=== PATIENT | female | born 1950 ===

== ENCOUNTER 2016-08-18 19:29 | Observation (INO) | payer OTHER, MEDICAID ==
[2016-08-18 19:30] VITALS: BMI 33.7
[2016-08-18 20:18] LABS: MEAN CELL VOLUME 122.1 fL (80.0-105.0); MEAN CORPUSCULAR HEMOGLOBIN 41.1 pg (25.0-35.0); MEAN CORPUSCULAR HGB CONC 33.7 g/dl (31.0-37.0); MEAN PLATELET VOLUME 9.4 fl (7.0-11.0); RED CELL DISTRIBUTION WIDTH 19.7 % (11.5-14.5)
--- NOTE | 2016-08-18 20:20 | ED PDOC ---
Arrival/HPI - General Historian: Patient - History of Present Illness Time/Duration: < month Symptom Onset: Gradual Symptom Course: Worsening Severity Level: 4 Activities at Onset: Rest Context: Home <Carmela Story - Last Filed: 08/18/16 22:12> <Reuben Yost - Last Filed: 08/18/16 22:33> - General Chief Complaint: Weakness/Neurological Deficit Time Seen by Provider: 08/18/16 19:36 - History of Present Illness Narrative History of Present Illness (Text): 08/18/16 20:15 This is a 66Y F with PMH HTN, HLD, CVA, chronic hematuria and vertigo who is here for weakness for the past 3 weeks. She reports since Mother's Day she had a blood vessel cauterized and has not been feeling well. She has been feeling weak and 2 weeks ago she had L shoulder/chest pain. She saw her dry starch operator who she reports "may repeat a stress test" if her pain continues. Her stress test was in January 2016 and she reports was normal. The patient also says that yesterday her tongue felt numb and then her whole body started to feel numb. She was resting at home at the time. She denies facial droop or slurred speech. Her numbness improved on its own. Today she began to have lightheadedness and felt SOB. She denies n/v/d, CP, numbness/tingling, fever, chills, vision changes, weight loss. Patient says she has been having chronic hematuria for many years. 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 (Carmela Story) Past Medical History - Provider Review Nursing Documentation Reviewed: Yes - Cardiac Hx Cardiac Disorders: Yes Hx Hypertension: Yes - Pulmonary Hx Respiratory Disorders: No - Neurological Hx Neurological Disorder: Yes Hx Migraine: Yes Hx Vertigo: Yes Other/Comment: Short term memory loss - HEENT Hx HEENT Disorder: No - Renal Hx Renal Disorder: No - Endocrine/Metabolic Hx Endocrine Disorders: No - Hematological/Oncological Hx Blood Disorders: Yes Hx Cancer: Yes (melanoma) - Integumentary Hx Dermatological Disorder: No - Gastrointestinal Hx Gastrointestinal Disorders: Yes Other/Comment: Colonic polyps - Genitourinary/Gynecological Hx Genitourinary Disorders: Yes Hx Hematuria: Yes - Psychiatric Hx Psychophysiologic Disorder: No Hx Substance Use: No - Surgical History Hx Orthopedic Surgery: Yes (L knee x2) Other/Comment: cyst removal from both breasts. right brest duct removal <Bishnu Storyystal - Last Filed: 08/18/16 22:12> Family/Social History - Physician Review Nursing Documentation Reviewed: Yes Family/Social History: Hypertension, CAD/VA Smoking Status: Never Smoked Hx Alcohol Use: No Hx Substance Use: No <AlexsanderousmaneCarmela - Last Filed: 08/18/16 22:12> Allergies/Home Meds <AlexsanderousmaneCarmela - Last Filed: 08/18/16 22:12> <Reuben Yost - Last Filed: 08/18/16 22:33> Allergies/Adverse Reactions: Allergies nut - unspecified Adverse Reaction (Verified 08/18/16 19:32) ANAPHYLAXIS shellfish derived Adverse Reaction (Verified 08/18/16 19:32) ANGIOEDEMA FRUIT Allergy (Uncoded 08/18/16 19:32) SHORTNESS OF BREATH Home Medications: Home Meds Medication Instructions Recorded Confirmed Clopidogrel [Plavix] 1 tab PO DAILY 08/18/16 08/18/16 Levocetirizine Dihydrochloride 1 tab PO DAILY 08/18/16 08/18/16 [Xyzal] Pantoprazole [Protonix EC Tab] 1 tab PO DAILY 08/18/16 08/18/16 Simvastatin [Zocor] 1 tab PO DAILY 08/18/16 08/18/16 Zolpidem [Ambien] 1 tab PO PRN PRN 08/18/16 08/18/16 Review of Systems - Physician Review All systems were reviewed & negative as marked: Yes - Review of Systems Constitutional: Fatigue. absent: Fevers, Night Sweats Eyes: Normal. absent: Vision Changes ENT: Normal. absent: Hearing Changes Respiratory: SOB. absent: Cough, Sputum Cardiovascular: Normal. absent: Chest Pain, Palpitations, Edema Gastrointestinal: Normal. absent: Abdominal Pain, Diarrhea, Nausea, Vomiting Genitourinary Female: Hematuria. absent: Dysuria, Frequency Musculoskeletal: Normal. absent: Arthralgias, Back Pain Skin: Normal. absent: Rash, Pruritis Neurological: Dizziness, Other (weakness) Endocrine: Normal. absent: Diaphoresis Hemo/Lymphatic: Normal. absent: Adenopathy Psychiatric: Normal. absent: Anxiety, Depression <AlexsanderBishnu romeoCarmela - Last Filed: 08/18/16 22:12> Physical Exam Vital Signs Reviewed: Yes Temperature: Afebrile Blood Pressure: Normal Pulse: Tachycardic Respiratory Rate: Normal Appearance: Positive for: Well-Appearing, Non-Toxic, Comfortable Pain Distress: None Mental Status: Positive for: Alert and Oriented X 3 Finger Stick Blood Glucose: 199 - Systems Exam Head: Present: Atraumatic, Normocephalic Pupils: Present: PERRL Extroacular Muscles: Present: EOMI Conjunctiva: Present: Normal Mouth: Present: Moist Mucous Membranes Neck: Present: Normal Range of Motion Respiratory/Chest: Present: Clear to Auscultation, Good Air Exchange. No: Respiratory Distress, Accessory Muscle Use Cardiovascular: Present: Regular Rate and Rhythm, Normal S1, S2. No: Murmurs Abdomen: Present: Normal Bowel Sounds. No: Tenderness, Distention, Peritoneal Signs Back: Present: Normal Inspection Upper Extremity: Present: Normal Inspection. No: Cyanosis, Edema Lower Extremity: Present: Normal Inspection. No: Edema Neurological: Present: GCS=15, CN II-XII Intact, Speech Normal, Motor Func Grossly Intact, Normal Sensory Function Skin: Present: Warm, Dry, Normal Color. No: Rashes Psychiatric: Present: Alert, Oriented x 3, Normal Insight, Normal Concentration <PorshaCarmela - Last Filed: 08/18/16 22:12> <Reuben Yost - Last Filed: 08/18/16 22:33> Vital Signs Temp Pulse Pulse Resp BP BP Pulse Ox 08/18/16 22:11 82 16 133/74 97 08/18/16 19:33 91 H 17 138/80 08/18/16 19:30 98.3 F 92 H 24 139/78 99 Medical Decision Making Re-evaluation Time: 21:59 Reassessment Condition: Unchanged - Lab Interpretations I have reviewed the lab results: Yes Interpretation: Abnormal lab values - RAD Interpretation Lead Material Handler: Radiologist - EKG Interpretation Interpreted by ED Physician: Yes Type: 12 lead EKG Comparison: No previous EKG avail. <Carmela Story - Last Filed: 08/18/16 22:12> <Reuben Yost - Last Filed: 08/18/16 22:33> ED Course and Treatment: 08/18/16 21:06 Impression: This is a 66Y F with PMH HTN, CVA, HLD, chronic hematuria and vertigo here for weakness x 3 weeks. DDX: CVA v. anemia Plan: -- CBC, CMP, U/A, D-dimer, Pt/PTT -- EKG, CXR -- CT head --Reassess Progress note: Patient noted to have abnormal CBC with leukocytosis, anemia and thrombocytopenia. D-dimer elevated. CBC repeated. CT angio ordered. CT head and CT angio noted to be negative for acute abnormality. Spoke with Dr. Will who is covering [facility] who will accept the patient into their service. Spoke with Dr. Bermudez, size marker who suggested that patient probably has leukemia and may be in acute blast crisis. She will need to be transfused 2U of Irradiated blood products only. Dr. Bermudez reports she will see the patient in the AM and may want to transfer patient to a larger facility who has a more extensive cancer center. Prior Visits: Notes and results from previous visits were reviewed. 08/18/16 21:47 Admit Patient: Re-evaluation. Patient feels the same. Discussed results and plan to admit with patient who expresses understanding. All questions answered and there is agreement with the plan. (Carmela Story) In agreement with resident note, which includes further HPI details. Patient was seen and evaluated with resident, came up with plan and treatment together. 08/18/16 22:28 Patient seen and examined with resident. Her lab results are noted and concerning for a possible new leukemia diagnosis with possible blast crisis. Case was discussed with Dr. Will, who said to admit to Dr. Damon' service. Resident discussed case with Dr. Bermudez, who recommended blood transfusion of irradiated PRBCs and she will assess the case in the am and advise. (Reuben Yost ) - Lab Interpretations Lab Results: 08/18/16 21:15 08/18/16 20:00 Lab Results 08/18/16 21:33: Blood Type Confirm A POSITIVE 08/18/16 21:20: Blood Type A POSITIVE, Antibody Screen Negative, Crossmatch See Detail, BBK History Checked No verified bt 08/18/16 21:15: WBC 100.8 H*, RBC 1.47 L, Hgb 6.0 L*, Hct 17.8 L*, MCV 121.1 H, MCH 40.8 H, MCHC 33.7, RDW 19.9 H, Plt Count 43 L*, MPV 8.9, [place] % (Auto) 0.4 L , Eos % (Auto) 0.0 L, [place] # 0.4, Eos # 0.0 08/18/16 20:52: Urine Color Yellow, Urine Appearance Clear, Urine pH 6.0, Ur Specific [place] 1.025, Urine Protein Negative, Urine Glucose (UA) Negative, Urine Ketones Negative, Urine Blood Large H, Urine Nitrate Negative, Urine Bilirubin Negative, Urine Urobilinogen 0.2, Ur Leukocyte Esterase Trace H, Urine RBC 10 - 15, Urine WBC 2 - 5, Ur Epithelial Cells 3 - 4, Urine Bacteria Rare, Hyaline Casts 0 - 2 08/18/16 20:00: Uric Acid 7.4 H 08/18/16 20:00: PT 10.7, INR 0.99, APTT 20.5 L, D-Dimer, Quantitative 1.63 H 08/18/16 20:00: Sodium 138, Potassium 4.0, Chloride 104, Carbon Dioxide 25, Anion Gap 13, BUN 32 H, Creatinine 1.0, Est GFR ( Amer) > 60, Est GFR ( Non-Af Amer) 56, Random Glucose 157 H, Calcium 9.0, Magnesium 2.1, Total Bilirubin 0.3, AST 39, ALT 33, Alkaline Phosphatase 47, Lactate Dehydrogenase 2832 H, Total Creatine Kinase 30 L, Troponin I < 0.01, Total Protein 7.0, Albumin 4.1, Globulin 2.9, Albumin/Globulin Ratio 1.4, Lipase 162 08/18/16 20:00: WBC 111.2 H*, RBC 1.63 L, Hgb 6.7 L*, Hct 19.9 L*, MCV 122.1 H, MCH 41.1 H, MCHC 33.7, RDW 19.7 H, Plt Count 52 L, MPV 9.4, Gran % Pending, Lymph % (Auto) Pending, [place] % (Auto) Pending, Eos % (Auto) Pending, Baso % ( Auto) Pending, Gran # Pending, Lymph # Pending, [place] # Pending, Eos # Pending, Baso # Pending - RAD Interpretation Narrative RAD Interpretations (Text): 08/18/16 21:58 EXAM:CT Angiography Chest With Intravenous Contrast EXAM DATE/TIME: 08/18/2016 8:35 PM COMPARISON: There are no prior studies for comparison. FINDINGS: Artifacts: Motion artifact degrades image quality. Heart, aorta and Pulmonary arteries: Heart size is normal. There is trace pericardial effusion.There is no aneurysm or dissection.There are vascular calcifications. There is perfusion of the 3 arch vessels.There are no pulmonary emboli. Lungs and pleural spaces: Trachea and main bronchi are patent. There is minimal apical scarring. There is dependent atelectasis greatest in the lower lobes. There is atelectasis /scarring in the middle lobe and lingula. There is fatty pleural thickening at the left base. There is no focal consolidation. There are no effusions. OLESYA FARMER | Preliminary Radiology Report STORAGE FACILITY HOUSEKEEPER (QA) DISCREPANCY? If there is a discrepancy between the preliminary and final interpretation, please notify [email or web address] via [email or web address]. If you do not have access to our QA portal, call our QA team at [phone] CONFIDENTIALITY STATEMENT This report is intended only for the use of the referring physician, and only in accordance with law, If you received this in error, call [phone] Page 2 of 2 Mediastinum: Esophagus is unremarkable. There no pathologically enlarged mediastinal or hilar nodes. Thyroid: Thyroid is unremarkable Bones/joints: There are no acute osseous abnormalities Soft tissues: unremarkable Upper abdomen: There are no acute abnormalities in the visualized portion of the abdomen. IMPRESSION: Slightly limited by patient motion, no aneurysm, dissection or pulmonary embolus ; no focal pneumonia CT Head Without Intravenous Contrast 08/18/2016 7:59 PM COMPARISON: There are no prior studies for comparison. FINDINGS: Brain: There is prominence of sulci, gyri and ventricles. There is no midline shift. There are no intraaxial or extra axial mass lesions or areas of hemorrhage. Wade-white differentiation is maintained. Ventricles: See above. Bony structures: Cranial vault is intact. Soft tissues: unremarkable Sinuses: There is no acute sinusitis. Ears and mastoids: Middle ears and mastoids unremarkable. Orbits: Orbital contents are unremarkable. IMPRESSION: No acute intracranial abnormality 08/18/16 22:00 CXR showed no active disease. Please see final report. (Carmela Story) Radiology Orders: 08/18/16 19:59 HEAD W/O CONTRAST [CT] Stat CHEST PORTABLE [RAD] Stat 08/18/16 20:35 ANGIO CHEST PE PROTOCOL [CT] Stat - EKG Interpretation EKG Interpretation (Text): 08/18/16 22:00 Hr: 94. NSR. Intervals normal. (Carmela Story) - Medication Orders Current Medication Orders: Discontinued Medications Iodixanol (Visipaque 320 Mg/Ml 100 Ml) Confirm Administered Dose 100 ml IV .STThe Whistle- EasySize ONE Stop: 08/18/16 20:41 - PA / GARBAGE COLLECTOR SUPERVISOR / Resident Statement / has reviewed & agrees with the documentation as recorded. BRUCE has examined the patient and agrees with the treatment plan. <Reuben Yost - Last Filed: 08/18/16 22:33> Disposition/Present on Arrival - Present on Arrival Any Indicators Present on Arrival: No History of DVT/PE: No History of Uncontrolled Diabetes: No Urinary Catheter: No History of Decub. Ulcer: No History Surgical Site Infection Following: None - Disposition Have Diagnosis and Disposition been Completed?: Yes Disposition Time: 22:10 Patient Plan: Admission <Carmela Story - Last Filed: 08/18/16 22:12> <Reuben Yost - Last Filed: 08/18/16 22:33> - Disposition Diagnosis: Elevated WBCs, Anemia Disposition: HOSPITALIZED Patient Problems: Current Active Problems Problem Status Onset Anemia Acute Elevated WBCs Acute Condition: FAIR Print Language: MOHAWK Referrals: Jasson Velazquez MD [Primary Care Provider] - Follow up with primary Chinyere Bermudez MD [Staff Provider] - Follow up with primary
[2016-08-18 20:26] LABS: ALB/GLOB RATIO 1.4 (1.1-1.8); ALKALINE PHOSPHATASE 47 U/L (38-133); ALT/SGPT 33 U/L (7-56); AST/SGOT 39 U/L (15-39); BILIRUBIN,TOTAL 0.3 mg/dL (0.2-1.3); BLOOD UREA NITROGEN 32 mg/dL (7-21); CARBON DIOXIDE 25 mmol/L (21-33); CHLORIDE 104 mmol/L (98-107); GFR AFRICAN-AMERICAN > 60; GLUCOSE,RANDOM 157 mg/dL (70-110); LIPASE 162 U/L (23-300); MAGNESIUM 2.1 mg/dL (1.7-2.2); SODIUM 138 mmol/L (132-148)
[2016-08-18 20:29] LABS: INR 0.99 (0.93-1.08); PARTIAL THROMBOPLASTIN TIME 20.5 Seconds (23.7-30.8); WHITE BLOOD COUNT 111.2 10^3/ul (4.5-11.0)
[2016-08-18 20:30] LABS: HEMATOCRIT 19.9 % (36.0-48.0); PLATELET COUNT 52 10^3/uL (120.0-450.0)
[2016-08-18 20:31] LABS: D DIMER 1.63 mg/L FEU (0-0.50)
[2016-08-18] MEDS ORDERED: Iodixanol 320 MG/ML 100 ML BOTTLE IV ONE (20:40)
[2016-08-18 20:44] LABS: TROPONIN I < 0.01 ng/mL
[2016-08-18 21:12] LABS: URINE BILIRUBIN NEGATIVE (NEGATIVE); URINE BLOOD LARGE (NEGATIVE); URINE GLUCOSE (UA) NEGATIVE (NEGATIVE); URINE KETONE NEGATIVE (NEGATIVE); URINE LEUKOCYTE ESTERASE TRACE Leu/uL (NEGATIVE); URINE PROTEIN NEGATIVE mg/dL (<30 mg/dL); URINE UROBILINOGEN 0.2 E.U./dL (<1 E.U./dL)
[2016-08-18 21:23] LABS: URINE APPEARANCE CLEAR (CLEAR); URINE COLOR YELLOW (YELLOW)
[2016-08-18 21:24] LABS: ADD MANUAL DIFF? NO
[2016-08-18 21:34] LABS: MEAN CELL VOLUME 121.1 fL (80.0-105.0); MEAN CORPUSCULAR HEMOGLOBIN 40.8 pg (25.0-35.0); MEAN CORPUSCULAR HGB CONC 33.7 g/dl (31.0-37.0); MEAN PLATELET VOLUME 8.9 fl (7.0-11.0); MONO # 0.4 (0.1-0.6); MONO % 0.4 % (1.0-6.0); RED CELL DISTRIBUTION WIDTH 19.9 % (11.5-14.5)
--- NOTE | 2016-08-18 21:39 | CT ---
EXAM: CT Head Without Intravenous Contrast CLINICAL HISTORY: 66 years old, female; Pain; Headache; Headache not specified; Additional info: R/O CVA TECHNIQUE: Axial computed tomography images of the head/brain without intravenous contrast. This CT exam was performed using one or more of the following dose reduction techniques: automated exposure control, adjustment of the mA and/or kV according to patient size, and/or use of iterative reconstruction technique. EXAM DATE/TIME: 08/18/2016 7:59 PM COMPARISON: There are no prior studies for comparison. FINDINGS: Brain: There is prominence of sulci, gyri and ventricles. There is no midline shift. There are no intra-axial or extra axial mass lesions or areas of hemorrhage. Wade-white differentiation is maintained. Ventricles: See above. Bony structures: Cranial vault is intact. Soft tissues: unremarkable Sinuses: There is no acute sinusitis. Ears and mastoids: Middle ears and mastoids unremarkable. Orbits: Orbital contents are unremarkable. IMPRESSION: No acute intracranial abnormality
[2016-08-18 21:42] LABS: WHITE BLOOD COUNT 100.8 10^3/ul (4.5-11.0)
[2016-08-18 21:43] LABS: HEMATOCRIT 17.8 % (36.0-48.0)
[2016-08-18 21:44] LABS: PLATELET COUNT 43 10^3/uL (120.0-450.0)
[2016-08-18 21:56] LABS: URINE BACTERIA RARE (NEG)
[2016-08-19] MEDS: Sodium Chloride 0.9% 1,000 ML IV SCH ×2 (00:33→20:53)
[2016-08-19 07:46] LABS: MEAN CELL VOLUME 115.3 fL (80.0-105.0); MEAN CORPUSCULAR HEMOGLOBIN 38.1 pg (25.0-35.0); MEAN PLATELET VOLUME 9.9 fl (7.0-11.0); PLATELET COUNT 42 10^3/uL (120.0-450.0); RED CELL DISTRIBUTION WIDTH 21.5 % (11.5-14.5)
[2016-08-19] MEDS: Pantoprazole 40 mg EC Tab PO SCH (07:47)
[2016-08-19 07:54] LABS: ADD MANUAL DIFF? NO; HEMATOCRIT 23.3 % (36.0-48.0)
[2016-08-19 08:01] LABS: ALB/GLOB RATIO 1.3 (1.1-1.8); ALKALINE PHOSPHATASE 38 U/L (38-133); ALT/SGPT 31 U/L (7-56); AST/SGOT 30 U/L (15-39); BILIRUBIN,TOTAL 0.4 mg/dL (0.2-1.3); BLOOD UREA NITROGEN 29 mg/dL (7-21); CALCIUM 8.5 mg/dL (8.4-10.5); CARBON DIOXIDE 26 mmol/L (21-33); CHLORIDE 106 mmol/L (98-107); GFR AFRICAN-AMERICAN > 60; GLUCOSE,RANDOM 105 mg/dL (70-110); POTASSIUM 4.4 mmol/L (3.6-5.0); SODIUM 138 mmol/L (132-148); TOTAL PROTEIN 6.9 g/dL (5.8-8.3)
[2016-08-19 08:17] LABS: ADD MANUAL DIFF? NO
--- NOTE | 2016-08-19 08:26 | RAD ---
HISTORY: SOB COMPARISON: No prior. FINDINGS: LUNGS: No active pulmonary disease. PLEURA: No significant pleural effusion identified, no pneumothorax apparent. CARDIOVASCULAR: Normal. OSSEOUS STRUCTURES: No significant abnormalities. VISUALIZED UPPER ABDOMEN: Normal. OTHER FINDINGS: None. IMPRESSION: No active disease.
--- NOTE | 2016-08-19 08:31 | CP.PCM.HP ---
History of Present Illness - History of Present Illness History of Present Illness: PGY-1 h&P 66 yo angie with PMH of HTN, HLD, CVA, vertigo and chronic hematuria presented to ED for weakness. Patient states that about 2-3 weeks ago she had a blood vessel cauterized and since then has not been feeling well. She states that has had migraine headaches and fatigue. Patient state that yesterday she felt numbness throughout her body her symptoms were progressively worsening so she decided to come to the ED. She had chest pain 2 weeks and saw her program planner. She was told her heart was doing well and her stress test in Jan was normal. She also reports teeth sensitivity, chills, constipation, increase of SOB with excretion, occasional palpitations, and sore throat. Patient states that she has hot flashes that occurs at night for many years. She denies wt loss, fever, abd pain, n/v. Patient reports history of vertigo that is intermittent. 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 Patient states that she had melanoma that was removed. She had 5 polpys on colonoscopy that were removed. PMH: HTN, HLD, CVA, vertigo, hematuria, melanoma s/p resection PSH: Left knee surgery, breast cyst removal bilateral, right breast duct removal social hx: former smoker (quit 2009) denies alcohol use, denies illicit drug use fam hx: cancer in multiple siblings allergy: nuts, shellfish, fruit, percocet- hallucinations Present on Admission - Present on Admission Any Indicators Present on Admission: No Review of Systems - Constitutional Constitutional: Chills, Fatigue, Night Sweats. absent: Fever, Weight Loss - EENT Eyes: absent: Blurred Vision, Change in Vision Nose/Mouth/Throat: Sore Throat. absent: Nasal Congestion - Cardiovascular Cardiovascular: Chest Pain, Dyspnea on Exertion, Palpitations. absent: Dyspnea - Respiratory Respiratory: Dyspnea on Exertion. absent: Cough, Hemoptysis - Gastrointestinal Gastrointestinal: Constipation, Nausea. absent: Abdominal Pain, Diarrhea, Vomiting - Genitourinary Genitourinary: Hematuria. absent: Dysuria, Urinary Frequency - Musculoskeletal Musculoskeletal: Numbness. absent: Atrophy, Muscle Weakness, Myalgias - Integumentary Integumentary: absent: Rash, Skin Ulcer, Swelling, Wounds - Neurological Neurological: Dizziness, Numbness, Headaches, Vertigo, Weakness. 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) - RENAL Hx Chronic Kidney Disease: No - ENDOCRINE/METABOLIC Hx Endocrine Disorders: No - HEMATOLOGICAL/ONCOLOGICAL Hx Blood Disorders: Yes Hx Cancer: Yes (melanoma of right breast) - INTEGUMENTARY Hx Dermatological Problems: No - MUSCULOSKELETAL/RHEUMATOLOGICAL Hx Musculoskeletal Disorders: Yes Hx Falls: Yes - GASTROINTESTINAL Hx Gastrointestinal Disorders: Yes Other/Comment: 5 colonic polyps - GENITOURINARY/GYNECOLOGICAL Hx Genitourinary Disorders: Yes Hx Hematuria: Yes (chronic) - PSYCHIATRIC Hx Psychophysiologic Disorder: No Hx Substance Use: No - SURGICAL HISTORY Hx Surgeries: Yes Hx Orthopedic Surgery: Yes (Left knee x2) Other/Comment: cyst removal from both breasts. right brest duct removal Meds Allergies/Adverse Reactions: Allergies Allergy/AdvReac Type Severity Reaction Status Date / Time nut - unspecified AdvReac ANAPHYLAXIS Verified 08/18/16 19:32 shellfish derived AdvReac ANGIOEDEMA Verified 08/18/16 19:32 FRUIT Allergy SHORTNESS Uncoded 08/18/16 19:32 OF BREATH Physical Exam - Constitutional Appears: Well, No Acute Distress - Head Exam Head Exam: ATRAUMATIC, NORMOCEPHALIC - Eye Exam Eye Exam: Normal appearance - ENT Exam ENT Exam: Mucous Membranes Moist - Respiratory Exam Respiratory Exam: Clear to Auscultation Bilateral, NORMAL BREATHING PATTERN. absent: Rales, Rhonchi, Wheezes, Respiratory Distress - Cardiovascular Exam Cardiovascular Exam: REGULAR RHYTHM, +S1, +S2. absent: Tachycardia, Diastolic murmur, Systolic Murmur - GI/Abdominal Exam GI & Abdominal Exam: Normal Bowel Sounds, Soft. absent: Distended, Firm, Guarding, Tenderness - Extremities Exam Extremities exam: Positive for: normal inspection. Negative for: pedal edema - Neurological Exam Neurological exam: Alert, Oriented x3 - Skin Skin Exam: Dry, Intact, Pallor, Pallor, Warm Results - Vital Signs Recent Vital Signs: Last Vital Signs Temp 98.2 F 08/19/16 06:28 Pulse 74 08/19/16 06:28 Resp 24 08/19/16 06:28 BP 115/61 08/19/16 06:28 Pulse Ox 99 08/19/16 05:37 - Labs Result Diagrams: 08/19/16 05:00 08/19/16 05:00 Labs: Laboratory Results - last 24 hr 08/19/16 08/19/16 05:00 05:00 WBC 93.0 H* RBC 2.02 L Hgb 7.7 L D Hct 23.3 L MCV 115.3 H MCH 38.1 H MCHC 33.0 RDW 21.5 H Plt Count 42 L* MPV 9.9 Sodium 138 Potassium 4.4 Chloride 106 Carbon Dioxide 26 Anion Gap 10 BUN 29 H Creatinine 0.9 Est GFR ( Amer) > 60 Est GFR (Non-Af Amer) > 60 Random Glucose 105 Calcium 8.5 Total Bilirubin 0.4 AST 30 ALT 31 Alkaline Phosphatase 38 Total Protein 6.9 Albumin 3.9 Globulin 3.0 Albumin/Globulin Ratio 1.3 Assessment & Plan - Assessment and Plan (Free Text) Assessment: 66 yo female with PMH of HTN, HLD, CVA, vertigo and chronic hematuria presented to ED for weakness and numbness, found to have WBC of 100, anemia of 6.7, and thrombocytopenia. Plan: 1. elevated WBC - 111 on admission - heme/onc consulted - cont to monitor 2. anemia - transfused 1 unit irradited pRBC - IVF - iron studies, TSH, folate and B12 - continue to monitor 3. weakness/numbess - head CT- negative 4. sob on exertion - d-dimer elevated - CTA negative 3. hematuria - consult urology - urine culture ppx GI- protonix DVT- SCDs
[2016-08-19 08:47] LABS: IRON 197 ug/dL (45-180)
[2016-08-19] MEDS ORDERED: Non Formulary Medication (Simvastatin [Zocor] 1 TAB) PO SCH (10:00)
--- NOTE | 2016-08-19 10:48 | CT ---
PROCEDURE: CT Chest with contrast (Pulmonary Angiogram) HISTORY: sob - r/o PE COMPARISON: None available. TECHNIQUE: Axial computed tomography images were obtained of the chest in the pulmonary arterial phase of enhancement. Coronal and sagittal reformatted images were created and reviewed. Study is limited by motion artifact. Intravenous contrast dose: 100 cc Visipaque 320 Radiation dose: Total exam DLP = 490.66 mGy-cm. This CT exam was performed using one or more of the following dose reduction techniques: Automated exposure control, adjustment of the mA and/or kV according to patient size, and/or use of iterative reconstruction technique. FINDINGS: PULMONARY ARTERIES: Visualized portions of the pulmonary trunk, right and left main, lobar and segmental and proximal subsegmental branches of the pulmonary arteries are patent. No definitive filling defects seen to suggest acute central pulmonary embolus. The pulmonary trunk measures 2.74 cm in transverse dimension. AORTA: Ascending thoracic aorta exhibits normal caliber measuring approximately 2.26 cm. Descending thoracic aorta measures approximately 2.1 cm. LUNGS: Discrete localized area of atelectasis/scarring in the left lingular and to a lesser degree middle lobe regions extending to the pleural surfaces. . The. Minor on atelectasis seen in the left posterior lung field. . . Small approximately 3.7 mm elliptical shaped calcified granuloma right middle lobe. PLEURAL SPACES: Unremarkable. No effusion or pneuomothorax. HEART: The heart size is upper limits of normal/borderline enlarged. No significant pericardial effusion. . LYMPH NODES: Few small nonspecific mediastinal lymph nodes are present. BONES, CHEST WALL: .There are no acute compression fractures of the thoracic spine. Mild multilevel degenerative spondylosis with mild dextroscoliosis. OTHER FINDINGS: Small hiatal hernia with slight wall thickening of the distal esophagus which could be due to protrusion of gastric mucosa. Possibility of esophagitis not excluded. Clinical correlation recommended. Followup GI consultation could be performed further evaluation is required. . Suspect small splenule anterior and lateral to the upper/mid aspect of the splenic parenchyma. IMPRESSION: Limited motion degraded study. No evidence of pulmonary embolus. . Discrete localized area of atelectasis/scarring in the left lingular and to a lesser degree middle lobe regions extending to the pleural surfaces. . The. Minor atelectasis seen in the left posterior lung field. Small approximately 3.7 mm calcified granuloma right middle lobe
[2016-08-19 13:23] LABS: FOLATE 9.4 ng/mL
[2016-08-19 18:31] LABS: HEMATOCRIT 26.7 % (36.0-48.0); MEAN CELL VOLUME 109.9 fL (80.0-105.0); MEAN CORPUSCULAR HEMOGLOBIN 38.7 pg (25.0-35.0); MEAN CORPUSCULAR HGB CONC 35.2 g/dl (31.0-37.0); MEAN PLATELET VOLUME 9.1 fl (7.0-11.0); RED CELL DISTRIBUTION WIDTH 23.8 % (11.5-14.5)
[2016-08-19 18:34] LABS: WHITE BLOOD COUNT 90.2 10^3/ul (4.5-11.0)
--- NOTE | 2016-08-19 18:50 | CON ---
DATE: 08/19/2016 REASON FOR CONSULTATION: Elevated WBC, thrombocytopenia as well as anemia. HISTORY OF PRESENT ILLNESS: The patient is a 66-year-old female with past medical history significan t for hypertension, hyperlipidemia, CVA, vertigo and chronic hematuria who presented to the Emergency Room with complaints of weakness ongoing for about 3 weeks, but progressively worsening. She states she was seen at her PMD's office at the beginning of July and did have some blood work that done at t hat time, but has not been called back about any abnormality. She has been seeing the same primary f or several years and there has been no prior history of anemia or leukocytosis. She also was seen by agate setter about 2 weeks ago as she had some persistent chest pain, had a complete workup at that point which did not reveal any abnormalities either. She also had a stress test in January, which w as nonrevealing. She reports multiple complaints including fatigue, chills, night sweats which have been ongoing for several years. She does have some loss of appetite, but has not really lost any alin ght. No fevers. No abdominal pain, no nausea, no vomiting, no diarrhea, no constipation. Has not n oted any bleeding from her rectum. 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 PAST MEDICAL HISTORY: As above, hypertension, hyperlipidemia, CVA, vertigo, status post resection of melanoma. PAST SURGICAL HISTORY: Significant for left knee surgery, breast cyst removal bilaterally. ALLERGIES: No known drug allergies. SHE DOES HAVE ALLERGIES TO NUTS AND SHELLFISH. MEDICATIONS: As per the MAR. SOCIAL HISTORY: Positive for smoking, but she quit about 5-7 years ago. Denies any alcohol use. De nies any illicit drug use. FAMILY HISTORY: Positive for cancer with known history of brain tumor in the family, but there is no family history of leukemia. REVIEW OF SYSTEMS: As per the HPI. PHYSICAL EXAMINATION: VITAL SIGNS: Reveal a temperature of 98.2, pulse of 69, respiratory rate of 18, and a blood pressure 133/73. GENERAL: The patient is an elderly pleasant female, lying in bed, in no acute distress. HEAD AND NECK: Normocephalic, atraumatic. EYES: Pupils equal, round, reactive to light and accommodation. Extraocular muscles are intact. Th ere is pallor marked. No icterus is noted. NECK: Supple with no adenopathy, no JVD, no thyromegaly. LUNGS: Clear to auscultation bilaterally with no rales or rhonchi. CARDIOVASCULAR: S1, S2 is heard. ABDOMEN: Positive bowel sounds, soft, nontender, nondistended, no organomegaly is palpated. EXTREMITIES: There is no edema, clubbing, or cyanosis. LABORATORY DATA: Reveal a white count of 93; on admission it was 111.2. Hemoglobin 6.7 on admission , platelet count of 52,000 on admission. MCV is 122.1, otherwise within normal limits. Coag studies reveal a normal PT, PTT, INR. Chemistries are within normal limits. BUN and creatinine are 29 and 0.9. Iron studies are consistent with anemia of chronic disease. B12 level was over 1000. Folate l evel was 9.4. TSH is within normal limits. LFTs are within normal limits. She also had a CT of the chest done on admission, which shows some left lingular atelectasis, but no other significant findin gs. ASSESSMENT AND PLAN: Elderly female with marked leukocytosis. Peripheral smear is reviewed. There are a few blasts, but multiple myelocytes and metamyelocytes. Also, basophils any eosinophilia are n oted. 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 Will have to review the patient's old CBCs from her primary physici an to determine if this is an acute onset of leukocytosis or has there been ongoing leukocytosis. Wi ll need to also do a bone marrow evaluation on this patient to determine if patient is in chronic pha se as well or in acute blast crisis. Discussed with patient at length regarding the above findings a nd possible bone marrow examination. If the flow cytometry returns that patient is in acute phase aren cade need to be transferred to [place]. She is aware of the above plan. Thank you for the consult and we will follow. Chinyere Bermudez MD cc: [id number] TT: 08/19/2016 18:49:51 Confirmation # [id number] Dictation # [id number] mn
--- NOTE | 2016-08-19 19:13 | CON ---
DATE: 08/19/2016 CHIEF COMPLAINT: Hematuria. HISTORY OF PRESENT ILLNESS: This is a 66-year-old female who was seen in [facility] in h er room. The patient has multiple medical issues. She has a history of chronic hematuria which she reports is from crystals in her urine. She was found to have some chronic weakness as well, presente d to the Emergency Room with dark colored urine. She reports having some type of cauterization, alth ough she is not sure of what recently. She was found to have a very elevated WBC count and was admit kenzie. The patient currently reports she is voiding well. She denies any dysuria. She does have mild urinary frequency. She denies urgency. The urine has now grossly cleared. A consultation was r equested regarding the hematuria. PAST MEDICAL HISTORY: Significant for hypertension, blood disorder, CVA, vertigo, hematuria, migrain es, and melanoma. PAST SURGICAL HISTORY: Colonoscopy, knee surgery, melanoma removal, breast biopsy. MEDICATIONS: Include Ambien, Claritin, Protonix, Zocor, and IV fluids. ALLERGIES: NUTS AND SHELLFISH. FAMILY HISTORY: Noncontributory. SOCIAL HISTORY: Denies current smoking, although she did smoke in the past. Denies EtOH use. REVIEW OF SYSTEMS: A 12-point review of systems was obtained. Positive for hematuria. Positive for weakness. Positive for headache. Positive for shortness of breath and palpitations. Positive for numbness and tingling in her lower extremities. Positive for difficulty ambulating. Other systems a re negative. PHYSICAL EXAMINATION: GENERAL: The patient is awake, alert, answering questions. She is in no acute distress. She is afe brile. VITAL SIGNS: Temp of 98.2, pulse of 69, BP 133/73, respirations 18. NECK: Supple. There is no adenopathy noted. CHEST: Reveals normal inspiratory effort. CARDIAC: Showed positive S1, S2. There is no peripheral edema noted. ABDOMEN: Obese, soft, nontender, nondistended. There is no hepatosplenomegaly noted. There is no c ostovertebral angle tenderness noted. EXTREMITIES: There is no cyanosis or edema. LABORATORY DATA: WBC count has come down to 93,000 from 111 on admission, platelet count of 42,000, hemoglobin up to 7.7 after transfusion. GFR is greater than 60. Urinalysis showed 10-15 RBCs, 2-5 W BCs. Nitrites were negative. No current microbiology specimens are available. RADIOLOGIC EXAMINATION: The patient had a CT of the chest and a head CT and chest x-ray. There are no findings regarding kidneys on the chest CT noted. IMPRESSION AND PLAN: This is a 66-year-old male with an apparent blood disorder, markedly elevated W BC count. Urologically, the patient has a long history of hematuria and she reports being told this is from passing crystals. Given her blood disorder she likely is passing uric acid crystals are a pr oduct of cell turnover. An oncology consultation has been ordered and we will await further evaluati on and plan from oncology. The patient did not appear to have an acute urologic issue. The hematuri a does, however, need to be evaluated at some point. I would recommend a noncontrast CT scan of the abdomen and pelvis as well to evaluate the kidneys and assess for any stones. The patient will also need a cystoscopy at some point to rule out any intravesical pathology. She is currently voiding wel l with no complaints and this can be done as an outpatient. She has a much more acute issue of the m arkedly elevated WBC count, anemia and thrombocytopenia, which needs to be addressed. Thank you for allowing me to participate in the care of this patient. We will follow her with you. Pablo May MD cc: [id number] TT: 08/19/2016 19:11:54 Confirmation # [id number] Dictation # [id number] mn
[2016-08-19 20:08] VITALS: RESP 20
--- NOTE | 2016-08-19 22:49 | CARD ---
APPROVED REPORT EKG Measurement Heart [id number] <Conclusion> Normal sinus rhythm Normal ECG
[2016-08-20 06:09] VITALS: O2SAT 100
[2016-08-20 07:27] LABS: ALB/GLOB RATIO 1.3 (1.1-1.8); ALKALINE PHOSPHATASE 37 U/L (38-133); ALT/SGPT 34 U/L (7-56); AST/SGOT 30 U/L (15-39); BILIRUBIN,TOTAL 0.5 mg/dL (0.2-1.3); BLOOD UREA NITROGEN 22 mg/dL (7-21); CALCIUM 8.3 mg/dL (8.4-10.5); CARBON DIOXIDE 28 mmol/L (21-33); CHLORIDE 110 mmol/L (98-107); GFR AFRICAN-AMERICAN > 60; GLUCOSE,RANDOM 116 mg/dL (70-110); POTASSIUM 4.4 mmol/L (3.6-5.0); SODIUM 142 mmol/L (132-148); TOTAL PROTEIN 6.8 g/dL (5.8-8.3)
[2016-08-20 07:37] LABS: HEMATOCRIT 28.3 % (36.0-48.0)
[2016-08-20 07:38] LABS: MEAN CORPUSCULAR HGB CONC 33.9 g/dl (31.0-37.0); MEAN PLATELET VOLUME 9.9 fl (7.0-11.0); PLATELET COUNT 37 10^3/uL (120.0-450.0); RED CELL DISTRIBUTION WIDTH 24.8 % (11.5-14.5)
[2016-08-20 08:27] LABS: WHITE BLOOD COUNT 82.7 10^3/ul (4.5-11.0)
[2016-08-20 08:28] LABS: ADD MANUAL DIFF? NO
[2016-08-20] MEDS: Pantoprazole 40 mg EC Tab PO SCH (09:41)
[2016-08-20 11:27] LABS: RETIC% 2.81 % (0.5-1.5)
[2016-08-20 12:48] VITALS: BP 148/82; PULSE 68; TEMP 98.3
--- NOTE | 2016-08-20 14:29 | CP.PCM.DIS ---
<RahJackie - Last Filed: 08/22/16 10:36> Provider - Provider Date of Admission: 08/18/16 22:13 Attending physician: Armando Damon MD Primary care physician: Jasson Velazquez MD Consults: Heme/onc- Dr Bermudez Urology- Dr May. Time Spent in preparation of Discharge (in minutes): 45 Diagnosis - Discharge Diagnosis (1) Leukemoid reaction Status: Acute (2) Thrombocythemia Status: Acute (3) Anemia Status: Acute (4) HTN (hypertension) Status: Chronic (5) HLD (hyperlipidemia) Status: Chronic (6) CVA (cerebral vascular accident) Status: Chronic (7) Vertigo Status: Chronic Hospital Course - Lab Results Lab Results: Micro Results 08/19/16 10:25 Blood-Venous Blood Culture - Preliminary NO GROWTH AFTER 24 HOURS 08/19/16 10:25 Blood-Venous Blood Culture - Preliminary NO GROWTH AFTER 24 HOURS 08/19/16 03:20 Urine,Clean Catch Urine Culture - Final No Growth (<1,000 CFU/ML) Most Recent Lab Values WBC 82.7 10^3/ul (4.5-11.0) H* 08/20/16 05:00 RBC 2.46 10^6/uL (3.5-6.1) L 08/20/16 05:00 Hgb 9.6 gm/dL (12.0-16.0) L 08/20/16 05:00 Hct 28.3 % (36.0-48.0) L 08/20/16 05:00 MCV 115.0 fL (80.0-105.0) H 08/20/16 05:00 MCH 39.0 pg (25.0-35.0) H 08/20/16 05:00 MCHC 33.9 g/dl (31.0-37.0) 08/20/16 05:00 RDW 24.8 % (11.5-14.5) H 08/20/16 05:00 Plt Count 37 10^3/uL (120.0-450.0) L* 08/20/16 05:00 Manual Plt Count 40 K/mm3 (120-450) L* 08/20/16 07:00 MPV 9.9 fl (7.0-11.0) 08/20/16 05:00 Gran % TEST NOT PERFORMED 08/18/16 20:00 Lymph % (Auto) TEST NOT PERFORMED 08/18/16 20:00 Kane % (Auto) 0.4 % (1.0-6.0) L 08/18/16 21:15 Eos % (Auto) 0.0 % (1.5-5.0) L 08/18/16 21:15 Baso % (Auto) TEST NOT PERFORMED 08/18/16 20:00 Gran # TEST NOT PERFORMED 08/18/16 20:00 Lymph # TEST NOT PERFORMED 08/18/16 20:00 Kane # 0.4 (0.1-0.6) 08/18/16 21:15 Eos # 0.0 (0.0-0.7) 08/18/16 21:15 Baso # TEST NOT PERFORMED 08/18/16 20:00 ESR 60 mm/hr (0.0-20.0) H 08/18/16 20:00 Retic Count 2.81 % (0.5-1.5) H 08/20/16 07:00 PT 10.7 Seconds (9.9-11.8) 08/18/16 20:00 INR 0.99 (0.93-1.08) 08/18/16 20:00 APTT 20.5 Seconds (23.7-30.8) L 08/18/16 20:00 D-Dimer, Quantitative 1.63 mg/L FEU (0-0.50) H 08/18/16 20:00 Sodium 142 mmol/L (132-148) 08/20/16 06:30 Potassium 4.4 mmol/L (3.6-5.0) 08/20/16 06:30 Chloride 110 mmol/L (98-107) H 08/20/16 06:30 Carbon Dioxide 28 mmol/L (21-33) 08/20/16 06:30 Anion Gap 8 (10-20) L 08/20/16 06:30 BUN 22 mg/dL (7-21) H 08/20/16 06:30 Creatinine 0.8 mg/dL (0.5-1.4) 08/20/16 06:30 Est GFR ( Amer) > 60 08/20/16 06:30 Est GFR (Non-Af Amer) > 60 08/20/16 06:30 POC Glucose (mg/dL) 199 mg/dL (65-110) H 08/18/16 20:05 Random Glucose 116 mg/dL (70-110) H 08/20/16 06:30 Uric Acid 7.4 mg/dL (2.5-6.2) H 08/18/16 20:00 Calcium 8.3 mg/dL (8.4-10.5) L 08/20/16 06:30 Magnesium 2.1 mg/dL (1.7-2.2) 08/18/16 20:00 Iron 197 ug/dL (45-180) H 08/19/16 07:30 TIBC 321 ug/dL (265-497) 08/19/16 07:30 % Saturation 61 % (20-55) H 08/19/16 07:30 Total Bilirubin 0.5 mg/dL (0.2-1.3) 08/20/16 06:30 AST 30 U/L (15-39) 08/20/16 06:30 ALT 34 U/L (7-56) 08/20/16 06:30 Alkaline Phosphatase 37 U/L (38-133) L 08/20/16 06:30 Lactate Dehydrogenase 2832 U/L (333-699) H 08/18/16 20:00 Total Creatine Kinase 30 U/L (35-230) L 08/18/16 20:00 Troponin I < 0.01 ng/mL 08/18/16 20:00 Total Protein 6.8 g/dL (5.8-8.3) 08/20/16 06:30 Albumin 3.8 g/dL (3.0-4.8) 08/20/16 06:30 Globulin 3.0 gm/dL 08/20/16 06:30 Albumin/Globulin Ratio 1.3 (1.1-1.8) 08/20/16 06:30 Lipase 162 U/L (23-300) 08/18/16 20:00 Vitamin B12 > 1000 pg/mL (239-931) H 08/19/16 07:30 Folate 9.4 ng/mL 08/19/16 07:30 TSH 3rd Generation 1.36 mIU/mL (0.46-4.68) 08/19/16 07:30 Urine Color Yellow (YELLOW) 08/18/16 20:52 Urine Appearance Clear (CLEAR) 08/18/16 20:52 Urine pH 6.0 (4.7-8.0) 08/18/16 20:52 Ur Specific Pierce 1.025 (1.005-1.035) 08/18/16 20:52 Urine Protein Negative mg/dL (<30 mg/dL) 08/18/16 20:52 Urine Glucose (UA) Negative mg/dL (NEGATIVE) 08/18/16 20:52 Urine Ketones Negative mg/dL (NEGATIVE) 08/18/16 20:52 Urine Blood Large (NEGATIVE) H 08/18/16 20:52 Urine Nitrate Negative (NEGATIVE) 08/18/16 20:52 Urine Bilirubin Negative (NEGATIVE) 08/18/16 20:52 Urine Urobilinogen 0.2 E.U./dL (<1 E.U./dL) 08/18/16 20:52 Ur Leukocyte Esterase Trace Mar/uL (NEGATIVE) H 08/18/16 20:52 Urine RBC 10 - 15 /hpf (0-2) 08/18/16 20:52 Urine WBC 2 - 5 /hpf (0-6) 08/18/16 20:52 Ur Epithelial Cells 3 - 4 /hpf (0-5) 08/18/16 20:52 Urine Bacteria Rare (NEG) 08/18/16 20:52 Hyaline Casts 0 - 2 /hpf 08/18/16 20:52 Blood Type A POSITIVE 08/18/16 21:20 Blood Type Confirm A POSITIVE 08/18/16 21:33 Antibody Screen Negative 08/18/16 21:20 Crossmatch See Detail 08/18/16 21:20 BBK History Checked No verified bt 08/18/16 21:20 - Hospital Course Hospital Course: Patient is a 66 yo female with PMH of HTN, HLD, CVA, vertigo and chronic hematuria whom presented to the ED with generalized weakness, dizziness, and night sweats for the past 3 weeks and was found to have WBC of 111,000, acute anemia with hgb of 6.7, and thrombocytopenia with plt count of 52,000. CMP was normal except elevated glucose. D-dimer was mildly elevated, patient had CTA which r/o PE. CTA revealed 3.7 mm calcified granuloma of right middle lobe, and atelectasis. Patient also had CT head which revealed no acute ischemic changes. Heme/onc was consulted, recommended flow cytometry be sent. Patient was transfused 2 units of type and crossed leuk reduced-irrad prbc as recommended by heme/onc, improving the hgb to 9.6. Patient's platelet continued to trend down to 37, with manual platelet count being 40. Patient's plavix was held. Patient's leukocytosis was also trending down. On hospital day 2, the flow cytometry result revealed no evidence of B or T cell lymphoma, with 0.2% myeloblasts. Dr Bermudez (heme/onc) called and recommended patient doesn't have acute leukemia, and to discharge the patient home. Patient to follow up with Dr Bermudez tomorrow for further work up. In addition, urology was consulted to evaluate the hematuria, however recommended no further work up at this time. - Date & Time of H&P Date of H&P: 08/19/16 Time of H&P: 08:28 Discharge Exam - Head Exam Head Exam: ATRAUMATIC, NORMAL INSPECTION, NORMOCEPHALIC - Eye Exam Eye Exam: Normal appearance. absent: Scleral icterus (pale) - ENT Exam ENT Exam: Mucous Membranes Dry - Neck Exam Neck exam: Normal Inspection - Respiratory Exam Respiratory Exam: Clear to PA & Lateral, NORMAL BREATHING PATTERN, UNREMARKABLE. absent: Prolonged Expiratory Phase, Rales, Rhonchi, Wheezes, Respiratory Distress, Stridor - Cardiovascular Exam Cardiovascular Exam: REGULAR RHYTHM, RRR, +S1, +S2. absent: Systolic Murmur - GI/Abdominal Exam GI & Abdominal Exam: Normal Bowel Sounds, Soft, Unremarkable. absent: Distended , Firm, Guarding, Mass, Organomegaly, Rebound, Rigid, Tenderness - Extremities Exam Extremities exam: normal inspection - Back Exam Back exam: NORMAL INSPECTION - Neurological Exam Neurological exam: Alert, Oriented x3 - Psychiatric Exam Psychiatric exam: Normal Affect, Normal Mood - Skin Skin Exam: Dry, Intact, Normal Color, Warm Discharge Plan - Follow Up Plan Condition: FAIR Disposition: HOME/ ROUTINE Patient education suggested?: Yes Instructions: Chronic Myeloid Leukemia (DC), Anemia (DC), Thrombocytopenia (DC) Additional Instructions: Please follow up with Dr Bermudez tomorrow Hold off plavix untill you see her. Referrals: Jasson Velazquez MD [Primary Care Provider] - Chinyere Bermudez MD [Staff Provider] - <Armando Damon - Last Filed: 09/16/16 08:24> Provider - Provider Date of Admission: 08/18/16 22:13 Attending physician: Armando Damon MD Primary care physician: Jasson Velazquez MD Hospital Course - Lab Results Lab Results: Micro Results 08/19/16 10:25 Blood-Venous Blood Culture - Final NO GROWTH AFTER 5 DAYS 08/19/16 10:25 Blood-Venous Gram Stain - Final TEST NOT PERFORMED 08/19/16 10:25 Blood-Venous Blood Culture - Final NO GROWTH AFTER 5 DAYS 08/19/16 10:25 Blood-Venous Gram Stain - Final 08/19/16 03:20 Urine,Clean Catch Urine Culture - Final No Growth (<1,000 CFU/ML) Most Recent Lab Values WBC 82.7 10^3/ul (4.5-11.0) H* 08/20/16 05:00 RBC 2.46 10^6/uL (3.5-6.1) L 08/20/16 05:00 Hgb 9.6 gm/dL (12.0-16.0) L 08/20/16 05:00 Hct 28.3 % (36.0-48.0) L 08/20/16 05:00 MCV 115.0 fL (80.0-105.0) H 08/20/16 05:00 MCH 39.0 pg (25.0-35.0) H 08/20/16 05:00 MCHC 33.9 g/dl (31.0-37.0) 08/20/16 05:00 RDW 24.8 % (11.5-14.5) H 08/20/16 05:00 Plt Count 37 10^3/uL (120.0-450.0) L* 08/20/16 05:00 Manual Plt Count 40 K/mm3 (120-450) L* 08/20/16 07:00 MPV 9.9 fl (7.0-11.0) 08/20/16 05:00 Gran % TEST NOT PERFORMED 08/18/16 20:00 Lymph % (Auto) TEST NOT PERFORMED 08/18/16 20:00 Kane % (Auto) 0.4 % (1.0-6.0) L 08/18/16 21:15 Eos % (Auto) 0.0 % (1.5-5.0) L 08/18/16 21:15 Baso % (Auto) TEST NOT PERFORMED 08/18/16 20:00 Gran # TEST NOT PERFORMED 08/18/16 20:00 Lymph # TEST NOT PERFORMED 08/18/16 20:00 Kane # 0.4 (0.1-0.6) 08/18/16 21:15 Eos # 0.0 (0.0-0.7) 08/18/16 21:15 Baso # TEST NOT PERFORMED 08/18/16 20:00 ESR 60 mm/hr (0.0-20.0) H 08/18/16 20:00 Retic Count 2.81 % (0.5-1.5) H 08/20/16 07:00 PT 10.7 Seconds (9.9-11.8) 08/18/16 20:00 INR 0.99 (0.93-1.08) 08/18/16 20:00 APTT 20.5 Seconds (23.7-30.8) L 08/18/16 20:00 D-Dimer, Quantitative 1.63 mg/L FEU (0-0.50) H 08/18/16 20:00 Sodium 142 mmol/L (132-148) 08/20/16 06:30 Potassium 4.4 mmol/L (3.6-5.0) 08/20/16 06:30 Chloride 110 mmol/L (98-107) H 08/20/16 06:30 Carbon Dioxide 28 mmol/L (21-33) 08/20/16 06:30 Anion Gap 8 (10-20) L 08/20/16 06:30 BUN 22 mg/dL (7-21) H 08/20/16 06:30 Creatinine 0.8 mg/dL (0.5-1.4) 08/20/16 06:30 Est GFR ( Amer) > 60 08/20/16 06:30 Est GFR (Non-Af Amer) > 60 08/20/16 06:30 POC Glucose (mg/dL) 199 mg/dL (65-110) H 08/18/16 20:05 Random Glucose 116 mg/dL (70-110) H 08/20/16 06:30 Uric Acid 7.4 mg/dL (2.5-6.2) H 08/18/16 20:00 Calcium 8.3 mg/dL (8.4-10.5) L 08/20/16 06:30 Magnesium 2.1 mg/dL (1.7-2.2) 08/18/16 20:00 Iron 197 ug/dL (45-180) H 08/19/16 07:30 TIBC 321 ug/dL (265-497) 08/19/16 07:30 % Saturation 61 % (20-55) H 08/19/16 07:30 Total Bilirubin 0.5 mg/dL (0.2-1.3) 08/20/16 06:30 AST 30 U/L (15-39) 08/20/16 06:30 ALT 34 U/L (7-56) 08/20/16 06:30 Alkaline Phosphatase 37 U/L (38-133) L 08/20/16 06:30 Lactate Dehydrogenase 2832 U/L (333-699) H 08/18/16 20:00 Total Creatine Kinase 30 U/L (35-230) L 08/18/16 20:00 Troponin I < 0.01 ng/mL 08/18/16 20:00 Total Protein 6.8 g/dL (5.8-8.3) 08/20/16 06:30 Albumin 3.8 g/dL (3.0-4.8) 08/20/16 06:30 Globulin 3.0 gm/dL 08/20/16 06:30 Albumin/Globulin Ratio 1.3 (1.1-1.8) 08/20/16 06:30 Lipase 162 U/L (23-300) 08/18/16 20:00 Vitamin B12 > 1000 pg/mL (239-931) H 08/19/16 07:30 Folate 9.4 ng/mL 08/19/16 07:30 TSH 3rd Generation 1.36 mIU/mL (0.46-4.68) 08/19/16 07:30 Urine Color Yellow (YELLOW) 08/18/16 20:52 Urine Appearance Clear (CLEAR) 08/18/16 20:52 Urine pH 6.0 (4.7-8.0) 08/18/16 20:52 Ur Specific Pierce 1.025 (1.005-1.035) 08/18/16 20:52 Urine Protein Negative mg/dL (<30 mg/dL) 08/18/16 20:52 Urine Glucose (UA) Negative mg/dL (NEGATIVE) 08/18/16 20:52 Urine Ketones Negative mg/dL (NEGATIVE) 08/18/16 20:52 Urine Blood Large (NEGATIVE) H 08/18/16 20:52 Urine Nitrate Negative (NEGATIVE) 08/18/16 20:52 Urine Bilirubin Negative (NEGATIVE) 08/18/16 20:52 Urine Urobilinogen 0.2 E.U./dL (<1 E.U./dL) 08/18/16 20:52 Ur Leukocyte Esterase Trace Mar/uL (NEGATIVE) H 08/18/16 20:52 Urine RBC 10 - 15 /hpf (0-2) 08/18/16 20:52 Urine WBC 2 - 5 /hpf (0-6) 08/18/16 20:52 Ur Epithelial Cells 3 - 4 /hpf (0-5) 08/18/16 20:52 Urine Bacteria Rare (NEG) 08/18/16 20:52 Hyaline Casts 0 - 2 /hpf 08/18/16 20:52 Blood Type A POSITIVE 08/18/16 21:20 Blood Type Confirm A POSITIVE 08/18/16 21:33 Antibody Screen Negative 08/18/16 21:20 Crossmatch See Detail 08/18/16 21:20 BBK History Checked No verified bt 08/18/16 21:20 Attending/Attestation - Attestation I have personally seen and examined this patient.: Yes I have fully participated in the care of the patient.: Yes I have reviewed all pertinent clinical information, including history, physical exam and plan: Yes Notes (Text): 09/16/16 08:24 Medical record note made by resident after discussion with my direction and input after patient personally seen and examined by me. I have reviewed the chart and agree that the record accurately reflects my personal history, physical, data review and plan.
== END 2016-08-20 17:29 | disposition home or self-care (01) ==
LOC: ED 19:29 → MERGE 22:13 → ERH 22:13 → INTOOBSV 22:13 → ERH 23:05 → 2RSO 08-19 01:20
PROVIDERS: ADMIT Internal Medicine; ATTEND Internal Medicine
DX: D72.823 Leukemoid reaction (principal); D47.3 Essential (hemorrhagic) thrombocythemia; I10 Essential (primary) hypertension; D64.9 Anemia, unspecified; E78.5 Hyperlipidemia, unspecified; R31.9 Hematuria, unspecified; J98.11 Atelectasis; R35.0 Frequency of micturition; R42 Dizziness and giddiness; G43.909 Migraine, unspecified, not intractable, without status migrainosus; Z85.820 Personal history of malignant melanoma of skin; Z86.73 Personal history of transient ischemic attack (TIA), and cerebral infarction without residual deficits; Z87.891 Personal history of nicotine dependence
CPT/HCPCS: 36415; 36430; 70450; 71010; 71275; 80053; 81001; 82550; 82607; 82746; 82948; 83540; 83550; 83615; 83690; 83735; 84443; 84484; 84550; 85025; 85027; 85044; 85378; 85610; 85651; 85730; 86850; 86900; 86920; 86921; 86922; 87040; 87086; 93005; 99285; G0378; J7040; P9040; Q9967

== ENCOUNTER 2016-09-11 22:34 | Inpatient (IN) | payer OTHER ==
[2016-09-11 22:34] VITALS: BMI 33.7
--- NOTE | 2016-09-11 23:50 | ED PDOC ---
Arrival/HPI - General Historian: Patient <Brandon Merrill A - Last Filed: 09/12/16 02:16> <Khadar Zamorano - Last Filed: 09/12/16 03:51> - General Chief Complaint: Female Genitourinary Time Seen by Provider: 09/11/16 23:13 - History of Present Illness Narrative History of Present Illness (Text): 09/11/16 23:42 66yo female with PMhx of hypertension, CVA, hyperlipdemia, Leukemia, present with complaint of pelvic pain pressure, hematuria, urinary frequency since yesterday. She denies fever, chills, back pain, nausea, vomiting, dizziness, chest pain, SOB, abdominal fullness, change in appetite, any other complaint. 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) - Renal Hx Renal Disorder: No - Endocrine/Metabolic Hx Endocrine Disorders: No - Hematological/Oncological Hx Blood Disorders: Yes Hx Cancer: Yes (melanoma of right breast) - Integumentary Hx Dermatological Disorder: No - Musculoskeletal/Rheumatological Hx Musculoskeletal Disorders: Yes Hx Falls: Yes - Gastrointestinal Hx Gastrointestinal Disorders: Yes Other/Comment: 5 colonic polyps - Genitourinary/Gynecological Hx Genitourinary Disorders: Yes Hx Hematuria: Yes (chronic) - Psychiatric Hx Psychophysiologic Disorder: No Hx Substance Use: No - Surgical History Hx Orthopedic Surgery: Yes (Left knee x2) Other/Comment: cyst removal from both breasts. right brest duct removal <Brandon Merrill A - Last Filed: 09/12/16 02:16> Family/Social History - Physician Review Nursing Documentation Reviewed: Yes Family/Social History: Unknown Family HX Smoking Status: Former Smoker Hx Alcohol Use: No Hx Substance Use: No <Brandon Merrill A - Last Filed: 09/12/16 02:16> Allergies/Home Meds <Brandon Merrill A - Last Filed: 09/12/16 02:16> <Khadar Zamorano - Last Filed: 09/12/16 03:51> Allergies/Adverse Reactions: Allergies nut - unspecified Adverse Reaction (Verified 08/18/16 19:32) ANAPHYLAXIS shellfish derived Adverse Reaction (Verified 08/18/16 19:32) ANGIOEDEMA FRUIT Allergy (Uncoded 08/18/16 19:32) SHORTNESS OF BREATH Home Medications: Home Meds Medication Instructions Recorded Confirmed Levocetirizine Dihydrochloride 1 tab PO DAILY 08/18/16 08/18/16 [Xyzal] Pantoprazole [Protonix EC Tab] 1 tab PO DAILY 08/18/16 08/20/16 Simvastatin [Zocor] 1 tab PO DAILY 08/18/16 08/20/16 Zolpidem [Ambien] 1 tab PO PRN PRN 08/18/16 08/18/16 Review of Systems - Physician Review All systems were reviewed & negative as marked: Yes - Review of Systems Constitutional: Normal Eyes: Normal ENT: Normal Respiratory: Normal Cardiovascular: Normal Gastrointestinal: Abdominal Pain. absent: Constipation, Diarrhea, Nausea, Vomiting, Hematochezia, Hematemesis Genitourinary Female: Frequency, Hematuria. absent: Dysuria Musculoskeletal: Normal Skin: Normal Neurological: Normal Endocrine: Normal Hemo/Lymphatic: Normal Psychiatric: Normal <Brandon Merrill - Last Filed: 09/12/16 02:16> Physical Exam Vital Signs Reviewed: Yes Temperature: Afebrile Blood Pressure: Normal Pulse: Regular Respiratory Rate: Normal Appearance: Positive for: Well-Appearing, Non-Toxic, Comfortable Pain Distress: None Mental Status: Positive for: Alert and Oriented X 3 - Systems Exam Head: Present: Atraumatic, Normocephalic Pupils: Present: PERRL Extroacular Muscles: Present: EOMI Conjunctiva: Present: Normal Mouth: Present: Moist Mucous Membranes Neck: Present: Normal Range of Motion Respiratory/Chest: Present: Clear to Auscultation, Good Air Exchange. No: Respiratory Distress, Accessory Muscle Use Cardiovascular: Present: Regular Rate and Rhythm, Normal S1, S2. No: Murmurs Abdomen: Present: Normal Bowel Sounds. No: Tenderness, Distention, Peritoneal Signs, Rebound, Guarding, McBurney's Point Tender, Rovsing's Sign Present Genitourinary/Pelvic Exam: No: Vaginal Bleeding (No blood noted in vault) Back: Present: Normal Inspection. No: CVA Tenderness Upper Extremity: Present: Normal Inspection. No: Cyanosis, Edema Lower Extremity: Present: Normal Inspection. No: Edema Neurological: Present: GCS=15, CN II-XII Intact, Speech Normal Skin: Present: Warm, Dry, Normal Color. No: Rashes Psychiatric: Present: Alert, Oriented x 3, Normal Insight, Normal Concentration <Brandon Merrill A - Last Filed: 09/12/16 02:16> Medical Decision Making <GarfieldHappiness A - Last Filed: 09/12/16 02:16> <Khadar Zamorano - Last Filed: 09/12/16 03:51> ED Course and Treatment: 09/12/16 02:16 Pt presented with stated history. She was hemodynamically stable. Afebrile. Lab was reviewed and leukocystosis noted. It was compared to her previous lab, last one was last month and pt had significant leukocytosis then, secondary to her leukemia. Chronic leukocytosis was noted from her lab trend. Abdominal/pelvis CT was ordered and pending. Pt was endorsed to Dr. Zamorano to f/u Ct and dispo (Brandon Merrill A) 09/12/16 02:00 Case endorsed to me by SUDHAKAR Merrill, pending CT and final disposition. Pt complaining of pelvic discomfort, yellowish vaginal discharge, and vaginal spotting. 09/12/16 03:15 CT Abdomen and Pelvis shows: Dictated and Authenticated by: Brianna Pierre MD Lower thorax: Lung bases with no findings to suggest acute infection. ABDOMEN: Liver: Hepatic steatosis. Gallbladder and bile ducts: Unremarkable. No calcified stones. No ductal dilation. Pancreas: Unremarkable. No mass. No ductal dilation. Spleen: Spleen measures 8.2 x 8.2 x 6.8 cm. No focal masses. Adrenals: Unremarkable. No mass. Kidneys and ureters: Hypoattenuating findings, multiple, in the bilateral kidneys, many of these are too small to characterize. No hydronephrosis of either kidney. No ureteral stones are seen noting that punctate stones or noncalcified stones may not be well seen on CT. Stomach and bowel: No pathologic bowel dilatation. No abdominal wall hernias containing bowel. No mucosal thickening. Appendix: Note in the absence of oral contrast, high attenuation in the distal appendix is favored to represent appendicoliths versus residua of a previous oral contrast administration, noting that there is no evidence of thickening or adjacent inflammation and no evidence to suggest acute appendicitis. PELVIS: Bladder: Bladder is partly collapsed limiting evaluation. Reproductive: Evidence of pelvic congestion. ABDOMEN and PELVIS: Intraperitoneal space: No free air. No significant fluid collection. Bones/joints: Bony structures with grade 1 anterolisthesis L5-S1,and bilateral pars defects of L5, degenerative changes, no evidence of acute fractures. No dislocation. Soft tissues: See above. Vasculature: Scattered atherosclerotic calcifications. No abdominal aortic aneurysm. Lymph nodes: Unremarkable. No enlarged lymph nodes. Other findings: IMPRESSION: Hepatic steatosis. Other findings as above , noting prominent high attenuation within the appendix which may be multiple appendicoliths versus prior oral contrast however with no findings of acute appendicitis. No hydronephrosis. No biliary ductal dilatation. 09/12/16 03:[address] Falcon, who is aware and agrees with plan. Pt will be admitted to [facility] for leukocytosis and anemia. chairman president and chief executive officer paged. 09/12/16 03:[address] Mandujano, medical affairs director personal counselor, aware of admission. pt aware of and agrees with plan (Khadar Zamorano) - Lab Interpretations Lab Results: 09/12/16 01:00 09/12/16 01:00 Lab Results 09/12/16 01:00: Sodium 141, Potassium 4.1, Chloride 104, Carbon Dioxide 29, Anion Gap 12, BUN 23 H, Creatinine 0.8, Est GFR ( Amer) > 60, Est GFR ( Non-Af Amer) > 60, Random Glucose 109, Calcium 9.3, Total Bilirubin 0.5, AST 34 , ALT 36, Alkaline Phosphatase 52, Total Protein 7.7, Albumin 4.3, Globulin 3.4 , Albumin/Globulin Ratio 1.3 09/12/16 01:00: PT 10.0, INR 0.93, APTT 24.9 09/12/16 01:00: WBC 19.2 H D, RBC 2.12 L, Hgb 8.1 L, Hct 25.0 L, MCV 117.9 H, MCH 38.2 H, MCHC 32.4, RDW 21.7 H, Plt Count 83 L, MPV 9.5, Neutrophils % ( Manual) 64, Band Neutrophils % 6 H, Lymphocytes % (Manual) 12 L, Monocytes % ( Manual) 1, Metamyelocytes % 3, Myelocytes % 14, Platelet Evaluation Low, Polychromasia Slight, Anisocytosis (manual) 1+, Macrocytosis (manual) Slight 09/12/16 01:00: Urine Color Yellow, Urine Appearance Sl cloudy, Urine pH 6.0, Ur Specific [place] 1.020, Urine Protein Negative, Urine Glucose (UA) Negative, Urine Ketones Negative, Urine Blood Large H, Urine Nitrate Negative, Urine Bilirubin Negative, Urine Urobilinogen 0.2, Ur Leukocyte Esterase Negative, Urine RBC 5 - 10, Urine WBC 1 - 3, Ur Epithelial Cells 0 - 2 - RAD Interpretation Radiology Orders: 09/12/16 01:42 ABD & PELVIS IV CONTRAST ONLY [CT] Stat - Medication Orders Current Medication Orders: Sodium Chloride (Sodium Chloride 0.9%) 1,000 mls @ 250 mls/hr IV .Q4H ONE Stop: 09/12/16 06:22 Last Admin: 09/12/16 03:01 Dose: 250 mls/hr Sodium Chloride (Sodium Chloride 0.9%) 1,000 mls @ 1,000 mls/hr IV .Q1H STA Stop: 09/12/16 04:14 Discontinued Medications Piperacillin Sod/Tazobactam Sod (Zosyn 4.5 Gm In Ns 100ml) 4.5 gm in 100 mls @ 200 mls/hr IVPB STAT STA PRN Reason: Protocol Stop: 09/12/16 03:44 Iohexol (Omnipaque 300 100 Ml) Confirm Administered Dose 100 ml IJ .STK-MED ONE Stop: 09/12/16 02:19 Morphine Sulfate (Morphine) 6 mg IVP STAT STA Stop: 09/12/16 03:16 Tramadol HCl (Ultram) 50 mg PO STAT STA Stop: 09/12/16 02:24 Last Admin: 09/12/16 03:01 Dose: 50 mg Disposition/Present on Arrival - Present on Arrival History of DVT/PE: No History of Uncontrolled Diabetes: No Urinary Catheter: No History of Decub. Ulcer: No History Surgical Site Infection Following: None <Diru,Happiness A - Last Filed: 09/12/16 02:16> - Present on Arrival Any Indicators Present on Arrival: No - Disposition Have Diagnosis and Disposition been Completed?: Yes Disposition Time: 03:50 Patient Plan: Admission <Khadar Zamorano - Last Filed: 09/12/16 03:51> - Disposition Diagnosis: Elevated WBCs, Anemia Disposition: HOSPITALIZED Condition: FAIR
[2016-09-12 01:34] LABS: MEAN CELL VOLUME 117.9 fL (80.0-105.0); MEAN CORPUSCULAR HEMOGLOBIN 38.2 pg (25.0-35.0); MEAN CORPUSCULAR HGB CONC 32.4 g/dl (31.0-37.0); MEAN PLATELET VOLUME 9.5 fl (7.0-11.0); PLATELET COUNT 83 10^3/uL (120.0-450.0); RED CELL DISTRIBUTION WIDTH 21.7 % (11.5-14.5); URINE BILIRUBIN NEGATIVE (NEGATIVE); URINE BLOOD LARGE (NEGATIVE); URINE GLUCOSE (UA) NEGATIVE (NEGATIVE); URINE KETONE NEGATIVE (NEGATIVE); URINE LEUKOCYTE ESTERASE NEGATIVE Leu/uL (NEGATIVE); URINE PROTEIN NEGATIVE mg/dL (<30 mg/dL); URINE UROBILINOGEN 0.2 E.U./dL (<1 E.U./dL); WHITE BLOOD COUNT 19.2 10^3/ul (4.5-11.0)
[2016-09-12 01:37] LABS: URINE APPEARANCE SL CLOUDY (CLEAR); URINE COLOR YELLOW (YELLOW)
[2016-09-12 01:39] LABS: ADD MANUAL DIFF? YES; ALB/GLOB RATIO 1.3 (1.1-1.8); ALKALINE PHOSPHATASE 52 U/L (38-133); ALT/SGPT 36 U/L (7-56); AST/SGOT 34 U/L (15-39); BILIRUBIN,TOTAL 0.5 mg/dL (0.2-1.3); BLOOD UREA NITROGEN 23 mg/dL (7-21); CALCIUM 9.3 mg/dL (8.4-10.5); CARBON DIOXIDE 29 mmol/L (21-33); CHLORIDE 104 mmol/L (95-110); GFR AFRICAN-AMERICAN > 60; GLUCOSE,RANDOM 109 mg/dL (70-110); POTASSIUM 4.1 mmol/L (3.6-5.0); SODIUM 141 mmol/L (132-148); TOTAL PROTEIN 7.7 g/dL (5.8-8.3)
[2016-09-12 01:41] LABS: INR 0.93 (0.93-1.08); PARTIAL THROMBOPLASTIN TIME 24.9 Seconds (23.7-30.8)
[2016-09-12 01:50] LABS: URINE EPITHELIAL CELLS 0 - 2 /hpf (0-5)
[2016-09-12 02:17] LABS: BAND 6 % (0-2); METAMYELOCYTE 3 %; MYELOCYTE 14 %; NEUTROPHIL 64 % (50.0-70.0)
[2016-09-12 02:18] LABS: ANISOCYTOSIS 1+; PLATELET ESTIMATE LOW (NORMAL); POLYCHROMASIA SLIGHT
[2016-09-12] MEDS ORDERED: Iohexol 300 100 ML IJ ONE (02:18)
[2016-09-12] MEDS ORDERED: Sodium Chloride 0.9% 1,000 ML IV ONE (02:23)
--- NOTE | 2016-09-12 02:53 | CT ---
EXAM: CT Abdomen and Pelvis With Intravenous Contrast CLINICAL HISTORY: 66 years old, female; Pain; Abdominal pain; Acute TECHNIQUE: Axial computed tomography images of the abdomen and pelvis with intravenous contrast. This CT exam was performed using one or more of the following dose reduction techniques: automated exposure control, adjustment of the mA and/or kV according to patient size, and/or use of iterative reconstruction technique. Coronal and sagittal reformatted images were created and reviewed. CONTRAST: 100 mL of omni 350 administered intravenously. EXAM DATE/TIME: Exam ordered 09/12/2016 1:42 AM COMPARISON: No relevant prior studies available. FINDINGS: Lower thorax: Lung bases with no findings to suggest acute infection. ABDOMEN: Liver: Hepatic steatosis. Gallbladder and bile ducts: Unremarkable. No calcified stones. No ductal dilation. Pancreas: Unremarkable. No mass. No ductal dilation. Spleen: Spleen measures 8.2 x 8.2 x 6.8 cm. No focal masses. Adrenals: Unremarkable. No mass. Kidneys and ureters: Hypoattenuating findings, multiple, in the bilateral kidneys, many of these are too small to characterize. No hydronephrosis of either kidney. No ureteral stones are seen noting that punctate stones or noncalcified stones may not be well seen on CT. Stomach and bowel: No pathologic bowel dilatation. No abdominal wall hernias containing bowel. No mucosal thickening. Appendix: Note in the absence of oral contrast, high attenuation in the distal appendix is favored to represent appendicoliths versus residua of a previous oral contrast administration, noting that there is no evidence of thickening or adjacent inflammation and no evidence to suggest acute appendicitis. PELVIS: Bladder: Bladder is partly collapsed limiting evaluation. Reproductive: Evidence of pelvic congestion. ABDOMEN and PELVIS: Intraperitoneal space: No free air. No significant fluid collection. Bones/joints: Bony structures with grade 1 anterolisthesis L5-S1,and bilateral pars defects of L5, degenerative changes, no evidence of acute fractures. No dislocation. Soft tissues: See above. Vasculature: Scattered atherosclerotic calcifications. No abdominal aortic aneurysm. Lymph nodes: Unremarkable. No enlarged lymph nodes. Other findings: IMPRESSION: Hepatic steatosis. Other findings as above , noting prominent high attenuation within the appendix which may be multiple appendicoliths versus prior oral contrast however with no findings of acute appendicitis. No hydronephrosis. No biliary ductal dilatation.
[2016-09-12] MEDS ORDERED: Morphine 4 mg/ml ISec IVP STA (03:15)
[2016-09-12] MEDS ORDERED: Piperacill/Tazo 4.5gm in NS 4.5 GM/100 ML BAG IVPB STA (03:15)
[2016-09-12] MEDS ORDERED: Sodium Chloride 0.9% 1,000 ML IV STA (03:15)
--- NOTE | 2016-09-12 04:34 | CP.PCM.HP ---
History of Present Illness - History of Present Illness History of Present Illness: cc: pelvic pain HPI: Patient is a 66yo female with past medical history of hypertension, hyperlipidemia, CVA, vertigo and chronic hematuria that presented to ED c/o pelvic pain. Patient reported that she first noticed the pain yesterday which she described as a pressure-like sensation. Her pelvic pain was associated with vaginal spotting and increased urinary frequency. She reported a history of chronic hematuria however stated that on this occasion her bleeding felt more like a period/vaginal in origin. She stated that she never had anything similar in the past and she was last sexually active in 1999. She denied history of sexually transmitted infections. Denied fever, chills, cough, back pain, nausea , vomiting, dizziness, chest pain, SOB, palpitations, focal weakness, numbness, tingling. 12 point ROS as per HPI above, otherwise negative PMH: HTN, HLD, CVA, vertigo, hematuria, melanoma s/p resection PSH: Left knee surgery, breast cyst removal bilateral, right breast duct removal Allergies: Nut, shellfish Social hx: former smoker (quit 2009), denies alcohol use, denies illicit drug use Family Hx: history of cancer in multiple siblings Present on Admission - Present on Admission Any Indicators Present on Admission: No Past Patient History - Past Social History Smoking Status: Former Smoker - CARDIAC Hx Cardiac Disorders: Yes Hx Hypertension: Yes - PULMONARY Hx Respiratory Disorders: No - NEUROLOGICAL Hx Neurological Disorder: Yes HX Cerebrovascular Accident: Yes (deficit: occasional numbness of bilateral hands and toes) Hx Migraine: Yes Other/Comment: Short term memory loss - HEENT Hx HEENT Problems: Yes 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) - RENAL Hx Chronic Kidney Disease: No - ENDOCRINE/METABOLIC Hx Endocrine Disorders: No - HEMATOLOGICAL/ONCOLOGICAL Hx Blood Disorders: Yes Hx Cancer: Yes (melanoma of right breast) - INTEGUMENTARY Hx Dermatological Problems: No - MUSCULOSKELETAL/RHEUMATOLOGICAL Hx Musculoskeletal Disorders: Yes Hx Falls: Yes - GASTROINTESTINAL Hx Gastrointestinal Disorders: Yes Other/Comment: 5 colonic polyps - GENITOURINARY/GYNECOLOGICAL Hx Genitourinary Disorders: Yes Hx Hematuria: Yes (chronic) - PSYCHIATRIC Hx Psychophysiologic Disorder: No Hx Substance Use: No - SURGICAL HISTORY Hx Orthopedic Surgery: Yes (Left knee x2) Other/Comment: cyst removal from both breasts. right brest duct removal Meds Allergies/Adverse Reactions: Allergies Allergy/AdvReac Type Severity Reaction Status Date / Time nut - unspecified AdvReac ANAPHYLAXIS Verified 08/18/16 19:32 shellfish derived AdvReac ANGIOEDEMA Verified 08/18/16 19:32 FRUIT Allergy SHORTNESS Uncoded 08/18/16 19:32 OF BREATH Physical Exam - Constitutional Appears: Non-toxic, No Acute Distress - Head Exam Head Exam: ATRAUMATIC, NORMAL INSPECTION, NORMOCEPHALIC - Eye Exam Eye Exam: EOMI, PERRL - ENT Exam ENT Exam: Mucous Membranes Moist - Neck Exam Neck exam: Positive for: Normal Inspection - Respiratory Exam Respiratory Exam: Clear to Auscultation Bilateral. absent: Rales, Rhonchi, Wheezes - Cardiovascular Exam Cardiovascular Exam: RRR, +S1, +S2. absent: Gallop, JVD, Rubs - GI/Abdominal Exam GI & Abdominal Exam: Normal Bowel Sounds, Soft. absent: Distended, Firm, Guarding, Rigid, Tenderness - Extremities Exam Extremities exam: Positive for: normal inspection, pedal pulses present. Negative for: pedal edema, tenderness - Neurological Exam Neurological exam: Alert, CN II-XII Intact, Oriented x3 - Psychiatric Exam Psychiatric exam: Normal Affect, Normal Mood - Skin Skin Exam: Dry, Intact, Normal Color, Warm Results - Vital Signs Recent Vital Signs: Last Vital Signs Temp 98.4 F 09/11/16 22:52 Pulse 104 H 09/11/16 22:52 Resp 18 09/11/16 22:52 BP 142/84 09/11/16 22:52 Pulse Ox 98 09/11/16 22:52 - Labs Result Diagrams: 09/12/16 01:00 09/12/16 01:00 Labs: Laboratory Results - last 24 hr 09/12/16 09/12/16 09/12/16 01:00 01:00 01:00 WBC 19.2 H D RBC 2.12 L Hgb 8.1 L Hct 25.0 L MCV 117.9 H MCH 38.2 H MCHC 32.4 RDW 21.7 H Plt Count 83 L MPV 9.5 Neutrophils % (Manual) 64 Band Neutrophils % 6 H Lymphocytes % (Manual) 12 L Monocytes % (Manual) 1 Metamyelocytes % 3 Myelocytes % 14 Platelet Evaluation Low Polychromasia Slight Anisocytosis (manual) 1+ Macrocytosis (manual) Slight PT 10.0 INR 0.93 APTT 24.9 Sodium Potassium Chloride Carbon Dioxide Anion Gap BUN Creatinine Est GFR ( Amer) Est GFR (Non-Af Amer) Random Glucose Calcium Total Bilirubin AST ALT Alkaline Phosphatase Total Protein Albumin Globulin Albumin/Globulin Ratio Urine Color Yellow Urine Appearance Sl cloudy Urine pH 6.0 Ur Specific [place] 1.020 Urine Protein Negative Urine Glucose (UA) Negative Urine Ketones Negative Urine Blood Large H Urine Nitrate Negative Urine Bilirubin Negative Urine Urobilinogen 0.2 Ur Leukocyte Esterase Negative Urine RBC 5 - 10 Urine WBC 1 - 3 Ur Epithelial Cells 0 - 2 09/12/16 01:00 WBC RBC Hgb Hct MCV MCH MCHC RDW Plt Count MPV Neutrophils % (Manual) Band Neutrophils % Lymphocytes % (Manual) Monocytes % (Manual) Metamyelocytes % Myelocytes % Platelet Evaluation Polychromasia Anisocytosis (manual) Macrocytosis (manual) PT INR APTT Sodium 141 Potassium 4.1 Chloride 104 Carbon Dioxide 29 Anion Gap 12 BUN 23 H Creatinine 0.8 Est GFR ( Amer) > 60 Est GFR (Non-Af Amer) > 60 Random Glucose 109 Calcium 9.3 Total Bilirubin 0.5 AST 34 ALT 36 Alkaline Phosphatase 52 Total Protein 7.7 Albumin 4.3 Globulin 3.4 Albumin/Globulin Ratio 1.3 Urine Color Urine Appearance Urine pH Ur Specific [place] Urine Protein Urine Glucose (UA) Urine Ketones Urine Blood Urine Nitrate Urine Bilirubin Urine Urobilinogen Ur Leukocyte Esterase Urine RBC Urine WBC Ur Epithelial Cells Assessment & Plan - Assessment and Plan (Free Text) Plan: 66yo female with past medical history of hypertension, hyperlipidemia, CVA, vertigo and chronic hematuria that presented to ED c/o pelvic pain 1. Pelvic pain -afebrile, leukocytosis however patient has history of leukemia -CT abd/pelvis revealed evidence of pelvic congestion, hepatic steatosis; see full report -Transvaginal US pending -Blood/urine cultures pending -Chlamydia/gonorrhea testing pending -Patient received zosyn in the ED -IVF hydration -[employer] evaluation pending 2. Macrocytic anemia -Hgb 8.1 -No overt signs of acute blood loss at this time -Will transfuse as necessary -Pending: Iron, ferritin, TIBC, reticulocyte count, B12, folate -Heme/Onc consulted - Dr. Bermudez 3. Hypertension -Continue home norvasc 5mg po qd 4. Hyperlipidemia -Continue lipitor 10mg po qd 5. GI/DVT prophylaxis -Protonix/SCD's Case discussed with attending, Dr. Falcon - Date & Time Date: 09/12/16 Time: 05:12
[2016-09-12 07:32] LABS: BASO # 0.18 K/mm3 (0.0-2.0); BASO % 1.1 % (0.0-3.0); EOS % 0.1 % (1.5-5.0); GRAN # 14.42 (1.4-6.5); LYMPH # 1.9 (1.2-3.4); LYMPH % 11.5 % (22.0-35.0); MEAN CELL VOLUME 116.2 fL (80.0-105.0); MEAN CORPUSCULAR HEMOGLOBIN 37.7 pg (25.0-35.0); MEAN CORPUSCULAR HGB CONC 32.5 g/dl (31.0-37.0); MEAN PLATELET VOLUME 8.3 fl (7.0-11.0); MONO # 0.1 (0.1-0.6); MONO % 0.3 % (1.0-6.0); PLATELET COUNT 68 10^3/uL (120.0-450.0); RED CELL DISTRIBUTION WIDTH 21.6 % (11.5-14.5); WHITE BLOOD COUNT 16.6 10^3/ul (4.5-11.0)
[2016-09-12 07:33] LABS: RETIC% 4.09 % (0.5-1.5)
[2016-09-12 07:45] LABS: HEMATOCRIT 23.7 % (36.0-48.0)
[2016-09-12 07:46] LABS: ADD MANUAL DIFF? NO
[2016-09-12 07:51] LABS: IRON 76 ug/dL (45-180)
[2016-09-12] MEDS ORDERED: Morphine 2 mg/ml ISec IVP PRN (11:18)
[2016-09-12 14:35] LABS: FOLATE > 20.0 ng/mL
--- NOTE | 2016-09-12 21:14 | CON ---
DATE: 09/12/2016 The patient is in room 377, bed 1. CHIEF COMPLAINT: Elevated WBC count times several days. HISTORY OF PRESENT ILLNESS: This is a 66-year-old [place] female with a past medical history si gnificant for hypertension. The patient had a cerebrovascular accident approximately 10 years ago an d a history of vertigo and a history of hyperlipidemia and a history of leukemia unspecified. Seen b rayo Bermudez as an outpatient, had a bone marrow biopsy and was recommended to go for a second opinio n, which she has not done so presents now with pelvic pain. The patient has had nausea, but no vomit ing. She had vaginal bleeding. She has had easy bruisability. She has had night sweats. She has h ad 10-15 pound weight loss and occasional chills. She denies any cough or chest pain and pelvic pain is dull in nature without radiation. PAST MEDICAL HISTORY: Is significant for breast cysts, hypertension, cerebrovascular accident 10 yea rs ago, hyperlipidemia, history of leukemia of some kind but she says it is unspecified. She is also blind in the right eye after her cerebrovascular accident on 10 years ago. PAST SURGICAL HISTORY: Is significant for a bone marrow biopsy. The patient also had left knee surg yandel and breast reduction. FAMILY HISTORY: Is significant for multiple siblings with cancers, she does not know what kind. ALLERGIES: SHE IS ALLERGIC TO SHELLFISH, FRUIT AND NUTS. SOCIAL HISTORY: She has not had any recent travel. She is not sexually active currently. MEDICATIONS AT HOME: Include Zocor, Ambien, Protonix and Levocetirizine. PHYSICAL EXAMINATION: GENERAL: She is in bed, appearing stable; however, chronically ill. VITAL SIGNS: Temperature of 98, pulse of 104 on admission, down to 81; respiratory rate of 18, it wa s up to 20 earlier; blood pressure is 120/78. HEENT: Unremarkable. NECK: Supple. LUNGS: Have decreased breath sounds. HEART: Normal S1, S2. ABDOMEN: Soft, nontender, no rebound, no guarding, no masses. There is mild tenderness in the pelvi c area. SKIN: She does have ecchymotic lesions on her arms. LABORATORY EXAMINATION: Reveals a white count of 19,000 with a hemoglobin of 8 with MCV of 117 with an RDW of 21 with 83,000 platelets, 64% neutrophils, 6% bands,12% lymphocytes, 3% metamyelocytes and 14% myelocytes with a SED rate of 86 and a retic count of 4.0. Coagulation is with an INR of 0.93 wi th a PTT of 24 and PT of 10. Chemistries reveal a BUN of 23 and creatinine is 0.8 with a total iron binding capacity of 262, saturation of 29%, ferritin level of 666. C-reactive protein is greater charlee n 15 with a folate level greater than 20 and a vitamin B12 of 832. Urinalysis reveals large blood an d 1-3 WBCs. The patient had a CAT scan of the abdomen and pelvis, which showed hepatic steatosis, no enlarged lymph nodes. Unremarkable gallbladder, unremarkable lymph nodes. 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 1. Systemic inflammatory response syndrome. Must rule out myelodysplastic syndrome versus other mye loproliferative neoplasms and chronic myelogenous leukemia. Workup for B12 and folate has been initi ated and will need a bone marrow biopsy. I doubt infectious etiology. Will keep the Zosyn for now p ending blood cultures and urine cultures. Will order a JAK2 mutation and studies, Manlius chrom osome 922 and a BCR-ABL 1 gene PCR and recommend a hematology evaluation for a repeat bone marrow bio psy. Will continue the Zosyn pending davenport culture results and workup for B12 and folate must be compl eted prior to making the diagnosis of a myelodysplastic syndrome and/or myeloproliferative neoplasms. López Delacruz MD cc: 350 TT: 09/12/2016 21:13:36 Confirmation # [id number] Dictation # [id number] pamela
[2016-09-13 07:21] LABS: ADD MANUAL DIFF? NO
[2016-09-13 07:30] LABS: BASO # 0.09 K/mm3 (0.0-2.0); BASO % 0.6 % (0.0-3.0); EOS % 0.1 % (1.5-5.0); GRAN % 87.9 % (50.0-68.0); LYMPH # 1.6 (1.2-3.4); MEAN CELL VOLUME 117.3 fL (80.0-105.0); MEAN CORPUSCULAR HEMOGLOBIN 37.7 pg (25.0-35.0); MEAN CORPUSCULAR HGB CONC 32.1 g/dl (31.0-37.0); MEAN PLATELET VOLUME 9.4 fl (7.0-11.0); MONO # 0.1 (0.1-0.6); MONO % 0.4 % (1.0-6.0); PLATELET COUNT 72 10^3/uL (120.0-450.0); RED CELL DISTRIBUTION WIDTH 21.7 % (11.5-14.5); WHITE BLOOD COUNT 14.2 10^3/ul (4.5-11.0)
[2016-09-13 07:38] LABS: HEMATOCRIT 22.4 % (36.0-48.0)
[2016-09-13 07:43] LABS: ALB/GLOB RATIO 1.1 (1.1-1.8); ALKALINE PHOSPHATASE 46 U/L (38-133); ALT/SGPT 28 U/L (7-56); AST/SGOT 29 U/L (15-39); BILIRUBIN,TOTAL 0.6 mg/dL (0.2-1.3); BLOOD UREA NITROGEN 14 mg/dL (7-21); CALCIUM 8.5 mg/dL (8.4-10.5); CARBON DIOXIDE 30 mmol/L (21-33); CHLORIDE 103 mmol/L (98-107); GFR AFRICAN-AMERICAN > 60; GLUCOSE,RANDOM 101 mg/dL (70-110); POTASSIUM 3.9 mmol/L (3.6-5.0); SODIUM 140 mmol/L (132-148)
--- NOTE | 2016-09-13 10:42 | CON ---
DATE: 09/12/2016 REASON FOR CONSULTATION: Anemia, lower abdominal pain. HISTORY OF PRESENT ILLNESS: This 66-year-old patient still undergoing evaluation for probable leukem ia, presented with lower abdominal pain. Got progressively worse for 3 days. She still has some int ermittent discomfort. Over the period of 3 days, it has gotten worse. She also noticed spotting of the blood with the urine. She is not sure whether this coming from the vagina or from the urine itse lf, mixed with urine, blood from the bladder itself. Her stool has been brown. The patient is await ing ____ hematology for ____ hematological problem. 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 She had a colonoscopy done in the past and she was found to douglas ve polyps ____. Colonoscopy revealed about 5 polyps and she said 4 polyps were precancerous polyps. Last colonoscopy was okay. The patient is advised colonoscopy in 2-3 years' time. She is due to douglas ve it this year. ____ having an endoscopy done many years ago. No change in bowel habits otherwise. No vomiting. OTHER PAST MEDICAL HISTORY: Significant as above, history of hypertension, dyslipidemia, status post CVA ____, history of melanoma status post resection many years ago. PAST SURGICAL HISTORY: Significant for breast cyst removal bilaterally. Left knee surgery. ALLERGIES: NUTS AND SHELLFISH. SOCIAL HISTORY: Ex-smoker, stopped 2009. Denies alcohol use. FAMILY HISTORY: Positive for multiple cancers in the family. REVIEW OF SYSTEMS: Positive as above. Other 12-point systems review is negative. PHYSICAL EXAMINATION: GENERAL: The patient is lying on the bed, not in acute distress. VITAL SIGNS: Temperature afebrile. Pulse 81, respirations 18, blood pressure 120/78. HEENT: Atraumatic, anicteric. NECK: Supple. HEART: S1, S2 heard. LUNGS: Bilateral air entry present. ABDOMEN: Minimal tenderness present in the suprapubic area. EXTREMITIES: No edema, no cyanosis. NEUROLOGIC: Alert, oriented. Moves all the extremities. LABORATORY DATA: Hemoglobin 7.7, ____ 8.1, hematocrit 23.7, WBC 16.6, platelets 68. Chemistry shows ____ saturation is 29%, normal. C-reactive protein is elevated greater than 15. B12 and folate wer e normal. IMPRESSION: This 66-year-old patient with a probable leukemia, still undergoing evaluation by the matologist. Status post ____ bone marrow done. Presented with lower abdominal discomfort and spotti ng of the urine. The patient is anemic. Iron studies reviewed and ____ iron deficiency pattern. B1 2 and folate also is normal. The patient does have leukocytosis and thrombocytopenia. More than lik serge, cause for her anemia is probably related to her underlying hematological problem plus. Also has some hematuria, ____ bleeding. The patient did have a pelvic sonogram done, follow up on that. Wou ld benefit from the gynecologic evaluation also. ____ followup of the stool, urine culture. We will ____. RECOMMENDATIONS: 1. Follow up with ____. 2. Urine culture. 3. Would recommend followup of the cultures. 4. The patient does have a bone marrow problem, leukemia or myelodysplasia and a definitive diagnosi s not still made. Awaiting for the ____. Would recommend hematological evaluation and follow up. 5. ____ with PPI. 6. Followup of the hemoglobin and hematocrit. We will empirically start the patient on PPI. Leonel Ramirez MD cc: [id number] TT: 09/13/2016 08:00:57 Confirmation # [id number] Dictation # [id number] sn
--- NOTE | 2016-09-13 10:46 | CP.PCM.CON ---
History of Present Illness - History of Present Illness History of Present Illness: [facility]. Patient reports that she has been postmenopausal spotting last several months. Patient denies any weakness fatigue and palpitations. 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 right brest duct removal Meds Allergies/Adverse Reactions: Allergies Allergy/AdvReac Type Severity Reaction Status Date / Time nut - unspecified AdvReac ANAPHYLAXIS Verified 08/18/16 19:32 shellfish derived AdvReac ANGIOEDEMA Verified 08/18/16 19:32 FRUIT Allergy SHORTNESS Uncoded 08/18/16 19:32 OF BREATH - Medications Medications: Current Medications Amlodipine Besylate (Norvasc) 5 mg PO DAILY [facility] Last Admin: 09/13/16 09:07 Dose: 5 mg Atorvastatin Calcium (Lipitor) 10 mg PO DIN [facility] Last Admin: 09/12/16 17:08 Dose: 10 mg Docusate Sodium (Colace) 100 mg PO BID [facility] Last Admin: 09/13/16 09:11 Dose: 100 mg Morphine Sulfate (Morphine) 2 mg IVP Q4H PRN PRN Reason: Pain, moderate (4-7) Ondansetron HCl (Zofran Inj) 4 mg IVP Q4H PRN PRN Reason: Nausea/Vomiting Pantoprazole Sodium (Protonix Inj) 40 mg IVP DAILY [facility] Last Admin: 09/13/16 09:11 Dose: 40 mg Zolpidem Tartrate (Ambien) 5 mg PO HS PRN; Protocol PRN Reason: Insomnia Last Admin: 09/12/16 23:31 Dose: 5 mg Results - Vital Signs Recent Vital Signs: Last Vital Signs Temp 99.7 F H 09/13/16 06:00 Pulse 106 H 09/13/16 09:07 Resp 18 09/13/16 06:00 BP 123/68 09/13/16 09:07 Pulse Ox 92 L 09/13/16 06:00 - Labs Result Diagrams: 09/13/16 07:00 09/13/16 07:00 Labs: Laboratory Results - last 24 hr 09/12/16 09/12/16 09/12/16 07:28 07:28 11:14 WBC RBC Hgb Hct MCV MCH MCHC RDW Plt Count MPV Gran % Lymph % (Auto) [place] % (Auto) Eos % (Auto) Baso % (Auto) Gran # Lymph # [place] # Eos # Baso # Sodium Potassium Chloride Carbon Dioxide Anion Gap BUN Creatinine Est GFR ( Amer) Est GFR (Non-Af Amer) Random Glucose Calcium Ferritin 666.0 Total Bilirubin AST ALT Alkaline Phosphatase C-React Prot High Sens > 15.00 H Total Protein Albumin Globulin Albumin/Globulin Ratio Vitamin B12 832 Folate > 20.0 Blood Type A POSITIVE Antibody Screen Negative BBK History Checked Patient has bt 09/13/16 09/13/16 07:00 07:00 WBC 14.2 H RBC 1.91 L Hgb 7.2 L Hct 22.4 L MCV 117.3 H MCH 37.7 H MCHC 32.1 RDW 21.7 H Plt Count 72 L MPV 9.4 Gran % 87.9 H Lymph % (Auto) 11.0 L [place] % (Auto) 0.4 L Eos % (Auto) 0.1 L Baso % (Auto) 0.6 Gran # 12.50 H Lymph # 1.6 [place] # 0.1 Eos # 0.0 Baso # 0.09 Sodium 140 Potassium 3.9 Chloride 103 Carbon Dioxide 30 Anion Gap 11 BUN 14 Creatinine 0.7 Est GFR ( Amer) > 60 Est GFR (Non-Af Amer) > 60 Random Glucose 101 Calcium 8.5 Ferritin Total Bilirubin 0.6 AST 29 ALT 28 Alkaline Phosphatase 46 C-React Prot High Sens Total Protein 7.0 Albumin 3.6 Globulin 3.4 Albumin/Globulin Ratio 1.1 Vitamin B12 Folate Blood Type Antibody Screen BBK History Checked Assessment & Plan - Assessment and Plan (Free Text) Assessment: 66-year-old female history of postmenopausal bleeding history of chronic hematuria transvaginal sonogram results pending Endometrial stripe less than 5 mm the patient could be observed follow-up sonogram Endometrial stripethickened recommend biopsy. The patient was advised to follow up in the office Upon discharge. We discussed causes of postmenopausal bleeding, the patient was given the opportuni All questions answered and the patiento plan of care
--- NOTE | 2016-09-13 13:18 | US ---
HISTORY: Leg pain and swelling. Evaluate for DVT PHYSICIAN(S): Huy Hylton MD. TECHNIQUE: Duplex sonography and color-flow Doppler with graded compression were used to evaluate the deep venous systems of both lower extremities. FINDINGS: The visualized deep venous systems of both lower extremities are sonographically normal and compressible. Normal wave forms and augmentation are seen. There is no sonographic evidence for deep venous thrombosis in the visualized segments of both lower extremities. IMPRESSION: No sonographic evidence for deep venous thrombosis in the visualized segments of both lower extremities.
--- NOTE | 2016-09-13 13:38 | PN ---
DATE: 09/13/2016 The patient is seen in bed, no acute distress, nontoxic, no fevers; however, chronically ill. PHYSICAL EXAMINATION: VITAL SIGNS: Temperature is 99.7, heart rate of 106, blood pressure is 123/60, respiratory rate of 1 8. She is saturating at 92%. HEENT: Unremarkable. NECK: Supple. LUNGS: Have decreased breath sounds. HEART: Normal S1, S2. ABDOMEN: Soft, nontender. LABORATORY EXAMINATION: Reveals a white count of 14,200, hemoglobin of 7, platelets of 72. The dea ent's differential on the 14,000 is 87% granulocytosis, 11% lymphocytosis. There is also 14% myelocy montserrat. Coagulation is noted to be normal. Chemistries are noted. The patient does have an elevated C -reactive protein. Vitamin B12 is 832. Folate is 20. Urinalysis is noted. Microbiology reveals th e blood cultures and urine cultures are negative. Dr. Head's consultation is reviewed and Dr. Ramirez's consultation is reviewed. ASSESSMENT AND PLAN: A 66-year-old female with history of hypertension, cerebrovascular accident 10 years ago with a partial right eye blindness, hyperlipidemia, unspecified diagnosis of leukemia, had a bone marrow biopsy as outpatient and was supposed to see a second opinion on hematology on Wednesday. Now presents with easy bruisability, anemia, tachycardia, leukocytosis and a megaloblastic anemia in a patient with B symptoms, weight loss and night sweats and fevers. Systemic inflammatory response syndrome, must rule out myelodysplastic versus myeloproliferative neop lasm such as chronic myelocytic leukemia. B12 level and folate level have been ordered and appear to be intact and will check on the JAK2 mutation Hodgeman chromosome translocation of 922 and a BCR -ABL gene PCR and waiting for hematology evaluation. Currently on Zosyn. All cultures are negative. We will check on a homocysteine level and a methylmalonic acid level and the patient also scheduled for Dopplers of the lower extremity and transvaginal ultrasound. Waiting still for hematology evalu ation. López Delacruz MD cc: [id number] TT: 09/13/2016 13:37:35 Confirmation # [id number] Dictation # [id number] en
--- NOTE | 2016-09-13 14:28 | PN ---
DATE: 09/13/2016 The patient is a 66-year-old female seen and examined with family member at the bedside currently. N o chest pain, no shortness of breath. Complaining of hematuria as well as pressure around the suprap ubic area. No nausea, no vomiting at this point. The patient was brought in, started on IV antibiot ics as well as seen by the [employer] DRAWER doctor, as well as ID doctor. PHYSICAL EXAMINATION: VITAL SIGNS: Blood pressure is currently 138/68, pulse rate of 106, temperature is 99.7, O2 saturati on is 92 on room air. HEENT: Normocephalic, atraumatic. [place] conjunctivae, nonicteric sclerae. NECK: No JVD, no thyromegaly. CARDIOVASCULAR: Regular rate and rhythm. S1, S2 is appreciated. No S3 noted. LUNGS: Bilateral air entry is positive. No wheezes or rhonchi. ABDOMEN: Nondistended. Positive tenderness around the suprapubic area, as well as CVA tenderness. LABORATORY DATA: WBCs have downtrended from 19.2 down to 14.2. Chemistry: Hemoglobin is now 7.2, w hich we will follow very closely. Hematocrit is 22.4, platelets of 72. Chemistry within normal limi ts. LFTs also within normal limits. As far as urine, there is positive blood in the urine. Blood c ultures are negative. She did have an ultrasound that was done of the calf for the pain, which was n egative for DVT. ASSESSMENT: 1. Hypertension. 2. Leukocytosis. 3. Anemia. 4. Cerebrovascular accident. 5. Vertigo. PLAN: At this time, we will call in for a consult with hematology. We will follow up her CBC very c losely. The patient has been in the middle of a workup with Dr. Delacruz as well as Dr. Ramirez, and patient is currently on IV antibiotics. Hu Falcon MD cc: [id number] TT: 09/13/2016 14:28:03 Confirmation # [id number] Dictation # [id number] baljeet
[2016-09-14 07:44] LABS: ADD MANUAL DIFF? NO
[2016-09-14 07:46] LABS: BASO # 0.07 K/mm3 (0.0-2.0); BASO % 0.5 % (0.0-3.0); EOS % 0.1 % (1.5-5.0); GRAN # 13.55 (1.4-6.5); GRAN % 87.3 % (50.0-68.0); LYMPH # 1.8 (1.2-3.4); LYMPH % 11.7 % (22.0-35.0); MEAN CELL VOLUME 117.5 fL (80.0-105.0); MEAN CORPUSCULAR HEMOGLOBIN 37.6 pg (25.0-35.0); MEAN PLATELET VOLUME 9.1 fl (7.0-11.0); MONO # 0.1 (0.1-0.6); MONO % 0.4 % (1.0-6.0); PLATELET COUNT 70 10^3/uL (120.0-450.0); RED CELL DISTRIBUTION WIDTH 21.7 % (11.5-14.5); WHITE BLOOD COUNT 15.5 10^3/ul (4.5-11.0)
[2016-09-14 08:04] LABS: ALB/GLOB RATIO 1.1 (1.1-1.8); ALKALINE PHOSPHATASE 48 U/L (38-133); ALT/SGPT 29 U/L (7-56); AST/SGOT 27 U/L (15-39); BILIRUBIN,TOTAL 0.5 mg/dL (0.2-1.3); BLOOD UREA NITROGEN 15 mg/dL (7-21); CALCIUM 8.5 mg/dL (8.4-10.5); CARBON DIOXIDE 29 mmol/L (21-33); CHLORIDE 105 mmol/L (98-107); GFR AFRICAN-AMERICAN > 60; GLUCOSE,RANDOM 113 mg/dL (70-110); POTASSIUM 4.1 mmol/L (3.6-5.0); SODIUM 142 mmol/L (132-148)
[2016-09-14 08:39] LABS: HEMATOCRIT 22.2 % (36.0-48.0)
--- NOTE | 2016-09-14 14:49 | PN ---
DATE: 09/14/2016 Seen and examined at the bedside earlier today. She has not had any further episodes of anemia, but she does complain of abdominal discomfort. Tolerated the breakfast. No reports of any overt GI blee d. Reported having 2 bowel movements. No diarrhea. She went for an extremity ultrasound and that w as negative for any DVTs of the lower legs. She also went for a transvaginal ultrasound. That resul t is still pending. No reports of any further bleeding from her vaginal area or bloody urine. VITAL SIGNS: Temperature is 99.3, blood pressure 149/77, pulse 97, respirations 20, 98% on room air. LABORATORIES: WBC is 15.5, H and H is 7.1 and 22.2, platelets is 70. Sodium 142, K 4.1, BUN 15, cre atinine 0.7. LFTs are within normal limits. PHYSICAL EXAMINATION: HEENT: Sclera is anicteric. NECK: Supple. CARDIAC: S1, S2. LUNG SOUNDS: With decreased breath sounds at the bases with positive air entry, no rales or wheeze. ABDOMEN: With bowel sounds, soft. Positive tenderness in suprapubic area. No rebound, guarding, or organomegaly. EXTREMITIES: No edema. NEUROLOGIC: Awake, alert, and oriented. ASSESSMENT: This is a 66-year-old female with a history of hypertension, came in with complaints of lower abdominal pain. She is also complaining of spotting in the urine or possible vaginal area. Th e patient is currently undergoing workup for rule out any chronic lymphocytic leukemia. She does hav e a history of melanoma in the past with resection, history of cerebrovascular accident, colon polyps . PLAN: We will continue PPI. The patient went for a transvaginal ultrasound. That is pending. She was seen by the REPORTS ANALYSIS MANAGER yesterday and was recommended to have outpatient biopsy done. The patient states she was supposed to go for a second opinion today, but she is here in the hospital. We will continu e to monitor H and H. She is on stool softeners. Continue GI prophylaxis, Protonix, and is currentl y on heart healthy diet. The patient was seen and case discussed with Dr. Ramirez. Latoya Durham PROCUREMENT COORDINATOR-C cc: [id number] TT: 09/14/2016 14:49:15 Confirmation # [id number] Dictation # [id number] en
--- NOTE | 2016-09-14 15:41 | US ---
HISTORY: eval for pelvic congestion syndrome vs PID COMPARISON: None available. TECHNIQUE: Transvaginal pelvic ultrasound FINDINGS: UTERUS: Measures 5.9 x 2.1 x 4.0 cm. Anteverted. ENDOMETRIUM: Measures approximately 3 mm in diameter. Trace fluid within the endometrium. CERVIX: No cervical abnormality identified. RIGHT OVARY: Measures 1.6 x 1.5 x 1.9 cm. Blood flow is demonstrated. LEFT OVARY: Measures 1.7 x 1.5 x 1.5 cm. Blood flow is demonstrated. FREE FLUID: No significant free fluid noted. OTHER FINDINGS: None. IMPRESSION: Trace fluid within the endometrium.
--- NOTE | 2016-09-14 16:59 | PN ---
DATE: 09/14/2016 The patient is in bed in no acute distress, nontoxic. She is feeling better. PHYSICAL EXAMINATION: VITAL SIGNS: Temperature is 98, blood pressure is 120/60, respiratory rate of 16. HEENT: Unremarkable. NECK: Supple. LUNGS: Have decreased breath sounds. HEART: Normal S1, S2. ABDOMEN: Soft, nontender. LABORATORY DATA: Reveals the patient had a white count of 15,500, hemoglobin of 7 and platelets of 7 0. The patient has 87% granulocytosis, 11% lymphocytosis and she is at 4.09. Coagulation is n oted. Chemistries reveal the BUN of 15, creatinine of 0.7 and C-reactive protein is greater than 15. Urinalysis is noted. Microbiology reveals the blood cultures are negative. Urine cultures are neg ative. Review of orders reveals the workup is in progress. ASSESSMENT AND PLAN: A 66-year-old female with a history of hypertension, history of cerebrovascular accident 10 years ago with partial right eye blindness, hyperlipidemia, unspecified diagnosis of antonia kemia, had a bone marrow biopsy as an outpatient with followup for a second opinion in hematology tod ay, complaining of easy bruisability, anemia, tachycardia, leukocytosis, weight loss and fevers and B symptoms with megaloblastic anemia with systemic inflammatory response syndrome, must rule out myelo dysplastic versus myeloproliferative neoplasia such as chronic myelocytic leukemia. Workup is in pro cess and awaiting still from hematology and currently patient is now off of antibiotics, no evidence of infection at this time. She is at risk for developing nosocomial infections. López Delacruz MD cc: [id number] TT: 09/14/2016 16:58:25 Confirmation # [id number] Dictation # [id number] mn
[2016-09-14] MEDS ORDERED: DIPHENHYDRAMINE 25 MG PO STA (18:01)
--- NOTE | 2016-09-14 19:11 | CP.PCM.PN ---
Subjective - Date & Time of Evaluation Date of Evaluation: 09/14/16 Time of Evaluation: 07:05 - Subjective Subjective: Internal Medicine Progress Note for Dr. Damon/Ezekiel service Patient seen and examined at bedside. Today is hospital day 3. No acute events overnight. Denies chest pain, shortness of breath, diarrhea, new emesis ; admits to some persisting stomach pain, nausea, and leg cramps. Objective - Vital Signs/Intake and Output Vital Signs (last 24 hours): Temp Pulse Resp BP Pulse Ox 98.8 F 87 18 134/61 95 09/14/16 18:15 09/14/16 18:15 09/14/16 18:15 09/14/16 18:15 09/14/16 16:00 Intake and Output: 09/14/16 09/15/16 18:59 06:59 Intake Total 1445 Output Total 600 Balance 845 - Medications Medications: Current Medications Amlodipine Besylate (Norvasc) 5 mg PO DAILY [facility] Last Admin: 09/14/16 09:20 Dose: 5 mg Atorvastatin Calcium (Lipitor) 10 mg PO DIN [facility] Last Admin: 09/14/16 17:08 Dose: 10 mg Docusate Sodium (Colace) 100 mg PO BID [facility] Last Admin: 09/14/16 17:08 Dose: 100 mg Morphine Sulfate (Morphine) 2 mg IVP Q4H PRN PRN Reason: Pain, moderate (4-7) Ondansetron HCl (Zofran Inj) 4 mg IVP Q4H PRN PRN Reason: Nausea/Vomiting Pantoprazole Sodium (Protonix Inj) 40 mg IVP DAILY [facility] Last Admin: 09/14/16 09:22 Dose: 40 mg Zolpidem Tartrate (Ambien) 5 mg PO HS PRN; Protocol PRN Reason: Insomnia Last Admin: 09/13/16 23:04 Dose: 5 mg - Labs Labs: 09/14/16 07:20 09/14/16 07:20 PT 10.0 Seconds (9.9-11.8) 09/12/16 01:00 INR 0.93 (0.93-1.08) 09/12/16 01:00 APTT 24.9 Seconds (23.7-30.8) 09/12/16 01:00 Assessment and Plan - Assessment and Plan (Free Text) Assessment: 66 yo F with PMH of HTN, HLD,, CVA, vertigo, and chronic hematuria that presented to ED c/o pelvic pain and post-menopausal bleeding. Plan: 1) Pelvic pain -leukocytosis increased from 14.2 to 15.5 (hx leukemia), remains afebrile -CT abd/pelvis revealed evidence of pelvic congestion, hepatic steatosis; see full report -Transvaginal US: No sonographic evidence for deep venous thrombosis in the visualized segments of both lower extremities. -Blood/urine cultures negative at 48 hours -Chlamydia/gonorrhea testing pending -Patient received zosyn in the ED, off abx right now as per ID -Tolerating PO well, Pain improved; no further doses of PRN Morphine or Zofran requested by patient -Continue Protonix, and continue to monitor H&H as per GI -OB-Bark Tanner (Dr. Head) consulted, appreciate all recs; patient will need an endometrial biopsy, to be obtained as outpt f/u -ID (Dr Delacruz) consulted, appreciate all recs -GI (Dr. Garcia) consulted, appreciate all recs 2) Macrocytic anemia -Hgb 7.1 (down from 8.1 on admission), transfusing 2 units as per Heme-onc -repeat H&H to be obtained 4 hours after 2nd unit pRBCs transfused, f/u -Iron panel notable for low normal TIBC and elevated Ferritin, B12 & Folate wnl , Retic count elevated, ESR and CRP elevated -Heme/Onc (Dr. Bermudez) consulted, appreciate all recs 3) Leukocytosis and thrombocytopenia -pt previously seen by Heme-onc during last admission, leukocytosis > 100k at that time -worked up by heme-onc for suspected leukemia -patient was to follow up with outpt heme-onc for second opinion, possible bone- biopsy, but has not yet been able to do so -Heme-onc consulted during this admission as well, appreciate all recs 4) Hypertension -Continue home norvasc 5mg po qd 5) Hyperlipidemia -Continue lipitor 10mg po qd Dispo: Med/Surg, pending transfusion 2 units pRBCs and f/u H&H, pending likely d /c to home tomorrow FEN: Heart-healthy diet Access: Peripheral IV Consults: GI, Heme-onc, OB-Bark Tanner, ID Ppx: Protonix for GI, SCDs for DVT (avoid AC in setting of bleeding) Patient seen, reviewed, and discussed with attending, Dr. Falcon
--- NOTE | 2016-09-14 22:27 | CP.PCM.CON ---
History of Present Illness - History of Present Illness History of Present Illness: Hematology Consult Referred by Dr. Damon for h/o myelodysplastic/myeloproliferative syndrome HPI-Ms Gonzales is 66 y/o F who is known to Dr. Bermudez. She has h/o HTN, CVA, vertigo, melanoma who was recently found to have abnormal blood counts. She underwent bone marrow biopsy as outpatient that showed mixed picture of myelodysplatic/ myeloproliferative syndrome. BCR-ABL was negative. She was referred to [facility] for second opinion. She was admitted now with pelvic pain and vaginal spotting. US pelvis was performed and she was recommended outpatient endometrial biopsy. Her pain is better now and denies any more vaginal spotting. She feels tired. Her Hb had dropped to 7.1 today. She is receiving 2 units PRBC. Denies fever, chills. Social and Family history reviewed. Review of Systems - Review of Systems All systems: reviewed and no additional remarkable complaints except Review of Systems: as in HPI. 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 right brest duct removal Meds Allergies/Adverse Reactions: Allergies Allergy/AdvReac Type Severity Reaction Status Date / Time nut - unspecified AdvReac ANAPHYLAXIS Verified 08/18/16 19:32 shellfish derived AdvReac ANGIOEDEMA Verified 08/18/16 19:32 FRUIT Allergy SHORTNESS Uncoded 08/18/16 19:32 OF BREATH - Medications Medications: Current Medications Amlodipine Besylate (Norvasc) 5 mg PO DAILY [facility] Last Admin: 09/14/16 09:20 Dose: 5 mg Atorvastatin Calcium (Lipitor) 10 mg PO DIN [facility] Last Admin: 09/14/16 17:08 Dose: 10 mg Docusate Sodium (Colace) 100 mg PO BID [facility] Last Admin: 09/14/16 17:08 Dose: 100 mg Morphine Sulfate (Morphine) 2 mg IVP Q4H PRN PRN Reason: Pain, moderate (4-7) Ondansetron HCl (Zofran Inj) 4 mg IVP Q4H PRN PRN Reason: Nausea/Vomiting Pantoprazole Sodium (Protonix Inj) 40 mg IVP DAILY [facility] Last Admin: 09/14/16 09:22 Dose: 40 mg Zolpidem Tartrate (Ambien) 5 mg PO HS PRN; Protocol PRN Reason: Insomnia Last Admin: 09/13/16 23:04 Dose: 5 mg Physical Exam - Head Exam Head Exam: ATRAUMATIC, NORMAL INSPECTION - Eye Exam Eye Exam: EOMI, PERRL - ENT Exam ENT Exam: Mucous Membranes Moist - Neck Exam Neck exam: Negative for: Lymphadenopathy - Respiratory Exam Respiratory Exam: Clear to Auscultation Bilateral - Cardiovascular Exam Cardiovascular Exam: REGULAR RHYTHM - GI/Abdominal Exam GI & Abdominal Exam: Normal Bowel Sounds, Soft. absent: Organomegaly, Tenderness - Extremities Exam Extremities exam: Negative for: pedal edema - Neurological Exam Neurological exam: Alert, Oriented x3 Results - Vital Signs Recent Vital Signs: Last Vital Signs Temp 99 F 09/14/16 20:29 Pulse 82 09/14/16 20:29 Resp 18 09/14/16 20:29 BP 123/67 09/14/16 20:29 Pulse Ox 95 09/14/16 16:00 - Labs Result Diagrams: 09/14/16 07:20 09/14/16 07:20 Labs: Laboratory Results - last 24 hr 09/12/16 09/14/16 09/14/16 11:14 07:20 07:20 WBC 15.5 H RBC 1.89 L Hgb 7.1 L Hct 22.2 L MCV 117.5 H MCH 37.6 H MCHC 32.0 RDW 21.7 H Plt Count 70 L MPV 9.1 Gran % 87.3 H Lymph % (Auto) 11.7 L [place] % (Auto) 0.4 L Eos % (Auto) 0.1 L Baso % (Auto) 0.5 Gran # 13.55 H Lymph # 1.8 [place] # 0.1 Eos # 0.0 Baso # 0.07 Sodium 142 Potassium 4.1 Chloride 105 Carbon Dioxide 29 Anion Gap 12 BUN 15 Creatinine 0.7 Est GFR ( Amer) > 60 Est GFR (Non-Af Amer) > 60 Random Glucose 113 H Calcium 8.5 Total Bilirubin 0.5 AST 27 ALT 29 Alkaline Phosphatase 48 Total Protein 7.0 Albumin 3.6 Globulin 3.3 Albumin/Globulin Ratio 1.1 Blood Type A POSITIVE Antibody Screen Negative Crossmatch See Detail Crossmatch IS Only See Detail BBK History Checked Patient has bt Assessment & Plan - Assessment and Plan (Free Text) Assessment: 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 Hb dropped to 7.1, likely secondary to recent blood loss. Agree with 2 units PRBC transfusion. She should continue to follow up with director hardware at [place] to discuss further treatment options. She could be considered for hypomethylating agents. Continue to monitor blood counts daily. F/U for endometrial biopsy. Thank you for the consult Vlad Hastings - Date & Time Date: 09/14/16 Time: 17:
[2016-09-15 01:29] LABS: HEMATOCRIT 28.6 % (36.0-48.0); MEAN CELL VOLUME 105.1 fL (80.0-105.0); MEAN CORPUSCULAR HEMOGLOBIN 35.3 pg (25.0-35.0); MEAN CORPUSCULAR HGB CONC 33.6 g/dl (31.0-37.0); MEAN PLATELET VOLUME 8.9 fl (7.0-11.0); RED CELL DISTRIBUTION WIDTH 26.4 % (11.5-14.5); WHITE BLOOD COUNT 17.8 10^3/ul (4.5-11.0)
--- NOTE | 2016-09-15 03:03 | PN ---
DATE: 09/14/2016 ADDENDUM: This is an addendum to the GI progress report dictated by Latoya Durham APN. SUBJECTIVE: The patient was receiving blood transfusion. The patient had significant improvement of the lower abdominal pain. PHYSICAL EXAMINATION: ABDOMEN: Soft. There is mild tenderness on deep palpation in the lower abdomen. There is no reboun d or guarding. The patient has abdomen Soft. There is no mass palpable. There is mild tenderness p resent on deep palpation in the lower abdomen. LABS: Reviewed. IMPRESSION: The patient is requested followup and follow up of hematology followup. Wou nd not contemplate any colonoscopy or endoscopic evaluation now. PLAN: The patient needs to have further hematology workup and evaluation. Considering endosco pic evaluation. Thank you very much for allowing us to participate in the care of the patient. Leonel Ramirez MD cc: [id number] TT: 09/15/2016 03:02:29 Confirmation # [id number] Dictation # [id number] mn
[2016-09-15 06:01] LABS: HOMOCYSTEINE 7.2 umol/L (<10.4)
[2016-09-15 08:24] LABS: ADD MANUAL DIFF? NO
[2016-09-15 08:27] LABS: BASO # 0.15 K/mm3 (0.0-2.0); BASO % 0.8 % (0.0-3.0); EOS % 0.1 % (1.5-5.0); GRAN # 16.26 (1.4-6.5); GRAN % 89.4 % (50.0-68.0); HEMATOCRIT 28.3 % (36.0-48.0); LYMPH # 1.7 (1.2-3.4); LYMPH % 9.4 % (22.0-35.0); MEAN CELL VOLUME 104.4 fL (80.0-105.0); MEAN CORPUSCULAR HEMOGLOBIN 35.1 pg (25.0-35.0); MEAN CORPUSCULAR HGB CONC 33.6 g/dl (31.0-37.0); MONO # 0.1 (0.1-0.6); MONO % 0.3 % (1.0-6.0); PLATELET COUNT 62 10^3/uL (120.0-450.0); RED CELL DISTRIBUTION WIDTH 26.2 % (11.5-14.5); WHITE BLOOD COUNT 18.2 10^3/ul (4.5-11.0)
[2016-09-15 08:37] LABS: ALB/GLOB RATIO 1.1 (1.1-1.8); ALKALINE PHOSPHATASE 50 U/L (38-133); ALT/SGPT 31 U/L (7-56); AST/SGOT 29 U/L (15-39); BILIRUBIN,TOTAL 0.7 mg/dL (0.2-1.3); BLOOD UREA NITROGEN 13 mg/dL (7-21); CALCIUM 8.9 mg/dL (8.4-10.5); CARBON DIOXIDE 29 mmol/L (21-33); CHLORIDE 105 mmol/L (98-107); GFR AFRICAN-AMERICAN > 60; GLUCOSE,RANDOM 109 mg/dL (70-110); MAGNESIUM 2.1 mg/dL (1.7-2.2); PHOSPHOROUS 3.1 mg/dL (2.5-4.5); SODIUM 140 mmol/L (132-148); TOTAL PROTEIN 7.6 g/dL (5.8-8.3)
--- NOTE | 2016-09-15 14:56 | CP.PCM.DIS ---
<Michael Palacio - Last Filed: 09/15/16 15:07> Provider - Provider Date of Admission: 09/12/16 03:51 Attending physician: Armando Damon MD Primary care physician: Dr. Velazquez Consults: Heme/onc: Aidan [employer] Servicer: Sonido ID: [id number] GI: James Time Spent in preparation of Discharge (in minutes): 25 Diagnosis - Discharge Diagnosis (1) Blood loss anemia Status: Acute Priority: High Comment: requiring transfusion of 2 units pRBCs (2) Pelvic pain in female Status: Suspected Priority: High (3) Post-menopausal bleeding Status: Acute Priority: Medium (4) Pelvic congestion syndrome Status: Suspected Priority: Medium (5) Leukemia Status: Suspected Priority: High Hospital Course - Lab Results Lab Results: Micro Results 09/12/16 07:28 Blood-Venous Blood Culture - Preliminary NO GROWTH AFTER 3 DAYS 09/12/16 07:28 Blood-Venous Blood Culture - Preliminary NO GROWTH AFTER 3 DAYS 09/12/16 06:23 Urine Urine Culture - Final No Growth (<1,000 CFU/ML) Most Recent Lab Values WBC 18.2 10^3/ul (4.5-11.0) H 09/15/16 08:00 RBC 2.71 10^6/uL (3.5-6.1) L 09/15/16 08:00 Hgb 9.5 gm/dL (12.0-16.0) L 09/15/16 08:00 Hct 28.3 % (36.0-48.0) L 09/15/16 08:00 MCV 104.4 fL (80.0-105.0) 09/15/16 08:00 MCH 35.1 pg (25.0-35.0) H 09/15/16 08:00 MCHC 33.6 g/dl (31.0-37.0) 09/15/16 08:00 RDW 26.2 % (11.5-14.5) H 09/15/16 08:00 Plt Count 62 10^3/uL (120.0-450.0) L 09/15/16 08:00 MPV 9.0 fl (7.0-11.0) 09/15/16 08:00 Gran % 89.4 % (50.0-68.0) H 09/15/16 08:00 Lymph % (Auto) 9.4 % (22.0-35.0) L 09/15/16 08:00 Karnes % (Auto) 0.3 % (1.0-6.0) L 09/15/16 08:00 Eos % (Auto) 0.1 % (1.5-5.0) L 09/15/16 08:00 Baso % (Auto) 0.8 % (0.0-3.0) 09/15/16 08:00 Gran # 16.26 (1.4-6.5) H 09/15/16 08:00 Lymph # 1.7 (1.2-3.4) 09/15/16 08:00 Karnes # 0.1 (0.1-0.6) 09/15/16 08:00 Eos # 0.0 (0.0-0.7) 09/15/16 08:00 Baso # 0.15 K/mm3 (0.0-2.0) 09/15/16 08:00 Neutrophils % (Manual) 64 % (50.0-70.0) 09/12/16 01:00 Band Neutrophils % 6 % (0-2) H 09/12/16 01:00 Lymphocytes % (Manual) 12 % (22.0-35.0) L 09/12/16 01:00 Monocytes % (Manual) 1 % (1.0-6.0) 09/12/16 01:00 Metamyelocytes % 3 % 09/12/16 01:00 Myelocytes % 14 % 09/12/16 01:00 Platelet Evaluation Low (NORMAL) 09/12/16 01:00 Polychromasia Slight 09/12/16 01:00 Anisocytosis (manual) 1+ 09/12/16 01:00 Macrocytosis (manual) Slight 09/12/16 01:00 ESR 86 mm/hr (0.0-20.0) H 09/12/16 07:28 Retic Count 4.09 % (0.5-1.5) H 09/12/16 07:28 PT 10.0 Seconds (9.9-11.8) 09/12/16 01:00 INR 0.93 (0.93-1.08) 09/12/16 01:00 APTT 24.9 Seconds (23.7-30.8) 09/12/16 01:00 Sodium 140 mmol/L (132-148) 09/15/16 08:00 Potassium 4.0 mmol/L (3.6-5.0) 09/15/16 08:00 Chloride 105 mmol/L (98-107) 09/15/16 08:00 Carbon Dioxide 29 mmol/L (21-33) 09/15/16 08:00 Anion Gap 10 (10-20) 09/15/16 08:00 BUN 13 mg/dL (7-21) 09/15/16 08:00 Creatinine 0.7 mg/dL (0.5-1.4) 09/15/16 08:00 Est GFR ( Amer) > 60 09/15/16 08:00 Est GFR (Non-Af Amer) > 60 09/15/16 08:00 Random Glucose 109 mg/dL (70-110) 09/15/16 08:00 Calcium 8.9 mg/dL (8.4-10.5) 09/15/16 08:00 Phosphorus 3.1 mg/dL (2.5-4.5) 09/15/16 08:00 Magnesium 2.1 mg/dL (1.7-2.2) 09/15/16 08:00 Iron 76 ug/dL (45-180) 09/12/16 07:28 TIBC 262 ug/dL (265-497) L 09/12/16 07:28 % Saturation 29 % (20-55) 09/12/16 07:28 Ferritin 666.0 ng/mL 09/12/16 07:28 Total Bilirubin 0.7 mg/dL (0.2-1.3) 09/15/16 08:00 AST 29 U/L (15-39) 09/15/16 08:00 ALT 31 U/L (7-56) 09/15/16 08:00 Alkaline Phosphatase 50 U/L (38-133) 09/15/16 08:00 C-React Prot High Sens > 15.00 mg/L (1.00-3.00) H 09/12/16 07:28 Total Protein 7.6 g/dL (5.8-8.3) 09/15/16 08:00 Albumin 3.9 g/dL (3.0-4.8) 09/15/16 08:00 Globulin 3.7 gm/dL 09/15/16 08:00 Albumin/Globulin Ratio 1.1 (1.1-1.8) 09/15/16 08:00 Vitamin B12 832 pg/mL (239-931) 09/12/16 07:28 Folate > 20.0 ng/mL 09/12/16 07:28 Homocysteine 7.2 umol/L ( <10.4) 09/13/16 07:00 Urine Color Yellow (YELLOW) 09/12/16 01:00 Urine Appearance Sl cloudy (CLEAR) 09/12/16 01:00 Urine pH 6.0 (4.7-8.0) 09/12/16 01:00 Ur Specific Adams 1.020 (1.005-1.035) 09/12/16 01:00 Urine Protein Negative mg/dL (<30 mg/dL) 09/12/16 01:00 Urine Glucose (UA) Negative mg/dL (NEGATIVE) 09/12/16 01:00 Urine Ketones Negative mg/dL (NEGATIVE) 09/12/16 01:00 Urine Blood Large (NEGATIVE) H 09/12/16 01:00 Urine Nitrate Negative (NEGATIVE) 09/12/16 01:00 Urine Bilirubin Negative (NEGATIVE) 09/12/16 01:00 Urine Urobilinogen 0.2 E.U./dL (<1 E.U./dL) 09/12/16 01:00 Ur Leukocyte Esterase Negative Mar/uL (NEGATIVE) 09/12/16 01:00 Urine RBC 5 - 10 /hpf (0-2) 09/12/16 01:00 Urine WBC 1 - 3 /hpf (0-6) 09/12/16 01:00 Ur Epithelial Cells 0 - 2 /hpf (0-5) 09/12/16 01:00 Serum Immunofixation See note 09/12/16 07:28 Blood Type A POSITIVE 09/12/16 11:14 Antibody Screen Negative 09/12/16 11:14 Crossmatch See Detail 09/12/16 11:14 Crossmatch IS Only See Detail 09/12/16 11:14 BBK History Checked Patient has bt 09/12/16 11:14 - Hospital Course Hospital Course: This is a 66 yo F with PMH of HTN, HLD, CVA, vertigo, and chronic hematuria who presented to ED with complaints of pelvic pain and post- menopausal bleeding. She was worked up for possible pelvic congestion syndrome and causes of post-menopausal bleeding. While here, patient was seen by Heme- onc, OB-[employer] Servicer, ID, and GI. As per Heme-onc, patient needs further followup and a second opinion, was previously referred to a specialist at [place] but unable to make appointment due to this admission, will follow up after discharge. Also, due to worsening anemia, likely 2/2 blood loss, 2 units pRBCs were transfused, with appropriate rise in Hgb, which has remained stable this AM. As per ID, unlikely infectious process, antibiotics stopped and no need for abx on discharge. As per OB[employer], transvaginal US notes enlarged endometrial stripe, recs endometrial biopsy; patient to f/u as outpatient. She was instructed to follow up with her PMD (Dr. Velazquez) within 1 week, and with Heme-onc and OB-[employer] in 1-2 weeks. Patient was also instructed to restart home meds. She expressed understanding and agreement with these instructions. All questions answered to the patient's satisfaction. Patient was then discharged. Patient seen, reviewed, and discussed with attending, Dr. Damon. Discharge Exam - Head Exam Head Exam: ATRAUMATIC, NORMAL INSPECTION, NORMOCEPHALIC - Eye Exam Eye Exam: EOMI, Normal appearance. absent: Conjunctival injection, Scleral icterus Pupil Exam: absent: Irregular, Unequal - ENT Exam ENT Exam: Mucous Membranes Moist - Neck Exam Neck exam: Full Rom - Respiratory Exam Respiratory Exam: Clear to PA & Lateral, NORMAL BREATHING PATTERN, UNREMARKABLE. absent: Accessory Muscle Use, Chest Wall Tenderness, Decreased Breath Sounds, Rales, Rhonchi, Wheezes, Respiratory Distress - Cardiovascular Exam Cardiovascular Exam: REGULAR RHYTHM, RRR, +S1, +S2. absent: Bradycardia, Tachycardia, Irregular Rhythm, +S4 - GI/Abdominal Exam GI & Abdominal Exam: Normal Bowel Sounds, Soft, Unremarkable. absent: Distended , Firm, Rigid, Tenderness - Extremities Exam Extremities exam: normal capillary refill, normal inspection, pedal pulses present - Back Exam Back exam: absent: CVA tenderness (L), CVA tenderness (R) - Neurological Exam Neurological exam: Alert, Oriented x3 - Psychiatric Exam Psychiatric exam: Normal Affect, Normal Mood - Skin Skin Exam: Dry, Intact, Normal Color, Warm Discharge Plan - Follow Up Plan Condition: FAIR Disposition: HOME/ ROUTINE Instructions: Endometriosis (DC), Iron Deficiency Anemia (DC), Blood Transfusion (DC), Endometritis (DC), Blood Transfusion Reactions (DC), Endometrial Biopsy (DC), Anemia (DC) Additional Instructions: Please follow up with your PMD within 1 week of discharge. Please follow up with the Hemotologist/Oncologist as [facility] or at [facility] as instructed. If you develop worsening bleeding, persistent lightheadedness or dizziness, or feel like you may pass out, please return to the hospital immediately. Referrals: Yashira Head MD [Staff Provider] - Jasson Velazquez MD [Family Provider] - <Armando Damon - Last Filed: 09/16/16 08:24> Provider - Provider Date of Admission: 09/12/16 03:51 Attending physician: Armando Damon MD Hospital Course - Lab Results Lab Results: Micro Results 09/12/16 07:28 Blood-Venous Blood Culture - Preliminary NO GROWTH AFTER 4 DAYS 09/12/16 07:28 Blood-Venous Blood Culture - Preliminary NO GROWTH AFTER 4 DAYS 09/12/16 06:23 Urine Urine Culture - Final No Growth (<1,000 CFU/ML) Most Recent Lab Values WBC 18.2 10^3/ul (4.5-11.0) H 09/15/16 08:00 RBC 2.71 10^6/uL (3.5-6.1) L 09/15/16 08:00 Hgb 9.5 gm/dL (12.0-16.0) L 09/15/16 08:00 Hct 28.3 % (36.0-48.0) L 09/15/16 08:00 MCV 104.4 fL (80.0-105.0) 09/15/16 08:00 MCH 35.1 pg (25.0-35.0) H 09/15/16 08:00 MCHC 33.6 g/dl (31.0-37.0) 09/15/16 08:00 RDW 26.2 % (11.5-14.5) H 09/15/16 08:00 Plt Count 62 10^3/uL (120.0-450.0) L 09/15/16 08:00 MPV 9.0 fl (7.0-11.0) 09/15/16 08:00 Gran % 89.4 % (50.0-68.0) H 09/15/16 08:00 Lymph % (Auto) 9.4 % (22.0-35.0) L 09/15/16 08:00 Karnes % (Auto) 0.3 % (1.0-6.0) L 09/15/16 08:00 Eos % (Auto) 0.1 % (1.5-5.0) L 09/15/16 08:00 Baso % (Auto) 0.8 % (0.0-3.0) 09/15/16 08:00 Gran # 16.26 (1.4-6.5) H 09/15/16 08:00 Lymph # 1.7 (1.2-3.4) 09/15/16 08:00 Karnes # 0.1 (0.1-0.6) 09/15/16 08:00 Eos # 0.0 (0.0-0.7) 09/15/16 08:00 Baso # 0.15 K/mm3 (0.0-2.0) 09/15/16 08:00 Neutrophils % (Manual) 64 % (50.0-70.0) 09/12/16 01:00 Band Neutrophils % 6 % (0-2) H 09/12/16 01:00 Lymphocytes % (Manual) 12 % (22.0-35.0) L 09/12/16 01:00 Monocytes % (Manual) 1 % (1.0-6.0) 09/12/16 01:00 Metamyelocytes % 3 % 09/12/16 01:00 Myelocytes % 14 % 09/12/16 01:00 Platelet Evaluation Low (NORMAL) 09/12/16 01:00 Polychromasia Slight 09/12/16 01:00 Anisocytosis (manual) 1+ 09/12/16 01:00 Macrocytosis (manual) Slight 09/12/16 01:00 ESR 86 mm/hr (0.0-20.0) H 09/12/16 07:28 Retic Count 4.09 % (0.5-1.5) H 09/12/16 07:28 PT 10.0 Seconds (9.9-11.8) 09/12/16 01:00 INR 0.93 (0.93-1.08) 09/12/16 01:00 APTT 24.9 Seconds (23.7-30.8) 09/12/16 01:00 Sodium 140 mmol/L (132-148) 09/15/16 08:00 Potassium 4.0 mmol/L (3.6-5.0) 09/15/16 08:00 Chloride 105 mmol/L (98-107) 09/15/16 08:00 Carbon Dioxide 29 mmol/L (21-33) 09/15/16 08:00 Anion Gap 10 (10-20) 09/15/16 08:00 BUN 13 mg/dL (7-21) 09/15/16 08:00 Creatinine 0.7 mg/dL (0.5-1.4) 09/15/16 08:00 Est GFR ( Amer) > 60 09/15/16 08:00 Est GFR (Non-Af Amer) > 60 09/15/16 08:00 Random Glucose 109 mg/dL (70-110) 09/15/16 08:00 Calcium 8.9 mg/dL (8.4-10.5) 09/15/16 08:00 Phosphorus 3.1 mg/dL (2.5-4.5) 09/15/16 08:00 Magnesium 2.1 mg/dL (1.7-2.2) 09/15/16 08:00 Iron 76 ug/dL (45-180) 09/12/16 07:28 TIBC 262 ug/dL (265-497) L 09/12/16 07:28 % Saturation 29 % (20-55) 09/12/16 07:28 Ferritin 666.0 ng/mL 09/12/16 07:28 Total Bilirubin 0.7 mg/dL (0.2-1.3) 09/15/16 08:00 AST 29 U/L (15-39) 09/15/16 08:00 ALT 31 U/L (7-56) 09/15/16 08:00 Alkaline Phosphatase 50 U/L (38-133) 09/15/16 08:00 C-React Prot High Sens > 15.00 mg/L (1.00-3.00) H 09/12/16 07:28 Total Protein 7.6 g/dL (5.8-8.3) 09/15/16 08:00 Albumin 3.9 g/dL (3.0-4.8) 09/15/16 08:00 Globulin 3.7 gm/dL 09/15/16 08:00 Albumin/Globulin Ratio 1.1 (1.1-1.8) 09/15/16 08:00 Vitamin B12 832 pg/mL (239-931) 09/12/16 07:28 Methylmalonic Acid 129 nmol/L (87-318) 09/13/16 07:00 Folate > 20.0 ng/mL 09/12/16 07:28 Homocysteine 7.2 umol/L ( <10.4) 09/13/16 07:00 Urine Color Yellow (YELLOW) 09/12/16 01:00 Urine Appearance Sl cloudy (CLEAR) 09/12/16 01:00 Urine pH 6.0 (4.7-8.0) 09/12/16 01:00 Ur Specific Adams 1.020 (1.005-1.035) 09/12/16 01:00 Urine Protein Negative mg/dL (<30 mg/dL) 09/12/16 01:00 Urine Glucose (UA) Negative mg/dL (NEGATIVE) 09/12/16 01:00 Urine Ketones Negative mg/dL (NEGATIVE) 09/12/16 01:00 Urine Blood Large (NEGATIVE) H 09/12/16 01:00 Urine Nitrate Negative (NEGATIVE) 09/12/16 01:00 Urine Bilirubin Negative (NEGATIVE) 09/12/16 01:00 Urine Urobilinogen 0.2 E.U./dL (<1 E.U./dL) 09/12/16 01:00 Ur Leukocyte Esterase Negative Mar/uL (NEGATIVE) 09/12/16 01:00 Urine RBC 5 - 10 /hpf (0-2) 09/12/16 01:00 Urine WBC 1 - 3 /hpf (0-6) 09/12/16 01:00 Ur Epithelial Cells 0 - 2 /hpf (0-5) 09/12/16 01:00 Serum Immunofixation See note 09/12/16 07:28 BCR/abl Source Not given 09/13/16 07:00 BCR/abl Prior Result Not given 09/13/16 07:00 BCR/abl Interpretation See note 09/13/16 07:00 BCR/abl1 to abl1 % 0.000 (0.000) 09/13/16 07:00 BCR/abl1 to abl1 IS % 0.000 (0.000) 09/13/16 07:00 BCR/abl1 Mnr (p190) Res Not detected 09/13/16 07:00 BCR/abl1 Mjr (p210) Res Not detected 09/13/16 07:00 Blood Type A POSITIVE 09/12/16 11:14 Antibody Screen Negative 09/12/16 11:14 Crossmatch See Detail 09/12/16 11:14 Crossmatch IS Only See Detail 09/12/16 11:14 BBK History Checked Patient has bt 09/12/16 11:14 Attending/Attestation - Attestation I have personally seen and examined this patient.: Yes I have fully participated in the care of the patient.: Yes I have reviewed all pertinent clinical information, including history, physical exam and plan: Yes Notes (Text): 09/16/16 08:24 Medical record note made by resident after discussion with my direction and input after patient personally seen and examined by me. I have reviewed the chart and agree that the record accurately reflects my personal history, physical, data review and plan.
--- NOTE | 2016-09-15 16:33 | CP.PCM.PN ---
Subjective - Date & Time of Evaluation Date of Evaluation: 09/15/16 Time of Evaluation: 11:20 - Subjective Subjective: S&E earlier today. Feeling tired this am, had blood transfusion last night. No fever or chills. No c/o overt GI bleed. No acute overnight events reported. Objective - Vital Signs/Intake and Output Vital Signs (last 24 hours): Temp Pulse Resp BP Pulse Ox 99.5 F 96 H 18 134/71 98 09/15/16 08:33 09/15/16 09:26 09/15/16 08:33 09/15/16 09:26 09/15/16 08:33 Intake and Output: 09/15/16 09/15/16 06:59 18:59 Intake Total 1255 600 Output Total 400 1100 Balance 855 -500 - Medications Medications: Current Medications Acetaminophen (Tylenol 325mg Tab) 650 mg PO Q6H PRN PRN Reason: Pain, Mild (1-3) Last Admin: 09/15/16 09:43 Dose: 650 mg Amlodipine Besylate (Norvasc) 5 mg PO DAILY [facility] Last Admin: 09/15/16 09:26 Dose: 5 mg Atorvastatin Calcium (Lipitor) 10 mg PO DIN [facility] Last Admin: 09/14/16 17:08 Dose: 10 mg Docusate Sodium (Colace) 100 mg PO BID [facility] Last Admin: 09/15/16 09:26 Dose: 100 mg Morphine Sulfate (Morphine) 2 mg IVP Q4H PRN PRN Reason: Pain, moderate (4-7) Ondansetron HCl (Zofran Inj) 4 mg IVP Q4H PRN PRN Reason: Nausea/Vomiting Pantoprazole Sodium (Protonix Inj) 40 mg IVP DAILY [facility] Last Admin: 09/15/16 09:27 Dose: 40 mg Zolpidem Tartrate (Ambien) 5 mg PO HS PRN; Protocol PRN Reason: Insomnia Last Admin: 09/14/16 23:09 Dose: 5 mg - Labs Labs: 09/15/16 08:00 09/15/16 08:00 PT 10.0 Seconds (9.9-11.8) 09/12/16 01:00 INR 0.93 (0.93-1.08) 09/12/16 01:00 APTT 24.9 Seconds (23.7-30.8) 09/12/16 01:00 - Constitutional Appears: No Acute Distress - Head Exam Head Exam: NORMOCEPHALIC - Eye Exam Eye Exam: Normal appearance. absent: Scleral icterus - ENT Exam ENT Exam: Mucous Membranes Moist - Neck Exam Neck Exam: Normal Inspection - Respiratory Exam Respiratory Exam: Clear to Ausculation Bilateral, NORMAL BREATHING PATTERN. absent: Respiratory Distress - Cardiovascular Exam Cardiovascular Exam: +S1, +S2 - GI/Abdominal Exam GI & Abdominal Exam: Soft, Tenderness, Normal Bowel Sounds. absent: Guarding, Rebound - Neurological Exam Neurological Exam: Alert, Awake, Oriented x3 Assessment and Plan - Assessment and Plan (Free Text) Assessment: ASSESSMENT: Abdominal Pain Vaginal bleeding VS Hematuria Leukocytosis, r/o CLL H/O Melanoma w/ressection CVA COlon polyps PLAN: diet as tolerated PPI continue Colace [employer] FU outpt for BX possible DC today The patient was seen and case discussed with Dr. Ramirez.
[2016-09-15 17:22] VITALS: BP 123/70; PULSE 95; RESP 20; TEMP 98.5; O2SAT 95
--- NOTE | 2016-09-15 20:05 | CP.PCM.PN ---
Subjective - Date & Time of Evaluation Date of Evaluation: 09/15/16 Time of Evaluation: 08:00 - Subjective Subjective: STILL WEAK Objective - Vital Signs/Intake and Output Vital Signs (last 24 hours): Temp Pulse Resp BP Pulse Ox 98.5 F 95 H 20 123/70 95 09/15/16 16:00 09/15/16 16:00 09/15/16 16:00 09/15/16 16:00 09/15/16 16:00 Intake and Output: 09/15/16 09/16/16 18:59 06:59 Intake Total 600 Output Total 1100 Balance -500 - Labs Labs: 09/15/16 08:00 09/15/16 08:00 PT 10.0 Seconds (9.9-11.8) 09/12/16 01:00 INR 0.93 (0.93-1.08) 09/12/16 01:00 APTT 24.9 Seconds (23.7-30.8) 09/12/16 01:00 - Constitutional Appears: Well - Head Exam Head Exam: ATRAUMATIC, NORMAL INSPECTION, NORMOCEPHALIC - Eye Exam Eye Exam: EOMI, Normal appearance, PERRL Pupil Exam: NORMAL ACCOMODATION, PERRL - ENT Exam ENT Exam: Mucous Membranes Moist, Normal Exam - Neck Exam Neck Exam: Full ROM, Normal Inspection. absent: Lymphadenopathy - Respiratory Exam Respiratory Exam: Clear to Ausculation Bilateral, NORMAL BREATHING PATTERN - Cardiovascular Exam Cardiovascular Exam: REGULAR RHYTHM, +S1, +S2. absent: Murmur - GI/Abdominal Exam GI & Abdominal Exam: Soft, Normal Bowel Sounds. absent: Tenderness - Rectal Exam Rectal Exam: NORMAL INSPECTION - Exam Exam: Circumcision, NORMAL INSPECTION External exam: NORMAL EXTERNAL EXAM Speculum exam: NORMAL SPECULUM EXAM Bimanual exam: NORMAL BIMANUAL EXAM - Extremities Exam Extremities Exam: Full ROM, Normal Capillary Refill, Normal Inspection. absent : Joint Swelling, Pedal Edema - Back Exam Back Exam: NORMAL INSPECTION - Neurological Exam Neurological Exam: Alert, Awake, CN II-XII Intact, Normal Gait, Oriented x3 - Psychiatric Exam Psychiatric exam: Normal Affect, Normal Mood - Skin Skin Exam: Dry, Intact, Normal Color, Warm Assessment and Plan (1) SIRS (systemic inflammatory response syndrome) Status: Acute - Assessment and Plan (Free Text) Assessment: SIRS Plan: NO ABX HEME F/UP
[2016-09-16] LABS: BCR-ABL PRIOR RESULT NOT GIVEN; BCR-ABL SOURCE NOT GIVEN; P190 BCR-ABL1 NOT DETECTED; P210 BCR-ABL1 NOT DETECTED
[2016-09-16 19:17] LABS: JAK2 V617F NOT DETECTED
== END 2016-09-15 18:35 | disposition home or self-care (01) | DRG 812 ==
LOC: ED 22:34 → OBSVTOIN 09-12 03:51 → INTOOBSV 09-12 03:51 → ERH 09-12 03:51 → UNDOADMOB 09-12 03:51 → 3RSO 09-12 05:45 → ERH 09-12 05:45 → OBSVTOIN 09-14 14:42 → 3RSO 09-14 14:42 → UNDODISIN 09-15 18:35
PROVIDERS: ADMIT Internal Medicine; ATTEND Internal Medicine
PROC: 30233N1 Transfusion of Nonautologous Red Blood Cells into Peripheral Vein, Percutaneous Approach (ICD-10-PCS; principal; 2016-09-14)
DX: D50.0 Iron deficiency anemia secondary to blood loss (chronic) (principal); C95.90 Leukemia, unspecified not having achieved remission; D69.6 Thrombocytopenia, unspecified; K76.0 Fatty (change of) liver, not elsewhere classified; R65.10 Systemic inflammatory response syndrome (SIRS) of non-infectious origin without acute organ dysfunction; I10 Essential (primary) hypertension; E78.5 Hyperlipidemia, unspecified; D53.1 Other megaloblastic anemias, not elsewhere classified; D72.829 Elevated white blood cell count, unspecified; H54.41 Blindness, right eye, normal vision left eye; I69.398 Other sequelae of cerebral infarction; N94.89 Other specified conditions associated with female genital organs and menstrual cycle; N95.0 Postmenopausal bleeding; Z85.820 Personal history of malignant melanoma of skin; Z86.010 Personal history of colon polyps; Z87.891 Personal history of nicotine dependence; D53.9 Nutritional anemia, unspecified; R10.2 Pelvic and perineal pain; Z91.013 Allergy to seafood; Z91.018 Allergy to other foods; R42 Dizziness and giddiness

== ENCOUNTER 2016-10-20 13:18 | Observation (INO) | payer OTHER, MEDICAID ==
[2016-10-20 13:19] VITALS: BMI 33.7
--- NOTE | 2016-10-20 13:43 | ED PDOC ---
Arrival/HPI - General Time Seen by Provider: 10/20/16 13:25 Historian: Patient - History of Present Illness Narrative History of Present Illness (Text): 10/20/16 13:17 A 66 year old female, whose past medical history includes hypertension, hyperlipidemia, CVA, chronic hematuria and vertigo, was sent into the emergency department by oncologist for low hemoglobin count. Patient complains of fatigue , dizziness and nausea prior to arrival. Patient finished her first chemotherapy treatment last week. Patient notes she had two nose bleeds yesterday. She reports having multiple nose bleeds over the past 5 months. Patient notes mild shortness of breath but denies any fever, chills, vomiting, diarrhea, abdominal pain, chest pain, headache, vision changes or any other complaints. Oncologist: Dr. 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 right brest duct removal Family/Social History - Physician Review Nursing Documentation Reviewed: Yes Family/Social History: No Known Family HX Smoking Status: Current Some Days Smoker Hx Alcohol Use: No Hx Substance Use: No Allergies/Home Meds Allergies/Adverse Reactions: Allergies meclizine Adverse Reaction (Verified 10/20/16 14:02) DIZZINESS nut - unspecified Adverse Reaction (Verified 08/18/16 19:32) ANAPHYLAXIS shellfish derived Adverse Reaction (Verified 08/18/16 19:32) ANGIOEDEMA FRUIT Allergy (Uncoded 08/18/16 19:32) SHORTNESS OF BREATH Home Medications: Home Meds Medication Instructions Recorded Confirmed Pantoprazole [Protonix EC Tab] 1 tab PO DAILY 08/18/16 10/20/16 Zolpidem [Ambien] 1 tab PO PRN PRN 08/18/16 10/20/16 Alendronate [Fosamax] 70 mg PO DAILY 10/20/16 10/20/16 Cephalexin [cephalexin] 500 mg PO BID 10/20/16 10/20/16 Epinephrine [Epipen] 0.3 mg SC PRN 10/20/16 10/20/16 Ondansetron ODT [Zofran ODT] 8 mg PO PRN PRN 10/20/16 10/20/16 Simvastatin [Zocor] 20 mg PO DAILY 10/20/16 10/20/16 amLODIPine [Norvasc] 5 mg PO DAILY 10/20/16 10/20/16 Review of Systems - Physician Review All systems were reviewed & negative as marked: Yes - Review of Systems Constitutional: Fatigue. absent: Fevers, Night Sweats Eyes: absent: Vision Changes Respiratory: SOB Cardiovascular: absent: Chest Pain Gastrointestinal: Nausea. absent: Abdominal Pain, Vomiting Neurological: Dizziness. absent: Headache Physical Exam Vital Signs Temp Pulse Resp BP Pulse Ox 10/20/16 15:08 89 18 121/68 95 10/20/16 13:40 98.0 F 92 H 18 122/65 95 Medical Decision Making ED Course and Treatment: 10/20/16 13:17 Impression: A 66 year old female sent in for low hemoglobin count. Patient notes fatigue, dizziness and nausea. Plan: -- Chest xray -- EKG -- Labs -- Antivert and Zofran -- Reassess and disposition Prior Visits: Notes and results from previous visits were reviewed. Patient last seen in the ED on 09/11/16 and hospitalized for elevated WBCs and anemia. Progress Notes: Report Date : 10/20/2016 14:16:11 Procedure: Chest xray Dictator : Cipriano Mcguire MD IMPRESSION: No active disease. 10/20/16 15:15 Patient with Hgb of 7.1 - will need blood transfusion; she has been consented for PRBC transfusion which will require observation on med/surg - case discussed with Dr. Falcon for placement on his service. - Lab Interpretations Lab Results: 10/20/16 13:40 10/20/16 13:40 Lab Results 10/20/16 13:40: Blood Type A POSITIVE, Antibody Screen Negative, Crossmatch See Detail, BBK History Checked Patient has bt 10/20/16 13:40: Sodium 140, Potassium 3.9, Chloride 103, Carbon Dioxide 27, Anion Gap 14, BUN 14, Creatinine 0.7, Est GFR ( Amer) > 60, Est GFR (Non- Af Amer) > 60, Random Glucose 88, Calcium 9.1, Total Bilirubin 0.8, AST 33, ALT 31, Alkaline Phosphatase 51, Lactate Dehydrogenase 1308 H, Total Creatine Kinase 83, Troponin I < 0.01, Total Protein 7.7, Albumin 4.2, Globulin 3.5, Albumin/Globulin Ratio 1.2, Amylase 67, Lipase 54 10/20/16 13:40: PT 10.8, INR 1.00, APTT 25.7 10/20/16 13:40: WBC 14.0 H D, RBC 1.97 L, Hgb 7.1 L D, Hct 21.4 L, MCV 108.6 H, MCH 36.0 H, MCHC 33.2, RDW 25.8 H, Plt Count 52 L, MPV 9.6, Neutrophils % ( Manual) 64, Band Neutrophils % 11 H*, Lymphocytes % (Manual) 18 L, Monocytes % ( Manual) TEST NOT PERFORMED, Metamyelocytes % 7, Platelet Evaluation Low I have reviewed the lab results: Yes - RAD Interpretation Radiology Orders: 10/20/16 13:38 CHEST PORTABLE [RAD] Stat - Medication Orders Current Medication Orders: Discontinued Medications Acetaminophen (Tylenol 325mg Tab) Confirm Administered Dose 650 mg .ROUTE .STK- MED ONE Stop: 10/20/16 14:00 Last Admin: 10/20/16 14:02 Dose: Acetaminophen (Tylenol 325mg Tab) 650 mg PO STAT STA Stop: 10/20/16 14:03 Last Admin: 10/20/16 14:03 Dose: 650 mg Meclizine HCl (Antivert) 12.5 mg PO STAT STA Stop: 10/20/16 13:42 Last Admin: 10/20/16 14:01 Dose: Ondansetron HCl (Zofran Inj) 4 mg IVP STAT STA Stop: 10/20/16 13:42 Last Admin: 10/20/16 14:01 Dose: 4 mg - Scribe Statement The provider has reviewed the documentation as recorded by the Jeb Bruce Provider Scribe Attestation: All medical record entries made by the Scribe were at my direction and personally dictated by me. I have reviewed the chart and agree that the record accurately reflects my personal performance of the history, physical exam, medical decision making, and the department course for this patient. I have also personally directed, reviewed, and agree with the discharge instructions and disposition. Disposition/Present on Arrival - Present on Arrival Any Indicators Present on Arrival: No History of DVT/PE: No History of Uncontrolled Diabetes: No Urinary Catheter: No History Surgical Site Infection Following: None - Disposition Have Diagnosis and Disposition been Completed?: Yes Diagnosis: Anemia Disposition: HOSPITALIZED Disposition Time: 13:40 Patient Plan: Observation Condition: FAIR
[2016-10-20 14:08] LABS: MEAN CELL VOLUME 108.6 fL (80.0-105.0); MEAN CORPUSCULAR HGB CONC 33.2 g/dl (31.0-37.0); MEAN PLATELET VOLUME 9.6 fl (7.0-11.0); PLATELET COUNT 52 10^3/uL (120.0-450.0); RED CELL DISTRIBUTION WIDTH 25.8 % (11.5-14.5)
[2016-10-20 14:16] LABS: ADD MANUAL DIFF? YES; HEMATOCRIT 21.4 % (36.0-48.0)
[2016-10-20 14:17] LABS: PARTIAL THROMBOPLASTIN TIME 25.7 Seconds (23.7-30.8)
[2016-10-20 14:18] LABS: ALB/GLOB RATIO 1.2 (1.1-1.8); ALKALINE PHOSPHATASE 51 U/L (38-133); ALT/SGPT 31 U/L (7-56); AMYLASE 67 U/L (35-125); AST/SGOT 33 U/L (15-39); BILIRUBIN,TOTAL 0.8 mg/dL (0.2-1.3); BLOOD UREA NITROGEN 14 mg/dL (7-21); CALCIUM 9.1 mg/dL (8.4-10.5); CARBON DIOXIDE 27 mmol/L (21-33); CHLORIDE 103 mmol/L (98-107); GFR AFRICAN-AMERICAN > 60; GLUCOSE,RANDOM 88 mg/dL (70-110); LIPASE 54 U/L (23-300); POTASSIUM 3.9 mmol/L (3.6-5.0); SODIUM 140 mmol/L (132-148); TOTAL PROTEIN 7.7 g/dL (5.8-8.3)
--- NOTE | 2016-10-20 14:18 | RAD ---
HISTORY: anemia COMPARISON: 08/18/2016 FINDINGS: LUNGS: No active pulmonary disease. PLEURA: No significant pleural effusion identified, no pneumothorax apparent. CARDIOVASCULAR: Normal. OSSEOUS STRUCTURES: No significant abnormalities. VISUALIZED UPPER ABDOMEN: Normal. OTHER FINDINGS: None. IMPRESSION: No active disease.
[2016-10-20 14:28] LABS: METAMYELOCYTE 7 %; NEUTROPHIL 64 % (50.0-70.0)
[2016-10-20 14:29] LABS: BAND 11 % (0-2); PLATELET ESTIMATE LOW (NORMAL); TROPONIN I < 0.01 ng/mL
[2016-10-20] MEDS ORDERED: Pantoprazole 40 mg EC Tab PO SCH (17:15)
[2016-10-20] MEDS ORDERED: EPINEPHRINE 0.3 MG SC SCH (17:15)
[2016-10-20] MEDS ORDERED: Pneumococcal 23-Valent Vaccine IM ONE (22:05)
--- NOTE | 2016-10-20 22:52 | CP.PCM.HP ---
Addendum entered and electronically signed by Anibal Mitchell DO 23:24: ROS: Pt admits to generalized fatigue Pt admits to r sided blindness (not acute) Pt admits to mild sob Original Note: <Anibal Mitchell - Last Filed: 10/20/16 23:12> History of Present Illness - History of Present Illness History of Present Illness: 66 F with PMHx of HTN, HLD, CVA, Chronic Hematuria 2/2 minor bladder stones, Vertigo, and Leukemia, sent to ED by oncologist for low hemoglobin count. Pt was recently diagnosed with Leukemia at the end of July, and recently began chemotherapy, finishing her first treatment last week. Since then she has had multiple nose bleeds. Upon arrival to the ED, she states she is having mild shortness of breath, fatigue, dizziness, and nausea, but denies F/Ch/CP/ constipation/diarrhea/vomiting/LE pain. 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, Osteopenia All: Meclizine; nut; shellfish SocHx: Quit smoking 5 years ago; denies etoh, illicits Fam Hx: DM, Anemia, Several CA's Meds: Amlodipine, Pantoprazole, Solpidem, Simvastatin, Zofran, Fosamax Present on Admission - Present on Admission Any Indicators Present on Admission: No Review of Systems - Hematologic/Lymphatic Additional comments: Constitutional: pt denies fever, chills, generalized weakness ENT: pt denies dysphagia, otalgia, hearing deficit, rhinorrhea Eyes: pt denies sudden loss of vision, diplopia, blurred vision MSK: pt denies muscle stiffness, joint pain, extremity cramping Cardio: pt denies sob, heart murmur, cp Pulm: pt denies cough, hemoptysis, wheeze GI: pt denies loss of appetite, abdominal pain, constipation, melena, n/v/d : pt denies burning on urination, urinary frequency, hematuria, urinary urgency Neuro: pt denies paresis, paresthesia, dizziness, douglas, numbness, tingling Derm: pt denies skin changes, lesions, nail changes Endo: pt denies intolerance to heat/cold, diaphoresis, night sweats, polydipsia Psych: pt denies anxiety, depression, mood changes Past Patient History - Infectious Disease Hx of Infectious Diseases: None - Past Social History Smoking Status: Former Smoker - CARDIAC Hx Cardiac Disorders: Yes Hx Hypercholesterolemia: Yes Hx Hypertension: Yes - PULMONARY Hx Respiratory Disorders: Yes (SMOKED 4-5 CIG A DAY. 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) - RENAL Hx Chronic Kidney Disease: No - ENDOCRINE/METABOLIC Hx Endocrine Disorders: No - HEMATOLOGICAL/ONCOLOGICAL Hx Blood Disorders: Yes Hx Cancer: Yes (melanoma of right breast,LEUKEMIA) Hx Chemotherapy: Yes (1ST CHEMO LAST WEEK SEPTEMBER 2016) - INTEGUMENTARY Hx Dermatological Problems: No Other/Comment: EDEMA +1 PITTING - MUSCULOSKELETAL/RHEUMATOLOGICAL Hx Falls: No - GASTROINTESTINAL Hx Gastrointestinal Disorders: Yes Other/Comment: 5 colonic polyps - GENITOURINARY/GYNECOLOGICAL Hx Genitourinary Disorders: Yes Hx Hematuria: Yes (chronic) - PSYCHIATRIC Hx Psychophysiologic Disorder: Yes (SMOKED CIGARETTES AND ETOH SOCIALLY QUIT BOTH 2012) Hx Substance Use: No - SURGICAL HISTORY Hx Surgeries: Yes Hx Orthopedic Surgery: Yes (Left knee x2) Other/Comment: cyst removal from both breasts. right breAst duct removal Meds Allergies/Adverse Reactions: Allergies Allergy/AdvReac Type Severity Reaction Status Date / Time meclizine AdvReac DIZZINESS Verified 10/20/16 15:22 nut - unspecified AdvReac ANAPHYLAXIS Verified 10/20/16 15:22 shellfish derived AdvReac ANGIOEDEMA Verified 10/20/16 15:22 FRUIT Allergy SHORTNESS Uncoded 10/20/16 15:22 OF BREATH Physical Exam - Additional Findings Additional findings: VS as below Constitutional: +pt is drowsy; a&o x 4, nad, Head and Neck: neck supple, no jvd, trachea midline, carotid midline, no cervical/head mass Eyes: donn, nonicteric sclera, eom intact ENT: auditory acuity grossly intact, throat not congested, no nasal deformity Cardio: rrr, no m/r/g, no carotid bruit, nml s1, s2 Pulm: no accessory muscle use, equal nml breath sounds bilaterally, ctab Abd: s/nt/nd, nbs x 4 q, no palpable masses Derm: +multiple ecchymoses present Extr: no edema, no cyanosis, no calf tenderness, no lesions, no varicosities Neuro: cn II-XII grossly intact, ue and le 5/5 muscle strength bilaterally, no los ue, le bilaterally and core Results - Vital Signs Recent Vital Signs: Last Vital Signs Temp 98.8 F 10/20/16 21:45 Pulse 85 10/20/16 21:45 Resp 19 10/20/16 21:45 BP 115/62 10/20/16 21:45 Pulse Ox 97 10/20/16 15:34 - Labs Result Diagrams: 10/20/16 13:40 10/20/16 13:40 Assessment & Plan - Assessment and Plan (Free Text) Assessment: 66F Presenting with c/o generalized fatigue, sent to ED for blood transfusion from PMD. Plan: 1. Macrocytic anemia - Hgb 7.3, MCV 108 - 2U of blood transfused - Will transfuse as necessary - Heme/Onc consulted - Dr. Bermudez 2. Hypertension - Continue home norvasc 5mg po qd 3. Hyperlipidemia - Continue lipitor 10mg po qd 4. Leukemia - Continue recs per heme/onc 5. GI/DVT prophylaxis -Protonix/SCD's <Armando Damon - Last Filed: 10/29/16 09:13> Results - Vital Signs Recent Vital Signs: Last Vital Signs Temp 98.6 F 10/21/16 06:00 Pulse 82 10/21/16 06:00 Resp 18 10/21/16 06:00 BP 132/68 10/21/16 06:00 Pulse Ox 95 10/21/16 06:00 - Labs Result Diagrams: 10/21/16 07:45 10/21/16 07:45 Attending/Attestation - Attestation I have personally seen and examined this patient.: Yes I have fully participated in the care of the patient.: Yes I have reviewed all pertinent clinical information: Yes Notes (Text): 10/29/16 09:13 Medical record note made by the resident done after discussion with my direction and input after the patient was personally seen by me. I have reviewed the chart and agree that the record accurately reflects my personal history, physical, data review, decision making and course for the patient.
[2016-10-21 07:12] VITALS: BP 132/68; PULSE 82; RESP 18; TEMP 98.6; O2SAT 95
--- NOTE | 2016-10-21 07:58 | CARD ---
APPROVED REPORT EKG Measurement Heart [id number] <Conclusion> Normal sinus rhythm Normal ECG
[2016-10-21 08:16] LABS: HEMATOCRIT 27.5 % (36.0-48.0); MEAN CELL VOLUME 100.7 fL (80.0-105.0); MEAN CORPUSCULAR HEMOGLOBIN 34.1 pg (25.0-35.0); MEAN CORPUSCULAR HGB CONC 33.8 g/dl (31.0-37.0); MEAN PLATELET VOLUME 9.8 fl (7.0-11.0); PLATELET COUNT 40 10^3/uL (120.0-450.0); RED CELL DISTRIBUTION WIDTH 24.4 % (11.5-14.5); WHITE BLOOD COUNT 10.6 10^3/ul (4.5-11.0)
[2016-10-21 08:23] LABS: ADD MANUAL DIFF? YES
[2016-10-21 08:25] LABS: ALB/GLOB RATIO 1.2 (1.1-1.8); ALKALINE PHOSPHATASE 44 U/L (38-133); ALT/SGPT 36 U/L (7-56); AST/SGOT 30 U/L (15-39); BILIRUBIN,TOTAL 0.8 mg/dL (0.2-1.3); BLOOD UREA NITROGEN 17 mg/dL (7-21); CALCIUM 8.8 mg/dL (8.4-10.5); CARBON DIOXIDE 29 mmol/L (21-33); CHLORIDE 105 mmol/L (95-110); GFR AFRICAN-AMERICAN > 60; GLUCOSE,RANDOM 99 mg/dL (70-110); POTASSIUM 4.2 mmol/L (3.6-5.0); SODIUM 142 mmol/L (132-148); TOTAL PROTEIN 7.1 g/dL (5.8-8.3)
[2016-10-21 09:16] LABS: BAND 9 % (0-2); METAMYELOCYTE 4 %; NEUTROPHIL 60 % (50.0-70.0); NUCLEATED RED BLOOD CELL 1 %
[2016-10-21 09:17] LABS: PLATELET ESTIMATE LOW (NORMAL)
--- NOTE | 2016-10-21 15:36 | CP.PCM.DIS ---
Provider - Provider Date of Admission: 10/20/16 14:41 Attending physician: Armando Damon MD Primary care physician: Jasson Velazquez MD Time Spent in preparation of Discharge (in minutes): 45 Diagnosis - Discharge Diagnosis (1) Anemia Status: Acute Hospital Course - Lab Results Lab Results: Most Recent Lab Values WBC 10.6 10^3/ul (4.5-11.0) D 10/21/16 07:45 RBC 2.73 10^6/uL (3.5-6.1) L 10/21/16 07:45 Hgb 9.3 gm/dL (12.0-16.0) L 10/21/16 07:45 Hct 27.5 % (36.0-48.0) L 10/21/16 07:45 MCV 100.7 fL (80.0-105.0) 10/21/16 07:45 MCH 34.1 pg (25.0-35.0) 10/21/16 07:45 MCHC 33.8 g/dl (31.0-37.0) 10/21/16 07:45 RDW 24.4 % (11.5-14.5) H 10/21/16 07:45 Plt Count 40 10^3/uL (120.0-450.0) L* 10/21/16 07:45 MPV 9.8 fl (7.0-11.0) 10/21/16 07:45 Neutrophils % (Manual) 60 % (50.0-70.0) 10/21/16 07:45 Band Neutrophils % 9 % (0-2) H 10/21/16 07:45 Lymphocytes % (Manual) 26 % (22.0-35.0) 10/21/16 07:45 Monocytes % (Manual) 1 % (1.0-6.0) 10/21/16 07:45 Metamyelocytes % 4 % 10/21/16 07:45 Nucleated RBC % 1 % 10/21/16 07:45 Platelet Evaluation Low (NORMAL) 10/21/16 07:45 PT 10.8 Seconds (9.9-11.8) 10/20/16 13:40 INR 1.00 (0.93-1.08) 10/20/16 13:40 APTT 25.7 Seconds (23.7-30.8) 10/20/16 13:40 Sodium 142 mmol/L (132-148) 10/21/16 07:45 Potassium 4.2 mmol/L (3.6-5.0) 10/21/16 07:45 Chloride 105 mmol/L (95-110) 10/21/16 07:45 Carbon Dioxide 29 mmol/L (21-33) 10/21/16 07:45 Anion Gap 12 (10-20) 10/21/16 07:45 BUN 17 mg/dL (7-21) 10/21/16 07:45 Creatinine 0.7 mg/dL (0.5-1.4) 10/21/16 07:45 Est GFR ( Amer) > 60 10/21/16 07:45 Est GFR (Non-Af Amer) > 60 10/21/16 07:45 Random Glucose 99 mg/dL (70-110) 10/21/16 07:45 Calcium 8.8 mg/dL (8.4-10.5) 10/21/16 07:45 Total Bilirubin 0.8 mg/dL (0.2-1.3) 10/21/16 07:45 AST 30 U/L (15-39) 10/21/16 07:45 ALT 36 U/L (7-56) 10/21/16 07:45 Alkaline Phosphatase 44 U/L (38-133) 10/21/16 07:45 Lactate Dehydrogenase 1308 U/L (333-699) H 10/20/16 13:40 Total Creatine Kinase 83 U/L (35-230) 10/20/16 13:40 Troponin I < 0.01 ng/mL 10/20/16 13:40 Total Protein 7.1 g/dL (5.8-8.3) 10/21/16 07:45 Albumin 3.9 g/dL (3.0-4.8) 10/21/16 07:45 Globulin 3.2 gm/dL 10/21/16 07:45 Albumin/Globulin Ratio 1.2 (1.1-1.8) 10/21/16 07:45 Amylase 67 U/L (35-125) 10/20/16 13:40 Lipase 54 U/L (23-300) 10/20/16 13:40 Blood Type A POSITIVE 10/20/16 13:40 Antibody Screen Negative 10/20/16 13:40 Crossmatch See Detail 10/20/16 13:40 BBK History Checked Patient has bt 10/20/16 13:40 - Hospital Course Hospital Course: 66 F with PMHx of HTN, HLD, CVA, Chronic Hematuria 2/2 minor bladder stones, Vertigo, and Leukemia, was sent to ED by oncologist for low hemoglobin count to be transfused with 2 units of blood. Pt was recently diagnosed with Leukemia at the end of July, and recently began chemotherapy, finishing her first treatment last week. Since then she has had multiple nose bleeds. Upon arrival to the ED, she stated she was having mild shortness of breath, fatigue, dizziness, and nausea, but denies F/Ch/CP/constipation/diarrhea/vomiting/LE pain. Patient was transfused with 2U of blood on day of admission. The next day, patient's Heme/Onc, Dr. Bermudez, stated that she was ready for d/ c. Patient was examined clinically and her labs were reviewed. Patient was much less fatigued, more alert, and felt stronger when she was examined, and it was deemed appropriate to discharge her. Discharge Exam - Additional Findings Additional findings: VS as below Constitutional: a&o x 4, nad Head and Neck: neck supple, no jvd, trachea midline, carotid midline, no cervical/head mass Eyes: donn, nonicteric sclera, eom intact ENT: auditory acuity grossly intact, throat not congested, no nasal deformity Cardio: rrr, no m/r/g, no carotid bruit, nml s1, s2 Pulm: no accessory muscle use, equal nml breath sounds bilaterally, ctab Abd: s/nt/nd, nbs x 4 q, no palpable masses Derm: no rashes, no ulcers, no lesions Extr: no edema, no cyanosis, no calf tenderness, no lesions, no varicosities Neuro: cn II-XII grossly intact, ue and le 5/5 muscle strength bilaterally, no los ue, le bilaterally and core Discharge Plan - Follow Up Plan Condition: FAIR Disposition: HOME/ ROUTINE Instructions: Myelodysplastic Syndromes (DC), Anemia (DC) Additional Instructions: PT discharged to home. PT instructed to follow up with Dr. Bermudez for continued care. No changes made to medical regime. PT instructed to return to ED if patient experiences any unrelenting pain, chest pain, shortness of breath. Referrals: Chinyere Bermudez MD [Staff Provider] - Jasson Velazquez MD [Primary Care Provider] -
== END 2016-10-21 14:34 | disposition home or self-care (01) ==
LOC: ED 13:18 → ERH 14:41 → 3RSO 16:55
PROVIDERS: ADMIT Internal Medicine; ATTEND Internal Medicine
DX: D64.9 Anemia, unspecified (principal); I10 Essential (primary) hypertension; C95.90 Leukemia, unspecified not having achieved remission; I69.398 Other sequelae of cerebral infarction; H54.41 Blindness, right eye, normal vision left eye; R31.9 Hematuria, unspecified; N21.0 Calculus in bladder; M85.80 Other specified disorders of bone density and structure, unspecified site; E78.5 Hyperlipidemia, unspecified; R42 Dizziness and giddiness; Z87.891 Personal history of nicotine dependence
CPT/HCPCS: 36415; 36430; 71010; 80053; 82150; 82550; 83615; 83690; 84484; 85025; 85610; 85730; 86850; 86900; 86920; 93005; 96374; 99282; G0378; J2405; P9040

== ENCOUNTER 2016-11-15 02:08 | Inpatient (IN) | payer OTHER ==
--- NOTE | 2016-11-15 03:48 | ED PDOC ---
Arrival/HPI - General Time Seen by Provider: 11/15/16 03:41 Historian: Patient - History of Present Illness Narrative History of Present Illness (Text): 11/15/16 03:48 Megha Gonzales is a 66 year old female, whose past medical history includes hypertension, hyperlipidemia, CVA, chronic hematuria, vertigo, and leukemia, who presents to the Emergency department complaining of epistaxis and weakness. Patient states a few hours prior to arrival she had a heavy nose bleed and then began experiencing generalized weakness with dizziness. Patient states she has experienced similar symptoms in the past. Patient notes she was recently hospitalized for anemia and transfused. Patient denies any chest pain, shortness of breath, nausea, vomiting, back pain, neck pain, headache, dizziness , vision changes, or any other complaints. Hematology/Oncology: Dr. Bermudez Time/Duration: Other (tonight) Symptom Onset: Gradual Symptom Course: Unchanged Activities at Onset: Rest, Light Context: Home Past Medical History - Provider Review Nursing Documentation Reviewed: Yes - Infectious Disease Hx of Infectious Diseases: None - Cardiac Hx Cardiac Disorders: Yes Hx Hypertension: Yes - Pulmonary Hx Respiratory Disorders: Yes (SMOKED 4-5 CIG A DAY. 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) - Renal Hx Renal Disorder: No - Endocrine/Metabolic Hx Endocrine Disorders: No - Hematological/Oncological Hx Blood Disorders: Yes Hx Cancer: Yes (melanoma of right breast,LEUKEMIA) Hx Chemotherapy: Yes (1ST CHEMO LAST WEEK SEPTEMBER 2016) - Integumentary Hx Dermatological Disorder: No Other/Comment: EDEMA +1 PITTING - Musculoskeletal/Rheumatological Hx Falls: No - Gastrointestinal Hx Gastrointestinal Disorders: Yes Other/Comment: 5 colonic polyps - Genitourinary/Gynecological Hx Genitourinary Disorders: Yes Hx Hematuria: Yes (chronic) - Psychiatric Hx Psychophysiologic Disorder: Yes (SMOKED CIGARETTES AND ETOH SOCIALLY QUIT BOTH 2012) Hx Substance Use: No - Surgical History Hx Orthopedic Surgery: Yes (Left knee x2) Other/Comment: cyst removal from both breasts. right breAst duct removal Family/Social History - Physician Review Nursing Documentation Reviewed: Yes Family/Social History: Unknown Family HX Smoking Status: Former Smoker Hx Alcohol Use: (QUIT 2012.DRANK SOCIALLY) Hx Substance Use: No Allergies/Home Meds Allergies/Adverse Reactions: Allergies meclizine Adverse Reaction (Verified 11/15/16 04:58) DIZZINESS nut - unspecified Adverse Reaction (Verified 11/15/16 04:58) ANAPHYLAXIS shellfish derived Adverse Reaction (Verified 11/15/16 04:58) ANGIOEDEMA FRUIT Allergy (Uncoded 11/15/16 04:58) SHORTNESS OF BREATH Home Medications: Home Meds Medication Instructions Recorded Confirmed Pantoprazole [Protonix EC Tab] 1 tab PO DAILY 08/18/16 11/15/16 Zolpidem [Ambien] 1 tab PO PRN PRN 08/18/16 11/15/16 Alendronate [Fosamax] 70 mg PO DAILY 10/20/16 11/15/16 Cephalexin [Keflex] 500 mg PO BID 10/20/16 11/15/16 Epinephrine [Epipen] 0.3 mg SC PRN 10/20/16 11/15/16 Ondansetron ODT [Zofran ODT] 8 mg PO PRN PRN 10/20/16 11/15/16 Simvastatin [Zocor] 20 mg PO DAILY 10/20/16 11/15/16 amLODIPine [Norvasc] 5 mg PO DAILY 10/20/16 11/15/16 Review of Systems - Physician Review All systems were reviewed & negative as marked: Yes - Review of Systems Constitutional: Other (+generalized weakness). absent: Fevers Eyes: Normal ENT: Epistaxis Respiratory: Normal. absent: SOB, Cough Cardiovascular: Normal. absent: Chest Pain Gastrointestinal: Normal. absent: Abdominal Pain, Diarrhea, Nausea, Vomiting Genitourinary Female: Normal. absent: Dysuria, Frequency, Hematuria, Urine Output Changes Musculoskeletal: Normal. absent: Back Pain, Neck Pain Skin: Normal. absent: Rash Neurological: Dizziness. absent: Headache Endocrine: Normal Hemo/Lymphatic: Normal Psychiatric: Normal Physical Exam Vital Signs Reviewed: Yes Vital Signs Temp Pulse Resp BP Pulse Ox 11/15/16 05:45 86 18 114/53 L 95 11/15/16 03:56 98.1 F 80 18 115/64 100 Temperature: Afebrile Blood Pressure: Normal Pulse: Regular Respiratory Rate: Normal Appearance: Positive for: Well-Appearing, Non-Toxic, Comfortable Pain Distress: None Mental Status: Positive for: Alert and Oriented X 3 - Systems Exam Head: Present: Atraumatic, Normocephalic Pupils: Present: PERRL Extroacular Muscles: Present: EOMI Conjunctiva: Present: Normal Ears: Present: Normal, NORMAL TM, Normal Canal. No: Erythema, TM Bulging, Fluid , TM Perf Mouth: Present: Moist Mucous Membranes Pharnyx: Present: Normal. No: ERYTHEMA, EXUDATE, TONSILS ENLARGED, Peritonsilar Swelling, Uvular Deviation, Muffled/Hoarse Voice, Strider, Soft Palate/Uvular Edema Nose (External): Present: Atraumatic Nose (Internal): Present: Other (Dried blood in left naris) Neck: Present: Normal Range of Motion Respiratory/Chest: Present: Clear to Auscultation, Good Air Exchange. No: Respiratory Distress, Accessory Muscle Use Cardiovascular: Present: Regular Rate and Rhythm, Normal S1, S2. No: Murmurs Abdomen: Present: Normal Bowel Sounds. No: Tenderness, Distention, Peritoneal Signs Back: Present: Normal Inspection Upper Extremity: Present: Normal Inspection. No: Cyanosis, Edema Lower Extremity: Present: Normal Inspection. No: Edema Neurological: Present: GCS=15, CN II-XII Intact, Speech Normal Skin: Present: Warm, Dry, Normal Color. No: Rashes Psychiatric: Present: Alert, Oriented x 3, Normal Insight, Normal Concentration Medical Decision Making ED Course and Treatment: 11/15/16 03:48 Impression: 66 year old female complaining of epistaxis, generalized weakness, and dizziness tonight. Differential Diagnosis included but are not limited to: anemia vs. epistaxis Plan: -- Labs, blood type and screen -- Reassess and disposition Prior Visits: Notes and results from previous visits were reviewed. On 10/20/2016, pt was seen in the Emergency department for lower hemoglobin. Pt was admitted to the hospital for further evaluation. Progress Notes: 11/15/16 05:35 Reviewed labs, hemoglobin: 6.7, hematocrit: 20.0. Will transfuse pt. 11/15/16 05:[address] Falcon, covering for Dr. Damon, who is aware and agrees with plan. Pt will be admitted to Telemetry for severe anemia. campus president notified. - Lab Interpretations Lab Results: 11/15/16 04:40 11/15/16 04:40 Lab Results 11/15/16 04:40: Blood Type Pending, Antibody Screen Pending, BBK History Checked Patient has bt 11/15/16 04:40: WBC 13.9 H D, RBC 1.89 L, Hgb 6.7 L*, Hct 20.0 L*, MCV 105.8 H, MCH 35.4 H, MCHC 33.5, RDW 24.3 H, Plt Count 20 L*, MPV 9.1 11/15/16 04:40: Sodium 142, Potassium 4.1, Chloride 104, Carbon Dioxide 28, Anion Gap 14, BUN 24 H, Creatinine 0.9, Est GFR ( Amer) > 60, Est GFR ( Non-Af Amer) > 60, Random Glucose 101, Calcium 8.7, Total Bilirubin 0.4, AST 27 , ALT 32, Alkaline Phosphatase 44, Total Protein 6.7, Albumin 3.8, Globulin 2.9 , Albumin/Globulin Ratio 1.3 11/15/16 04:40: PT 10.8, INR 1.00, APTT 28.0 I have reviewed the lab results: Yes - Medication Orders Current Medication Orders: Famotidine (Pepcid 20mg/50ml Premix) 20 mg in 50 mls @ 100 mls/hr IV Q12 LOW - Scribe Statement The provider has reviewed the documentation as recorded by the Jeb Stuart Provider Scribe Attestation: All medical record entries made by the Scribe were at my direction and personally dictated by me. I have reviewed the chart and agree that the record accurately reflects my personal performance of the history, physical exam, medical decision making, and the department course for this patient. I have also personally directed, reviewed, and agree with the discharge instructions and disposition. Disposition/Present on Arrival - Present on Arrival Any Indicators Present on Arrival: No History of DVT/PE: No History of Uncontrolled Diabetes: No Urinary Catheter: No History of Decub. Ulcer: No History Surgical Site Infection Following: None - Disposition Have Diagnosis and Disposition been Completed?: Yes Diagnosis: Blood loss anemia, Leukemia, Epistaxis, Thrombocytopenia Disposition: HOSPITALIZED Disposition Time: 06:02 Patient Plan: Admission Patient Problems: Current Active Problems Problem Status Onset Blood loss anemia Acute Epistaxis Acute Leukemia Acute Condition: STABLE
[2016-11-15 03:58] VITALS: BMI 30.2
[2016-11-15 05:18] LABS: MEAN CELL VOLUME 105.8 fl (80.0-105.0); MEAN CORPUSCULAR HEMOGLOBIN 35.4 pg (25.0-35.0); MEAN CORPUSCULAR HGB CONC 33.5 g/dl (31.0-37.0); MEAN PLATELET VOLUME 9.1 fl (7.0-11.0); RED CELL DISTRIBUTION WIDTH 24.3 % (11.5-14.5); WHITE BLOOD COUNT 13.9 10^3/ul (4.5-11.0)
[2016-11-15 05:29] LABS: ALB/GLOB RATIO 1.3 (1.1-1.8); ALKALINE PHOSPHATASE 44 U/L (38-133); ALT/SGPT 32 U/L (7-56); AST/SGOT 27 U/L (15-39); BILIRUBIN,TOTAL 0.4 mg/dL (0.2-1.3); BLOOD UREA NITROGEN 24 mg/dL (7-21); CALCIUM 8.7 mg/dL (8.4-10.5); CARBON DIOXIDE 28 mmol/L (21-33); CHLORIDE 104 mmol/L (98-107); GFR AFRICAN-AMERICAN > 60; GLUCOSE,RANDOM 101 mg/dL (70-110); PLATELET COUNT 20 10^3/uL (120.0-450.0); POTASSIUM 4.1 mmol/L (3.6-5.0); SODIUM 142 mmol/L (132-148); TOTAL PROTEIN 6.7 g/dL (5.8-8.3)
--- NOTE | 2016-11-15 09:22 | CP.PCM.HP ---
History of Present Illness - History of Present Illness History of Present Illness: 66 F with PMHx of HTN, HLD, CVA, Chronic Hematuria 2/2 minor bladder stones, Vertigo, and Leukemia, presents for low hemoglobin count and epistaxis. Pt was recently diagnosed with Leukemia at the end of July, and recently began chemotherapy, finishing her first treatment at the end of September. Since then she has had multiple nose bleeds. Upon arrival to the ED, she states she is having mild shortness of breath, fatigue, dizziness, and nausea, but denies F/Ch/CP/ constipation/diarrhea/vomiting/LE pain. 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, Osteopenia All: Meclizine; nut; shellfish SocHx: Quit smoking 5 years ago; denies etoh, illicits Fam Hx: DM, Anemia, Several CA's Meds: Amlodipine, Pantoprazole, Solpidem, Simvastatin, Zofran, Fosamax ROS: Constitutional: +Fatigue; pt denies fever, chills ENT: pt denies dysphagia, otalgia, hearing deficit, rhinorrhea Eyes: +R sided blindness, chronic; pt denies sudden loss of vision, diplopia, blurred vision MSK: pt denies muscle stiffness, joint pain, extremity cramping Cardio: pt denies sob, heart murmur, cp Pulm: +Mild sob; pt denies cough, hemoptysis, wheeze GI: pt denies loss of appetite, abdominal pain, constipation, melena, n/v/ d : pt denies burning on urination, urinary frequency, hematuria, urinary urgency Neuro: pt denies paresis, paresthesia, dizziness, douglas, numbness, tingling Derm: pt denies skin changes, lesions, nail changes Endo: pt denies intolerance to heat/cold, diaphoresis, night sweats, polydipsia Psych: pt denies anxiety, depression, mood changes Present on Admission - Present on Admission Any Indicators Present on Admission: No Past Patient History - Infectious Disease Hx of Infectious Diseases: None - Past Social History Smoking Status: Former Smoker - CARDIAC Hx Cardiac Disorders: Yes Hx Hypertension: Yes - PULMONARY Hx Respiratory Disorders: Yes (SMOKED 4-5 CIG A DAY. 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) - RENAL Hx Chronic Kidney Disease: No - ENDOCRINE/METABOLIC Hx Endocrine Disorders: No - HEMATOLOGICAL/ONCOLOGICAL Hx Blood Disorders: Yes Hx Cancer: Yes (melanoma of right breast,LEUKEMIA) Hx Chemotherapy: Yes (1ST CHEMO LAST WEEK SEPTEMBER 2016) - INTEGUMENTARY Hx Dermatological Problems: No Other/Comment: EDEMA +1 PITTING - MUSCULOSKELETAL/RHEUMATOLOGICAL Hx Falls: No - GASTROINTESTINAL Hx Gastrointestinal Disorders: Yes Other/Comment: 5 colonic polyps - GENITOURINARY/GYNECOLOGICAL Hx Genitourinary Disorders: Yes Hx Hematuria: Yes (chronic) - PSYCHIATRIC Hx Psychophysiologic Disorder: Yes (SMOKED CIGARETTES AND ETOH SOCIALLY QUIT BOTH 2012) Hx Substance Use: No - SURGICAL HISTORY Hx Orthopedic Surgery: Yes (Left knee x2) Other/Comment: cyst removal from both breasts. right breAst duct removal Meds Allergies/Adverse Reactions: Allergies Allergy/AdvReac Type Severity Reaction Status Date / Time meclizine AdvReac DIZZINESS Verified 11/15/16 04:58 nut - unspecified AdvReac ANAPHYLAXIS Verified 11/15/16 04:58 shellfish derived AdvReac ANGIOEDEMA Verified 11/15/16 04:58 FRUIT Allergy SHORTNESS Uncoded 11/15/16 04:58 OF BREATH Physical Exam - Additional Findings Additional findings: VS as below Constitutional: +pt is drowsy; a&o x 4, nad, Head and Neck: neck supple, no jvd, trachea midline, carotid midline, no cervical/head mass Eyes: donn, nonicteric sclera, eom intact ENT: auditory acuity grossly intact, throat not congested, no nasal deformity Cardio: rrr, no m/r/g, no carotid bruit, nml s1, s2 Pulm: no accessory muscle use, equal nml breath sounds bilaterally, ctab Abd: s/nt/nd, nbs x 4 q, no palpable masses Derm: +multiple ecchymoses present Extr: no edema, no cyanosis, no calf tenderness, no lesions, no varicosities Neuro: cn II-XII grossly intact, ue and le 5/5 muscle strength bilaterally, no los ue, le bilaterally and core Results - Vital Signs Recent Vital Signs: Last Vital Signs Temp 98.1 F 11/15/16 03:56 Pulse 81 11/15/16 07:55 Resp 17 11/15/16 07:55 BP 105/48 L 11/15/16 07:55 Pulse Ox 97 11/15/16 07:55 - Labs Result Diagrams: 11/15/16 04:40 11/15/16 04:40 Assessment & Plan - Assessment and Plan (Free Text) Assessment: 66F Presenting with c/o generalized fatigue and epistaxis, found to have low H& H on admission Plan: 1. Macrocytic anemia - Hgb 6.7, MCV 105.8 - Macrocytosis likely 2/2 leukemia - Anemia likely 2/2 epistaxis - 2U of blood transfused - Will transfuse as necessary - Heme/Onc consulted - Dr. Bermudez 2. Recurrent Epistaxis, possibly 2/2 Vidaza Tx - ENT C/s - Monitor H/H 3. Leukemia - Continue recs per heme/onc 4. Hypertension - Continue home norvasc 5. Hyperlipidemia - Continue home atorvastatin 6. Hx/O Stroke - No acute intervention 7. Hx/O Chronic hematuria - Monitor 8. Hx/O Vertigo - No acute 9. Hx/O Osteopenia - Continue home alendronate (only once a week) 10. GI/DVT prophylaxis -Protonix/SCD's
[2016-11-15] MEDS ORDERED: EPINEPHRINE 0.3 MG SC SCH (09:45)
[2016-11-15] MEDS: Famotidine 20mg/50ml 20 MG/50 ML BAG IV SCH ×2 (10:40→21:59)
--- NOTE | 2016-11-15 21:06 | CARD ---
APPROVED REPORT EKG Measurement Heart [id number] ND [id number] [id number] <Conclusion> Normal sinus rhythm Normal ECG
[2016-11-15 23:19] LABS: HEMATOCRIT 26.1 % (36.0-48.0)
[2016-11-16 06:59] LABS: BASO # 0.08 K/mm3 (0.0-2.0); BASO % 0.6 % (0.0-3.0); EOS % 0.2 % (1.5-5.0); GRAN # 9.81 (1.4-6.5); GRAN % 76.9 % (50.0-68.0); LYMPH # 2.8 (1.2-3.4); LYMPH % 21.8 % (22.0-35.0); MEAN CELL VOLUME 96.1 fl (80.0-105.0); MEAN CORPUSCULAR HEMOGLOBIN 32.4 pg (25.0-35.0); MEAN CORPUSCULAR HGB CONC 33.7 g/dl (31.0-37.0); MEAN PLATELET VOLUME 10.9 fl (7.0-11.0); MONO # 0.1 (0.1-0.6); MONO % 0.5 % (1.0-6.0); RED CELL DISTRIBUTION WIDTH 24.2 % (11.5-14.5); WHITE BLOOD COUNT 12.8 10^3/ul (4.5-11.0)
[2016-11-16 07:05] LABS: PLATELET COUNT 21 10^3/uL (120.0-450.0)
[2016-11-16 07:10] LABS: ALB/GLOB RATIO 1.2 (1.1-1.8); ALKALINE PHOSPHATASE 43 U/L (38-133); ALT/SGPT 33 U/L (7-56); AST/SGOT 27 U/L (15-39); BILIRUBIN,TOTAL 0.5 mg/dL (0.2-1.3); BLOOD UREA NITROGEN 17 mg/dL (7-21); CALCIUM 8.2 mg/dL (8.4-10.5); CARBON DIOXIDE 28 mmol/L (21-33); CHLORIDE 108 mmol/L (98-107); GFR AFRICAN-AMERICAN > 60; GLUCOSE,RANDOM 93 mg/dL (70-110); POTASSIUM 4.1 mmol/L (3.6-5.0); SODIUM 144 mmol/L (132-148); TOTAL PROTEIN 6.5 g/dL (5.8-8.3)
[2016-11-16] MEDS: Famotidine 20mg/50ml 20 MG/50 ML BAG IV SCH ×2 (09:12→21:30)
--- NOTE | 2016-11-16 10:44 | CP.PCM.PN ---
Subjective - Date & Time of Evaluation Date of Evaluation: 11/16/16 Time of Evaluation: 09:30 - Subjective Subjective: Patient seen and examined bedside. No acute overnight events. States that she experienced one bout of epistaxis from the left nostril which subsided after applying gentle pressure. Admits to feeling lightheaded when standing quickly and experiencing dyspnea on exertion. Denies f/c/cp/sob at rest/abdominal pain/n /v/diarrhea/constipation/urinary symptoms. Objective - Vital Signs/Intake and Output Vital Signs (last 24 hours): Temp Pulse Resp BP Pulse Ox 98.4 F 82 22 131/69 95 11/16/16 07:59 11/16/16 09:12 11/16/16 07:59 11/16/16 09:12 11/16/16 07:59 Intake and Output: 11/16/16 11/16/16 06:59 18:59 Intake Total 240 Balance 240 - Medications Medications: Current Medications Acetaminophen (Tylenol 325mg Tab) 650 mg PO Q8H PRN PRN Reason: Pain, Mild (1-3) Last Admin: 11/16/16 09:12 Dose: 650 mg Alendronate Sodium (Fosamax) 70 mg PO Q7D [facility] Amlodipine Besylate (Norvasc) 5 mg PO DAILY LOW Last Admin: 11/16/16 09:12 Dose: 5 mg Atorvastatin Calcium (Lipitor) 20 mg PO DAILY LOW Last Admin: 11/16/16 09:12 Dose: 20 mg Famotidine (Pepcid 20mg/50ml Premix) 20 mg in 50 mls @ 100 mls/hr IV Q12 LOW Last Admin: 11/16/16 09:12 Dose: 100 mls/hr Ondansetron HCl (Zofran Inj) 4 mg IVP Q6H PRN PRN Reason: Nausea/Vomiting Zolpidem Tartrate (Ambien) 5 mg PO HS PRN; Protocol PRN Reason: Insomnia Last Admin: 11/15/16 21:58 Dose: 5 mg - Labs Labs: 11/16/16 06:00 11/16/16 06:00 PT 10.8 Seconds (9.9-11.8) 11/15/16 04:40 INR 1.00 (0.93-1.08) 11/15/16 04:40 APTT 28.0 Seconds (23.7-30.8) 11/15/16 04:40 - Additional Findings Additional findings: Constitutional: a&o x 4, nad, Head and Neck: neck supple, no jvd, trachea midline, carotid midline, no cervical/head mass Eyes: donn, nonicteric sclera, eom intact ENT: auditory acuity grossly intact, throat not congested, no nasal deformity Cardio: rrr, no m/r/g, no carotid bruit, nml s1, s2 Pulm: no accessory muscle use, equal nml breath sounds bilaterally, ctab Abd: s/nt/nd, nbs x 4 q, no palpable masses Derm: +multiple ecchymoses present Extr: no edema, no cyanosis, no calf tenderness, no lesions, no varicosities Neuro: cn II-XII grossly intact, ue and le 5/5 muscle strength bilaterally, no los ue, le bilaterally and core Assessment and Plan - Assessment and Plan (Free Text) Assessment: 66 F with a history of CVA, R eye blindness, HTN, HLD, leukemia dx july 2016 s/p chemo vidaza last treatment 2 weeks ago, myeloproliferative/myelodysplastic synrome, melanoma, chronic hematuria 2/2 bladder stone who was admitted to the hospital for evaluation and treatment of persistent epistaxis and symptomatic acute on chronic anemia. Acute on chronic symptomatic anemia; details- likely 2/2 to epistaxis and chemo; MCV 105.8; likely 2/2 leukemia; August 2016 iron, b12, folate all WNL - Hgb 6.7 to 9.1 s/p 2 unit of leukoradiated pRBC - Peripheral smear is pending - Will transfuse as necessary - Heme/Onc consulted - Dr. Bermudez, appreciate recs Recurrent Epistaxis, details- possibly 2/2 Vidaza Tx details- improved since admission, only experienced one bout of minimal bleed from left nostril - ENT c/s, appreciate recs - Monitor H/H Leukemia; details- dx july 2016 s/p chemo vidaza last treatment 2 weeks ago - Continue recs per heme/onc Leukocytosis details- likely 2/2 to luekemia - Continue recs per heme/onc Hypertension - Continue home norvasc Hyperlipidemia - Continue home atorvastatin Hx of Stroke - continue home statin Hx of Chronic hematuria details- 2/2 bladder stone - monitor H and H Hx of Vertigo - fall precautions - PT consult for treatment and evaluation - oob with assist Hx of Osteopenia - Continue home alendronate (only once a week) GI/DVT prophylaxis -Protonix/SCD's
[2016-11-17 07:40] LABS: BASO # 0.22 K/mm3 (0.0-2.0); BASO % 1.7 % (0.0-3.0); EOS % 0.1 % (1.5-5.0); GRAN # 9.91 (1.4-6.5); GRAN % 76.5 % (50.0-68.0); HEMATOCRIT 27.7 % (36.0-48.0); LYMPH # 2.7 (1.2-3.4); LYMPH % 20.9 % (22.0-35.0); MEAN CELL VOLUME 96.5 fl (80.0-105.0); MEAN CORPUSCULAR HEMOGLOBIN 32.1 pg (25.0-35.0); MEAN CORPUSCULAR HGB CONC 33.2 g/dl (31.0-37.0); MEAN PLATELET VOLUME 9.5 fl (7.0-11.0); MONO # 0.1 (0.1-0.6); MONO % 0.8 % (1.0-6.0); RED CELL DISTRIBUTION WIDTH 22.9 % (11.5-14.5)
[2016-11-17 07:53] LABS: PLATELET COUNT 22 10^3/uL (120.0-450.0)
[2016-11-17 07:55] LABS: ALB/GLOB RATIO 1.2 (1.1-1.8); ALKALINE PHOSPHATASE 49 U/L (38-133); ALT/SGPT 25 U/L (7-56); AST/SGOT 26 U/L (15-39); BILIRUBIN,TOTAL 0.7 mg/dL (0.2-1.3); BLOOD UREA NITROGEN 15 mg/dL (7-21); CALCIUM 8.3 mg/dL (8.4-10.5); CARBON DIOXIDE 29 mmol/L (21-33); CHLORIDE 106 mmol/L (95-110); GFR AFRICAN-AMERICAN > 60; GLUCOSE,RANDOM 95 mg/dL (70-110); POTASSIUM 4.1 mmol/L (3.6-5.0); SODIUM 143 mmol/L (132-148); TOTAL PROTEIN 7.1 g/dL (5.8-8.3)
[2016-11-17 09:29] LABS: NEUTROPHIL 79 % (50.0-70.0)
[2016-11-17 09:30] LABS: ANISOCYTOSIS 1+; HYPOCHROMIA 1+; PLATELET ESTIMATE LOW (NORMAL); POLYCHROMASIA SLIGHT
[2016-11-17] MEDS: Famotidine 20mg/50ml 20 MG/50 ML BAG IV SCH (09:51)
[2016-11-17] MEDS ORDERED: Darbepoetin Alfa 100 mcg/ml Inj SC ONE (10:36)
--- NOTE | 2016-11-17 11:50 | CP.PCM.DIS ---
Provider - Provider Date of Admission: 11/15/16 06:00 Attending physician: Armando Damon MD Primary care physician: Jasson Velazquez MD Time Spent in preparation of Discharge (in minutes): 30 Hospital Course - Lab Results Lab Results: Most Recent Lab Values WBC 13.0 10^3/ul (4.5-11.0) H 11/17/16 07:00 RBC 2.87 10^6/uL (3.5-6.1) L 11/17/16 07:00 Hgb 9.2 g/dL (12.0-16.0) L 11/17/16 07:00 Hct 27.7 % (36.0-48.0) L 11/17/16 07:00 MCV 96.5 fl (80.0-105.0) 11/17/16 07:00 MCH 32.1 pg (25.0-35.0) 11/17/16 07:00 MCHC 33.2 g/dl (31.0-37.0) 11/17/16 07:00 RDW 22.9 % (11.5-14.5) H 11/17/16 07:00 Plt Count 22 10^3/uL (120.0-450.0) L* 11/17/16 07:00 MPV 9.5 fl (7.0-11.0) 11/17/16 07:00 Gran % 76.5 % (50.0-68.0) H 11/17/16 07:00 Lymph % (Auto) 20.9 % (22.0-35.0) L 11/17/16 07:00 Liberty % (Auto) 0.8 % (1.0-6.0) L 11/17/16 07:00 Eos % (Auto) 0.1 % (1.5-5.0) L 11/17/16 07:00 Baso % (Auto) 1.7 % (0.0-3.0) 11/17/16 07:00 Gran # 9.91 (1.4-6.5) H 11/17/16 07:00 Lymph # 2.7 (1.2-3.4) 11/17/16 07:00 Liberty # 0.1 (0.1-0.6) 11/17/16 07:00 Eos # 0.0 (0.0-0.7) 11/17/16 07:00 Baso # 0.22 K/mm3 (0.0-2.0) 11/17/16 07:00 Neutrophils % (Manual) 79 % (50.0-70.0) H 11/17/16 07:00 Lymphocytes % (Manual) 20 % (22.0-35.0) L 11/17/16 07:00 Monocytes % (Manual) 1 % (1.0-6.0) 11/17/16 07:00 Platelet Evaluation Low (NORMAL) 11/17/16 07:00 Polychromasia Slight 11/17/16 07:00 Hypochromasia 1+ 11/17/16 07:00 Anisocytosis (manual) 1+ 11/17/16 07:00 PT 10.8 Seconds (9.9-11.8) 11/15/16 04:40 INR 1.00 (0.93-1.08) 11/15/16 04:40 APTT 28.0 Seconds (23.7-30.8) 11/15/16 04:40 Sodium 143 mmol/L (132-148) 11/17/16 07:00 Potassium 4.1 mmol/L (3.6-5.0) 11/17/16 07:00 Chloride 106 mmol/L (95-110) 11/17/16 07:00 Carbon Dioxide 29 mmol/L (21-33) 11/17/16 07:00 Anion Gap 12 (10-20) 11/17/16 07:00 BUN 15 mg/dL (7-21) 11/17/16 07:00 Creatinine 0.6 mg/dL (0.5-1.4) 11/17/16 07:00 Est GFR ( Amer) > 60 11/17/16 07:00 Est GFR (Non-Af Amer) > 60 11/17/16 07:00 Random Glucose 95 mg/dL (70-110) 11/17/16 07:00 Calcium 8.3 mg/dL (8.4-10.5) L 11/17/16 07:00 Total Bilirubin 0.7 mg/dL (0.2-1.3) 11/17/16 07:00 AST 26 U/L (15-39) 11/17/16 07:00 ALT 25 U/L (7-56) 11/17/16 07:00 Alkaline Phosphatase 49 U/L (38-133) 11/17/16 07:00 Total Protein 7.1 g/dL (5.8-8.3) 11/17/16 07:00 Albumin 3.9 g/dL (3.0-4.8) 11/17/16 07:00 Globulin 3.3 gm/dL 11/17/16 07:00 Albumin/Globulin Ratio 1.2 (1.1-1.8) 11/17/16 07:00 Blood Type A POSITIVE 11/15/16 04:40 Antibody Screen Negative 11/15/16 04:40 Crossmatch See Detail 11/15/16 04:40 BBK History Checked Patient has bt 11/15/16 04:40 - Hospital Course Hospital Course: Patient is a 66 year old female with a PMHx of HTN, HLD, 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 With the use of physical examinations, past medical records, lab work, and consulting physicians including hematology oncology the patient was diagnosed and treated for symptomatic anemia. Patient was given 2 bags of pRBCs and aranesp. Hgb was noted to remain stable over last 2 days. Thrombocytopenia was noted and bale breaker operator treated patient with 1 unit of platelets. Patient was provided with discharge instructions and understands/ agrees with plan. She was instructed to follow up with PMD, hematology/ oncologist, ENT physician, and physical therapy. She was advised to take medications as prescribed and return to ED for evaluation of recurrent epistaxis , headache, dizziness, fever, chills, chest pain, SOB, abdominal pain, intractable nausea/vomitting, diarrhea, constipation, and/or urinary symptoms. Patient is stable for discharge to home. Constitutional: a&o x 4, nad, Head and Neck: neck supple, no jvd, trachea midline, carotid midline, no cervical/head mass Eyes: donn, nonicteric sclera, eom intact ENT: auditory acuity grossly intact, throat not congested, no nasal deformity Cardio: rrr, no m/r/g, no carotid bruit, nml s1, s2 Pulm: no accessory muscle use, equal nml breath sounds bilaterally, ctab Abd: s/nt/nd, nbs x 4 q, no palpable masses Derm: +multiple ecchymoses present Extr: no edema, no cyanosis, no calf tenderness, no lesions, no varicosities Neuro: cn II-XII grossly intact, ue and le 5/5 muscle strength bilaterally, no los ue, le bilaterally and core Assessment and Plan: 66 year old female with a PMHx of HTN, HLD, 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 Macrocytic anemia - resolved s/p 2U of blood transfused - Follow up with Heme/Onc Dr. Bermudez outpatient 2. Recurrent Epistaxis, possibly 2/2 Vidaza Tx - resolved, follow up with ENT outpatient 3. Leukemia, Myelodysplastic Syndrome - Follow up with Heme/Onc Dr. Bermudez outpatient 4. Hypertension - stable, Continue home norvasc 5. Hyperlipidemia - stable, Continue home atorvastatin 6. Hx/O Stroke - No acute intervention - follow up with PMD 7. Hx/O Chronic hematuria - Monitor 8. Hx/O Vertigo - follow with PT outpatient 9. Hx/O Osteopenia - Continue home alendronate (only once a week) case discussed with attending. Discharge Plan - Follow Up Plan Condition: STABLE Disposition: HOME/ ROUTINE Instructions: Bone Marrow Harvesting (DC), Myelodysplastic Syndromes (DC), Myelodysplastic Syndromes (GEN), Hypertension (DC), Hypertension (GEN) Additional Instructions: Discharge Instructions Follow up with aforementioned specialists and PMD within 1 week of discharge. Take medications as prescribed. Return to ED for evaluation of recurrent epistaxis, headache, dizziness, fever, chills, chest pain, SOB, abdominal pain, intractable nausea/vomitting, diarrhea , constipation, and/or urinary symptoms. New Meds/ Changes No new medications Discharge Diagnoses Acute on Chronic Symptomatic Anemia Recurrent Epistaxis Myelodysplastic Syndrome Referrals: Chinyere Bermudez MD [Staff Provider] - Bright Ribeiro DO [Staff Provider] - Jasson Velazquez MD [Primary Care Provider] -
[2016-11-17] MEDS ORDERED: DiphenhydrAMINE 50 mg/ml Inj ONE (19:43)
[2016-11-17] MEDS ORDERED: MethylPREDNISolone 40 mg Vial ONE (19:43)
[2016-11-17] MEDS ORDERED: MethylPREDNISolone 40 mg Vial IVP STA (19:45)
[2016-11-17] MEDS ORDERED: DiphenhydrAMINE 50 mg/ml Inj IVP STA (19:45)
--- NOTE | 2016-11-17 19:46 | CP.PCM.PN ---
Subjective - Date & Time of Evaluation Date of Evaluation: 11/17/16 Time of Evaluation: 19:46 - Subjective Subjective: Patient was seen at bed side because she had itching and rash after she received platelet transfusion. As soon as platelet transfusion finished, she began to have these symptoms. Denies any wheezing of shortness of breath. Has no other complaints. ROS:Negative except as mentioned above. Medical record was reviewed. This 66 year old woman was admitted with epistaxis, fatigue , nausea, dizziness , sob. Has PMH of HTN,CVA,HLD , chronic hematuria, leukemia, left breast cyst excision, left knee surgery. Objective - Vital Signs/Intake and Output Vital Signs (last 24 hours): Temp Pulse Resp BP Pulse Ox 98.8 F 83 18 112/62 97 11/17/16 19:03 11/17/16 19:03 11/17/16 19:03 11/17/16 19:03 11/17/16 16:00 Intake and Output: 11/17/16 11/18/16 18:59 06:59 Intake Total 0 Balance 0 - Medications Medications: Current Medications Acetaminophen (Tylenol 325mg Tab) 650 mg PO Q8H PRN PRN Reason: Pain, Mild (1-3) Last Admin: 11/16/16 09:12 Dose: 650 mg Alendronate Sodium (Fosamax) 70 mg PO Q7D [facility] Amlodipine Besylate (Norvasc) 5 mg PO DAILY [facility] Last Admin: 11/17/16 09:50 Dose: 5 mg Atorvastatin Calcium (Lipitor) 20 mg PO DAILY [facility] Last Admin: 11/17/16 09:50 Dose: 20 mg Famotidine (Pepcid 20mg/50ml Premix) 20 mg in 50 mls @ 100 mls/hr IV Q12 LOW Last Admin: 11/17/16 09:51 Dose: 100 mls/hr Ondansetron HCl (Zofran Inj) 4 mg IVP Q6H PRN PRN Reason: Nausea/Vomiting Last Admin: 11/17/16 18:03 Dose: 4 mg Zolpidem Tartrate (Ambien) 5 mg PO HS PRN; Protocol PRN Reason: Insomnia Last Admin: 11/16/16 21:32 Dose: 5 mg - Labs Labs: 11/17/16 07:00 11/17/16 07:00 PT 10.8 Seconds (9.9-11.8) 11/15/16 04:40 INR 1.00 (0.93-1.08) 11/15/16 04:40 APTT 28.0 Seconds (23.7-30.8) 11/15/16 04:40 Laboratory Last Values WBC 13.0 10^3/ul (4.5-11.0) H 11/17/16 07:00 RBC 2.87 10^6/uL (3.5-6.1) L 11/17/16 07:00 Hgb 9.2 g/dL (12.0-16.0) L 11/17/16 07:00 Hct 27.7 % (36.0-48.0) L 11/17/16 07:00 MCV 96.5 fl (80.0-105.0) 11/17/16 07:00 MCH 32.1 pg (25.0-35.0) 11/17/16 07:00 MCHC 33.2 g/dl (31.0-37.0) 11/17/16 07:00 RDW 22.9 % (11.5-14.5) H 11/17/16 07:00 Plt Count 22 10^3/uL (120.0-450.0) L* 11/17/16 07:00 MPV 9.5 fl (7.0-11.0) 11/17/16 07:00 Gran % 76.5 % (50.0-68.0) H 11/17/16 07:00 Lymph % (Auto) 20.9 % (22.0-35.0) L 11/17/16 07:00 [place] % (Auto) 0.8 % (1.0-6.0) L 11/17/16 07:00 Eos % (Auto) 0.1 % (1.5-5.0) L 11/17/16 07:00 Baso % (Auto) 1.7 % (0.0-3.0) 11/17/16 07:00 Gran # 9.91 (1.4-6.5) H 11/17/16 07:00 Lymph # 2.7 (1.2-3.4) 11/17/16 07:00 [place] # 0.1 (0.1-0.6) 11/17/16 07:00 Eos # 0.0 (0.0-0.7) 11/17/16 07:00 Baso # 0.22 K/mm3 (0.0-2.0) 11/17/16 07:00 Neutrophils % (Manual) 79 % (50.0-70.0) H 11/17/16 07:00 Lymphocytes % (Manual) 20 % (22.0-35.0) L 11/17/16 07:00 Monocytes % (Manual) 1 % (1.0-6.0) 11/17/16 07:00 Platelet Evaluation Low (NORMAL) 11/17/16 07:00 Polychromasia Slight 11/17/16 07:00 Hypochromasia 1+ 11/17/16 07:00 Anisocytosis (manual) 1+ 11/17/16 07:00 PT 10.8 Seconds (9.9-11.8) 11/15/16 04:40 INR 1.00 (0.93-1.08) 11/15/16 04:40 APTT 28.0 Seconds (23.7-30.8) 11/15/16 04:40 Sodium 143 mmol/L (132-148) 11/17/16 07:00 Potassium 4.1 mmol/L (3.6-5.0) 11/17/16 07:00 Chloride 106 mmol/L (95-110) 11/17/16 07:00 Carbon Dioxide 29 mmol/L (21-33) 11/17/16 07:00 Anion Gap 12 (10-20) 11/17/16 07:00 BUN 15 mg/dL (7-21) 11/17/16 07:00 Creatinine 0.6 mg/dL (0.5-1.4) 11/17/16 07:00 Est GFR ( Amer) > 60 11/17/16 07:00 Est GFR (Non-Af Amer) > 60 11/17/16 07:00 Random Glucose 95 mg/dL (70-110) 11/17/16 07:00 Calcium 8.3 mg/dL (8.4-10.5) L 11/17/16 07:00 Total Bilirubin 0.7 mg/dL (0.2-1.3) 11/17/16 07:00 AST 26 U/L (15-39) 11/17/16 07:00 ALT 25 U/L (7-56) 11/17/16 07:00 Alkaline Phosphatase 49 U/L (38-133) 11/17/16 07:00 Total Protein 7.1 g/dL (5.8-8.3) 11/17/16 07:00 Albumin 3.9 g/dL (3.0-4.8) 11/17/16 07:00 Globulin 3.3 gm/dL 11/17/16 07:00 Albumin/Globulin Ratio 1.2 (1.1-1.8) 11/17/16 07:00 Blood Type A POSITIVE 11/15/16 04:40 Antibody Screen Negative 11/15/16 04:40 Crossmatch See Detail 11/15/16 04:40 BBK History Checked Patient has bt 11/15/16 04:40 - Constitutional Appears: Well, No Acute Distress - Head Exam Head Exam: ATRAUMATIC, NORMAL INSPECTION, NORMOCEPHALIC - Eye Exam Eye Exam: Normal appearance - ENT Exam ENT Exam: Normal External Ear Exam - Neck Exam Neck Exam: Normal Inspection - Respiratory Exam Respiratory Exam: NORMAL BREATHING PATTERN. absent: Wheezes - Cardiovascular Exam Cardiovascular Exam: absent: JVD - GI/Abdominal Exam GI & Abdominal Exam: absent: Distended - Rectal Exam Rectal Exam: Deferred - Exam Additional comments: Deferred. - Extremities Exam Extremities Exam: Normal Inspection - Back Exam Back Exam: NORMAL INSPECTION - Neurological Exam Neurological Exam: Alert, Oriented x3 - Psychiatric Exam Psychiatric exam: Normal Affect, Normal Mood - Skin Skin Exam: Rash (multiple erythemaotuon patches , mostly on back, sparse in upper extremity.) Assessment and Plan - Assessment and Plan (Free Text) Assessment: Platelet transfusion reaction. Epistaxis. Thrombocytopenia. Hx CVA. HLD. Hx Leukemia. Obesity. Plan: Benadryl 25 mg IV stat. Solumedrol 60 mg IV stat. Benadryl 25 mg po q6h prn itching x 4 doses. Follow transfusion reaction protocols. Continue present management.
[2016-11-17 19:56] VITALS: BP 117/67; PULSE 18; RESP 77; TEMP 98.1
[2016-11-17 20:56] VITALS: O2SAT 98
--- NOTE | 2016-11-17 23:44 | CON ---
DATE: 11/17/2016 REASON FOR CONSULTATION: Known myelodysplastic syndrome and myeloproliferative disorder syndrome. HISTORY OF PRESENT ILLNESS: The patient is a 66-year-old female, well-known to me with past medical history of hypertension, hyperlipidemia, CVA and recent diagnosis of MDS overlapping with MPD. She has had a bone marrow and has been on Vidaza, has started second cycle approximately a week ago. Now, admitted with pancytopenia once again. She states that she has been having mild shortness of breath and also nosebleeds, also had lot of nausea with the last cycle of Vidaza and has only received 5 days of it as opposed to 7. She is now status post PRBC transfusion and her hemoglobin has improved, but her platelets remain at 22,000. She also has had chronic hematuria and minor bladder stones. 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 ALLERGIES: MECLIZINE, NUTS AND SHELLS. SOCIAL HISTORY: Positive for smoking in the past, but quit 5 years ago. Denies any alcohol use or illicit drug use. FAMILY HISTORY: Positive for diabetes and anemia, but there is no history of MDS. She does have history of cancers in the family. MEDICATIONS AT HOME: Include amlodipine, pantoprazole, zolpidem, simvastatin, Zofran, Fosamax and currently on Vidaza and Procrit as an outpatient. REVIEW OF SYSTEMS: As per the HPI. PHYSICAL EXAMINATION GENERAL: The patient is an elderly pleasant female, lying in bed, in no acute distress. VITAL SIGNS: Reveal a temperature of 98.0, pulse of 74, respiratory rate of 20, and a blood pressure 111/57. HEENT: Normocephalic and atraumatic. Eyes; pupils equal, round, and reactive to light and accommodation. Extraocular muscles are intact. There is pallor. No icterus is noted. NECK: Supple with no adenopathy. No JVD. No thyromegaly. CARDIOPULMONARY: S1, S2 is heard. LUNGS: Clear to auscultation bilaterally with no rales or rhonchi. ABDOMEN: Positive bowel sounds, soft, nontender, nondistended. No organomegaly is noted. EXTREMITIES: There is no edema, clubbing or cyanosis. LABORATORY DATA: Reveal a white count of 13.0, hemoglobin 9.2, hematocrit 27.7, MCV of 96.5, and a platelet count of 222,000. Coag studies are within normal limits. Chemistries are within normal limits. ASSESSMENT AND PLAN: An elderly female with known history of myelodysplastic syndrome and myeloproliferative disorder overlapping syndrome, has been seen as a second opinion at [facility] by Dr. Echeverria. He agrees with my current plan of treating the patient with Vidaza, a hypomethylating agent. She is also being considered for a bone marrow transplant at that time, but has not been able to get over there for evaluation. She just received her second dose of Vidaza last week and counts have once again dropped. We will continue transfusion support with packed red blood cells as well as platelet transfusions as needed. We will likely have to cut down her cycle from 7 days to 5 days due to overwhelming side effects and cytopenia. Thank you for the consult. We will follow. Chinyere Bermudez MD
== END 2016-11-17 22:24 | disposition home or self-care (01) | DRG 809 ==
LOC: ED 02:08 → ERH 06:00 → 3RNO 09:24
PROVIDERS: ADMIT Internal Medicine; ATTEND Internal Medicine
PROC: 30233N1 Transfusion of Nonautologous Red Blood Cells into Peripheral Vein, Percutaneous Approach (ICD-10-PCS; principal; 2016-11-15)
PROC: 6A550Z2 Pheresis of Platelets, Single (ICD-10-PCS; 2016-11-17)
DX: D61.818 Other pancytopenia (principal); C95.90 Leukemia, unspecified not having achieved remission; R04.0 Epistaxis; T45.1X5A Adverse effect of antineoplastic and immunosuppressive drugs, initial encounter; D46.9 Myelodysplastic syndrome, unspecified; D53.9 Nutritional anemia, unspecified; I10 Essential (primary) hypertension; E78.5 Hyperlipidemia, unspecified; R31.9 Hematuria, unspecified; N21.0 Calculus in bladder; R42 Dizziness and giddiness; T80.92XA Unspecified transfusion reaction, initial encounter; Y84.8 Other medical procedures as the cause of abnormal reaction of the patient, or of later complication, without mention of misadventure at the time of the procedure; E66.9 Obesity, unspecified; H54.41 Blindness, right eye, normal vision left eye; I69.398 Other sequelae of cerebral infarction; Z68.30 Body mass index [BMI] 30.0-30.9, adult; Z87.891 Personal history of nicotine dependence

== ENCOUNTER 2017-02-22 18:34 | Emergency (ER) | payer OTHER ==
[2017-02-22 18:35] VITALS: BMI 30.2
[2017-02-22 18:50] VITALS: RESP 18; TEMP 98.9; O2SAT 97
[2017-02-22 19:46] LABS: BASO # 0.01 K/mm3 (0.0-2.0); BASO % 0.2 % (0.0-3.0); EOS % 0.2 % (1.5-5.0); GRAN # 2.65 (1.4-6.5); GRAN % 51.1 % (50.0-68.0); LYMPH # 2.1 (1.2-3.4); LYMPH % 40.2 % (22.0-35.0); MEAN CELL VOLUME 87.4 fl (80.0-105.0); MEAN CORPUSCULAR HEMOGLOBIN 31.1 pg (25.0-35.0); MEAN CORPUSCULAR HGB CONC 35.5 g/dl (31.0-37.0); MEAN PLATELET VOLUME 8.5 fl (7.0-11.0); MONO # 0.4 (0.1-0.6); MONO % 8.3 % (1.0-6.0); RED CELL DISTRIBUTION WIDTH 14.8 % (11.5-14.5); WHITE BLOOD COUNT 5.2 10^3/ul (4.5-11.0)
[2017-02-22 19:55] LABS: ALB/GLOB RATIO 1.3 (1.1-1.8); ALKALINE PHOSPHATASE 52 U/L (38-126); ALT/SGPT 37 U/L (7-56); AST/SGOT 34 U/L (14-36); BILIRUBIN,TOTAL 0.6 mg/dL (0.2-1.3); BLOOD UREA NITROGEN 24 mg/dL (7-21); CARBON DIOXIDE 26 mmol/L (21-33); CHLORIDE 105 mmol/L (98-107); GFR AFRICAN-AMERICAN > 60; GLUCOSE,RANDOM 107 mg/dL (70-110); POTASSIUM 3.8 mmol/L (3.6-5.0); SODIUM 141 mmol/L (132-148); TOTAL PROTEIN 6.7 g/dL (5.8-8.3)
[2017-02-22] MEDS ORDERED: Sodium Chloride 0.9% 500 ML IV STA ×2 (20:00→21:06)
[2017-02-22 20:02] LABS: INR 1.01 (0.93-1.08); PARTIAL THROMBOPLASTIN TIME 26.5 Seconds (25.1-36.5)
--- NOTE | 2017-02-22 20:07 | ED PDOC ---
Arrival/HPI - General Historian: Patient - History of Present Illness Time/Duration: 24 hours Symptom Onset: Sudden Symptom Course: Intermittent Activities at Onset: Rest, Light Context: Home <Jerry Fermin - Last Filed: 02/22/17 20:08> <VianneyjohnathanJenelle A - Last Filed: 02/22/17 22:26> - General Chief Complaint: Chest Pain Time Seen by Provider: 02/22/17 19:57 - History of Present Illness Narrative History of Present Illness (Text): 02/22/17 20:00 Mrs. 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 Patient reports that starting this morning she has had excessive epistaxis that has been refractory to ice, pressure and positional treatments and she has had generalized weakness and SOB since the onset of her epistaxis. She reports that this has happened to her on multiple occasions in the past for which she has been hospitalized and received blood transfusions. She reports that these are associated with her chemotherapy regimen, which is being monitered by Dr. Bermudez, her heme/onc doctor. She denies any fever, chills , headache, changes in her vision, chest pain, palpitations, cough, wheezing, abdominal pain, N/V/D/C, pain/burning with urination, rashes or any numbness/ tingling/weakness of any extremity. (Jerry Fermin) Past Medical History - Provider Review Nursing Documentation Reviewed: Yes - Travel History Have you recently traveled outside [place] w/in the past 3 mons?: No - Past History Past History: Non-Contributing - Infectious Disease Hx of Infectious Diseases: None - Reproductive Menopause: No - Cardiac Hx Cardiac Disorders: Yes Hx Hypertension: Yes - Pulmonary Hx Respiratory Disorders: Yes (SMOKED 4-5 CIG A DAY. QUIT 2012) - Neurological HX Cerebrovascular Accident: Yes (deficit: occasional numbness of bilateral hands and toes) - HEENT Hx HEENT Disorder: Yes 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) - Renal Hx Renal Disorder: No - Endocrine/Metabolic Hx Endocrine Disorders: No - Hematological/Oncological Hx Blood Disorders: Yes Hx Cancer: Yes (melanoma of right breast,LEUKEMIA) Hx Chemotherapy: Yes (1ST CHEMO LAST WEEK SEPTEMBER 2016) Other/Comment: MDP/MDS Syndrome - Integumentary Hx Dermatological Disorder: No Other/Comment: EDEMA +1 PITTING - Musculoskeletal/Rheumatological Hx Falls: No - Gastrointestinal Hx Gastrointestinal Disorders: Yes Other/Comment: 5 colonic polyps - Genitourinary/Gynecological Hx Genitourinary Disorders: Yes Hx Hematuria: Yes (chronic) - Psychiatric Hx Psychophysiologic Disorder: Yes (SMOKED CIGARETTES AND ETOH SOCIALLY QUIT BOTH 2012) Hx Substance Use: No - Surgical History Hx Orthopedic Surgery: Yes (Left knee x2) Other/Comment: cyst removal from both breasts. right breAst duct removal - Anesthesia Hx Anesthesia: Yes Hx Anesthesia Reactions: No Hx Malignant Hyperthermia: No <Jerry Fermin - Last Filed: 02/22/17 20:08> Family/Social History - Physician Review Nursing Documentation Reviewed: Yes Family/Social History: Diabetes, Hypertension, Neoplasm/Cancer Smoking Status: Former Smoker Hx Alcohol Use: (QUIT 2012.DRANK SOCIALLY) Hx Substance Use: No <Jerry Fermin - Last Filed: 02/22/17 20:08> Allergies/Home Meds <Jerry Fermin - Last Filed: 02/22/17 20:08> <Jenelle Ramirez - Last Filed: 02/22/17 22:26> Allergies/Adverse Reactions: Allergies meclizine Adverse Reaction (Verified 11/15/16 04:58) DIZZINESS nut - unspecified Adverse Reaction (Verified 11/15/16 04:58) ANAPHYLAXIS shellfish derived Adverse Reaction (Verified 11/15/16 04:58) ANGIOEDEMA FRUIT Allergy (Uncoded 11/15/16 04:58) SHORTNESS OF BREATH Home Medications: Home Meds Medication Instructions Recorded Confirmed Zolpidem [Ambien] 1 tab PO PRN PRN 08/18/16 11/15/16 Alendronate [Fosamax] 70 mg PO DAILY 10/20/16 11/15/16 Simvastatin [Zocor] 20 mg PO DAILY 10/20/16 11/15/16 amLODIPine [Norvasc] 5 mg PO DAILY 10/20/16 11/15/16 Review of Systems - Physician Review All systems were reviewed & negative as marked: Yes - Review of Systems Constitutional: Other (Generalized weakness). absent: Normal, Fevers, Night Sweats Eyes: Normal. absent: Vision Changes ENT: Epistaxis. absent: Normal Respiratory: SOB. absent: Normal, Cough, Wheezing Cardiovascular: Normal. absent: Chest Pain, Palpitations Gastrointestinal: Normal. absent: Abdominal Pain, Constipation, Diarrhea, Nausea, Vomiting Genitourinary Female: Normal. absent: Dysuria Musculoskeletal: Normal. absent: Back Pain, Neck Pain Skin: Normal. absent: Rash Neurological: Normal. absent: Headache Endocrine: Normal Hemo/Lymphatic: Normal Psychiatric: Normal <ZanderJerry - Last Filed: 02/22/17 20:08> Physical Exam Vital Signs Reviewed: Yes Temperature: Afebrile Blood Pressure: Normal Pulse: Tachycardic Respiratory Rate: Normal Appearance: Positive for: Well-Appearing, Non-Toxic, Uncomfortable. No: Comfortable Pain Distress: None Mental Status: Positive for: Alert and Oriented X 3 - Systems Exam Head: Present: Atraumatic, Normocephalic Pupils: Present: PERRL Extroacular Muscles: Present: EOMI Conjunctiva: Present: Other (Pallor bilaterally). No: Normal Mouth: Present: Moist Mucous Membranes, Normal Lips, Normal Tounge, Normal Teeth Nose (External): Present: Atraumatic. No: Abrasion, Contusion, Laceration, Lesions Nose (Internal): Present: Normal Inspection, No Active Bleeding. No: Edematous , Clear Mucous, Rhinorrhea, Septal Hematoma, Epistaxis Neck: Present: Normal Range of Motion, Trachea Midline. No: Meningeal Signs, MIDLINE TENDERNESS, Paraspinal Tenderness, JVD, Lymphadenopathy Respiratory/Chest: Present: Good Air Exchange, Rhonchi (LLL), Tender to Palpation (Over anterior left chest wall). No: Clear to Auscultation, Respiratory Distress, Accessory Muscle Use, Wheezes, Decreased Breath Sounds Cardiovascular: Present: Normal S1, S2, Peripheal Pulses Present, Tachycardic. No: Regular Rate and Rhythm, Murmurs, Irregular Rhythm, Bradycardic, Rub, Gallop , Muffled Abdomen: Present: Normal Bowel Sounds. No: Tenderness, Distention, Peritoneal Signs Back: Present: Normal Inspection. No: CVA Tenderness, Midline Tenderness, Paraspinal Tenderness Upper Extremity: Present: Normal Inspection. No: Cyanosis, Edema Lower Extremity: Present: Normal Inspection. No: Edema Neurological: Present: GCS=15, CN II-XII Intact, Speech Normal Skin: Present: Warm, Dry, Normal Color. No: Rashes Lymphatic: No: Cervical Adenopathy Psychiatric: Present: Alert, Oriented x 3, Normal Insight, Normal Concentration <Jerry Fermin - Last Filed: 02/22/17 20:08> Vital Signs Temp Pulse Pulse Resp BP Pulse Ox 02/22/17 22:18 92 H 18 143/73 97 02/22/17 18:49 101 H 02/22/17 18:40 98.9 F 103 H 18 127/70 97 Medical Decision Making - Lab Interpretations I have reviewed the lab results: Yes - RAD Interpretation Dental Assistant Instructor: ED Physician, Radiologist <Jerry Fermin - Last Filed: 02/22/17 20:08> <Jenelle Ramirez - Last Filed: 02/22/17 22:26> ED Course and Treatment: 02/22/17 20:14 Impression: 66 year old female with a past medical history significant 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 Agree with above history and physical. Patient has complicated medical history and is followed by Dr. Bermudez- heme/onc. She reported epistaxis that has now resolved that caused dizziness. Hgb:5.5 on lab work. Type and cross of 2 units RBCS (irradiated) ordered and will transfer to tele observation for transfusion. Platelets resulted at [address] Lanier requesting platelets transfusion. HR improving after IVF. Heme/onc consult placed. Resident called me to bedside as patient was angry that she had to ambulate to bathroom after requesting bed [place]. Nurse reports that she was with critical patient and unable to give patient bed [place]. Patient's daughter talked to administrative support clerk Natalia and nurse and reports that she is coming to get her mother and will take her to another hospital. Patient's daughter is upset that her mother had to wait for bed [place] and is also reporting that administrative support clerk hung up on her. I immediately spoke to patient and she reports she wants to go. Patient refusing to consent to additional blood work or interventions. 02/22/17 22:10 Patient's daughter arrived and nurse and I again had conversation with patient, now with patient's daughter at bedside about critical platelets and rbc values and need for admission for transfusion and hematology consult. Patient reports that she wants to go to [facility] where her doctors are. Patient and patient's daughter report they immediately want to leave and will go straight to [facility]. Leaving Against Medical Advice (AMA): The patient is choosing to leave against medical advice. I have personally explained to the patient that choosing to do so may result in permanent bodily harm, spontaneous bleeding, permanent disability, or . I have discussed at great length that without further evaluation and monitoring there may be unforeseen circumstances and/or deterioration causing permanent bodily harm or as a result of their choice. The patient is alert, oriented, and shows the mental capacity to make clear decisions regarding the patients health care at this time. The patient continues to wish to leave against medical advice. Patient is aware of the importance to following up as instructed. The patient has been advised that they should return to the emergency room immediately if they change their mind at any time, or if their condition begins to change or worsen in any way. 02/22/17 22:22 02/22/17 22:26 (Jenelle Ramirez) - Lab Interpretations Lab Results: 02/22/17 20:19 02/22/17 19:25 Lab Results 02/22/17 20:19: WBC 5.2 D, RBC 1.90 L, Hgb 5.9 L* D, Hct 16.6 L*, MCV 87.4 D, MCH 31.1, MCHC 35.5, RDW 14.8 H, Plt Count 5 L*, MPV 8.5, Gran % 51.1, Lymph % ( Auto) 40.2 H, [place] % (Auto) 8.3 H, Eos % (Auto) 0.2 L, Baso % (Auto) 0.2, Gran # 2.65, Lymph # 2.1, [place] # 0.4, Eos # 0.0, Baso # 0.01 02/22/17 19:25: Blood Type A POSITIVE, Antibody Screen Negative, Crossmatch See Detail, BBK History Checked Patient has bt 02/22/17 19:25: PT 11.0, INR 1.01, APTT 26.5 02/22/17 19:25: Sodium 141, Potassium 3.8, Chloride 105, Carbon Dioxide 26, Anion Gap 14, BUN 24 H, Creatinine 1.0, Est GFR ( Amer) > 60, Est GFR ( Non-Af Amer) 56, Random Glucose 107, Calcium 9.0, Total Bilirubin 0.6, AST 34, ALT 37, Alkaline Phosphatase 52, Total Protein 6.7, Albumin 3.8, Globulin 2.9, Albumin/Globulin Ratio 1.3 - RAD Interpretation Radiology Orders: 02/22/17 19:13 CHEST PORTABLE [RAD] Stat - Medication Orders Current Medication Orders: Discontinued Medications Sodium Chloride (Sodium Chloride 0.9%) 500 mls @ 999 mls/hr IV .Q31M STA Stop: 02/22/17 20:30 Last Admin: 02/22/17 21:17 Dose: Not Given Non-Admin Reason: Patient Refused Sodium Chloride (Sodium Chloride 0.9%) 500 mls @ 999 mls/hr IV .Q31M STA Stop: 02/22/17 21:36 Last Admin: 02/22/17 21:18 Dose: Not Given Non-Admin Reason: Patient Refused Disposition/Present on Arrival - Present on Arrival History of DVT/PE: No History of Uncontrolled Diabetes: No Urinary Catheter: No History of Decub. Ulcer: No History Surgical Site Infection Following: None <Jerry Fermin - Last Filed: 02/22/17 20:08> - Present on Arrival Any Indicators Present on Arrival: No - Disposition Have Diagnosis and Disposition been Completed?: Yes Disposition Time: 22:25 <Jenelle Ramirez - Last Filed: 02/22/17 22:26> - Disposition Diagnosis: Thrombocytopenia, Anemia Disposition: AGAINST MEDICAL ADVICE Condition: SERIOUS
[2017-02-22 20:28] LABS: HEMATOCRIT 16.6 % (36.0-48.0); PLATELET COUNT 5 10^3/uL (120.0-450.0)
[2017-02-22 22:19] VITALS: BP 143/73; PULSE 92
[2017-02-22 23:00] LABS: PLATELET ESTIMATE LOW (NORMAL)
--- NOTE | 2017-02-23 08:16 | RAD ---
HISTORY: shortness of breath COMPARISON: 10/20/2016 FINDINGS: LUNGS: No active pulmonary disease. PLEURA: No significant pleural effusion identified, no pneumothorax apparent. CARDIOVASCULAR: Normal. OSSEOUS STRUCTURES: No significant abnormalities. VISUALIZED UPPER ABDOMEN: Normal. OTHER FINDINGS: None. IMPRESSION: No active disease.
--- NOTE | 2017-02-23 10:53 | CARD ---
APPROVED REPORT EKG Measurement Heart [id number] <Conclusion> Sinus tachycardia Otherwise normal ECG
== END 2017-02-22 22:20 | disposition left against medical advice (07) ==
LOC: ED 18:34 → ERH 21:09 → UNDOADMOB 21:09 → ED 22:20
DX: D69.6 Thrombocytopenia, unspecified (principal); D64.9 Anemia, unspecified; I10 Essential (primary) hypertension; E78.5 Hyperlipidemia, unspecified; Z86.73 Personal history of transient ischemic attack (TIA), and cerebral infarction without residual deficits; Z87.891 Personal history of nicotine dependence